=== PATIENT | male | born 1970 | race Two or more races ===

== ENCOUNTER 2024-08-23 12:02 | Inpatient (IN) | payer MEDICAID, OTHER ==
[2024-08-23] VITALS (9 sets, daily range): BP systolic 129–136; BP diastolic 58–64; PULSE 75–104; RESP 13–33; TEMP 97.9; O2SAT 91–100
[~2024-08-23] VITALS: Ht 177.8 cm; Wt 107.1 kg
[2024-08-23] MEDS: VANCOMYCIN 1GM/250ML KIT 250 ML IV SCH (00:15)
[2024-08-23] MEDS: InsuLIN REG 1unit/0.01ml Soln (100units/ml) SC SCH (00:15)
--- NOTE | 2024-08-23 12:29 | ED.PDOC ---
Musculoskeletal HPI Comments HPI: 53 year old male brought in by son presents to the ED with chief complaint of left foot wound. Patient reports that he has been experiencing left foot swelling, pain, redness for the past 2 days. Patient relays that he has been visiting his embedded systems designer every 3 days for wound checks as he had a callous shaved at the wound site performed by Dr. Saldana previously. Patient states when checked today by his Pleat Taper, the redness had been spreading up his leg and he was advised to come to the ED for further evaluation and treatment. Patient notes he has had some recent fever and has been taking antibiotics for the past 10 days. Patient currently has no feeling to his lower extremities due to byron betes. Patient reports that he has not taken his blood pressure medication this morning. Patient denies any N/V/D, dizziness, chills, chest pain, or SOB. Initial Vital Signs: Temp : 99.6F BP: 174/82 HR: 97 RR: 16 SpO2: 97% Past Medical History: DM, HTN, HLD Past Surgical History: Denies Social History: Denies smoking, ETOH, or drug use. Allergies: NKDA HPI: Poor Historian. REVIEW OF SYSTEMS: CONSTITUTIONAL: Denies acute: fever, diaphoresis, chills, generalized weakness. HEAD: Denies acute: headache, photophobia Eyes: Denies acute: Double vision, vision loss, eye pain, eye discharge. EARS: Denies acute: tinnitus, hearing loss, ear discharge, ear pain, THROAT: Denies acute: sore throat, swelling, difficulty swallowing , pain with swallo wing, change in voice. NECK: Denies acute: neck pain, neck swelling, stiff neck. HEART: Denies acute : chest pain, palpitations, LUNGS: Denies acute: SOB, wheezing, cough, hemoptysis ABDOMEN: Denies acute: abdominal pain, Nausea, Vomiting, diarrhea, melena , hematemesis, hematochezia SKIN: Denies acute: itchiness. EXTREMITIES: Denies acute: calf pain, numbness, tingling, weakness, denies pain in extremity. Denies acute: Low back pain. Neuro: Denies acute: focal neurological deficit, motor or sensory focal neurological deficit, tremors, seizure like activity, confusion, dizziness, change in mental status, loss of bowel or bladder function, cauda equina like symptoms. : Denies acute: dysuria, hematuria, flank pain, increase in urinary frequency. PSYCH: Denies acute: hallucination, suicidal ideation, homicidal ideation. PHYSICAL EXAM: General: no acute distress, awake and alert. Head: normocephalic, atraumatic. Neck: supple, trachea is midline, no swelling. Throat: Normal phonation. Eyes:, no erythema, no purulent discharge, no proptosis, no icterus. Heart: regular rate, regular rhythm, no significant murmur appreciated. Lungs: no apparent respiratory distress, Able to speak in full sentences. No wheezing, no rhonchi, no crackles. No stridors Clear to auscultation bilaterally. Abdomen: non tender to palpation, non distended, soft, no guarding, no rebound, + bowel sounds. Neuro: Awake, Alert, oriented to name, self, situation, follows commands GCS=15. Speech is normal. Skin: no petechia, no purpura, no cyanosis, non-pale, not jaundice. Lower extremities: no deformity, no focal swelling, no calf TTP. Evaluation of the leg complaint: Left lower extremity foot ulcer/wound at the lateral aspect of the foot with the associated puffiness of the foot and redness and generalized erythema that extends all the way to [id number]. Patient is neurovascularly intact in the affected extremity. Pedal pulses palpable. Motor and sensory are present. Makes eye contact. moves all four extremities. Face: no apparent facial droop. Ambulating in the ED independently. ED COURSE: Chief Complaint: Lower Extremity Time Seen by MD: 12:20 Reviewed Notes: Medications, Allergies Allergies: Coded Allergies: NO KNOWN ALLERGIES (Unverified , 08/23/24) Information Source: Patient, Relative Mode of Arrival: Wheelchair Was a procedure done? Was a procedure done?: No Differential Diagnosis EXT Differential Diagnosis: Cellulitis, Other (Ddx include but not limited to cellulitis, abscess, lymphadenitis, lymphangitis, trauma, DVT, venous insufficiency, trauma, r/o septic joint., r/o associated osteomylitis, flexor tensenovitis, deep tissue infection, neoplasm, necrotizing fascitits, hematoma, gout.) X-Ray, Labs, Meds, VS Vital Signs Date Time Temp Pulse Resp B/P (MAP) Pulse Ox O2 Delivery O2 Flow Rate FiO2 08/23/24 19:20 97.7 88 12 159/92 (114) 95 97.7 08/23/24 19:20 Room Air* 0 21 08/23/24 18:15 88 20 151/87 (108) 93 08/23/24 16:00 86 08/23/24 16:00 86 16 145/82 (103) 95 08/23/24 14:00 97.9 97 16 158/103 (121) 96 97.9 08/23/24 13:15 104 18 97 Room Air* 0 08/23/24 12:46 104 18 97 Room Air 08/23/24 12:46 98.9 104 18 160/75 (103) 97 98.9 08/23/24 12:16 99.6 97 16 174/82 (112) 97 99.6 Lab Test 08/23/24 19:01 08/23/24 14:46 08/23/24 12:57 08/23/24 12:37 Range/Units Prothrombin Time 14.1 H 9.3-11.8 sec Prothrombin Time INR 1.37 H 0.9-1.15 Activated Partial Thromboplast Time 38.4 H 24.5-34.5 SEC Lactic Acid Level 1.3 2.5 *H 0.4-2.0 mmol/L White Blood Count 21.9 H 4.4-10.8 10^3/uL Red Blood Count 4.57 4.5-5.90 10^6/uL Hemoglobin 12.8 L 13.5-17.5 g/dL Hematocrit 39.1 L 41.0-53.0 % Mean Corpuscular Volume 85.6 80.0-100.0 fL Mean Corpuscular Hemoglobin 28.1 28.0-32.0 pg Mean Corpuscular Hemoglobin Concent 32.8 32.0-36.0 g/dL Red Cell Distribution Width 14.6 H 11.8-14.3 % Platelet Count 474 H 140-450 10^3/uL Mean Platelet Volume 7.2 6.9-10.8 fL Neutrophils (%) (Auto) 91.9 H 37.0-80.0 % Lymphocytes (%) (Auto) 2.6 L 10.0-50.0 % Monocytes (%) (Auto) 5.2 0.0-12.0 % Eosinophils (%) (Auto) 0.2 0.0-7.0 % Basophils (%) (Auto) 0.1 0.0-2.0 % Neutrophils # (Auto) 20.2 H 1.6-8.6 10 ^3/uL Lymphocytes # (Auto) 0.6 0.4-5.4 10 ^3/uL Monocytes # (Auto) 1.1 0-1.3 10 ^3/uL Eosinophils # (Auto) 0 0-0.8 10 ^3/uL Basophils # (Auto) 0 0-0.2 10 ^3/uL Nucleated Red Blood Cells 0.0 % Erythrocyte Sedimentation Rate 76 H 0-20 mm/hr Sodium Level 124 L 136-145 mmol/L Potassium Level 5.4 H 3.5-5.1 mmol/L Chloride Level 95 L 98-107 mmol/L Carbon Dioxide Level 22 20-31 mmol/L Anion Gap 7 5-15 Blood Urea Nitrogen 22 9-23 mg/dL Creatinine 1.05 0.700-1.30 mg/dL Glomerular Filtration Rate Calc 84 >90 mL/min BUN/Creatinine Ratio 21.0 H 10.0-20.0 Serum Glucose 137 H 74-106 mg/dL Calcium Level 8.8 8.7-10.4 mg/dL Total Bilirubin 1.5 H 0.2-1.0 mg/dL Aspartate Amino Transferase (AST) 290 H 13-40 U/L Alanine Aminotransferase (ALT) 222 H 7-40 U/L Alkaline Phosphatase 212 H 46-116 U/L Troponin I High Sensitivity 10 </=54 ng/L C-Reactive Protein High Sensitivity > 20.00 H <1.0 mg/dL B-Type Natriuretic Peptide 368.21 0-100 pg/mL Total Protein 6.9 5.7-8.2 g/dL Albumin 3.5 3.2-4.8 g/dL Urine Color Yellow Yellow Urine Clarity Clear Clear Urine pH 5.0 5.0-9.0 Urine Specific [place] 1.019 1.001-1.035 Urine Protein 1+ H Negative Urine Ketones Trace Negative Urine Blood 1+ H Negative /uL Urine Nitrite Negative Negative Urine Bilirubin Negative Negative Urine Urobilinogen Normal Negative mg/dL Urine Leukocyte Esterase Negative Negative /uL Urine RBC 2 0 - 3 /hpf Urine Microscopic WBC 2 0-3 /HPF Urine Squamous Epithelial Cells None seen <5 /hpf Urine Bacteria None seen None Seen /hpf Urine Glucose 4+ H Normal mg/dL Test 08/23/24 12:13 Range/Units POC Glucose 141 H 70-106 mg/dl Current Medications Medications (Trade) Dose Ordered Sig/Rosana Route Start Time Stop Time Status Last Admin Sodium Chloride 1,000 ml @ 1,000 mls/hr Q1H ONCE IV 08/23/24 12:30 08/23/24 13:29 DC 08/23/24 13:37 Piperacillin Sod/ Tazobactam Sod 100 ml @ 100 mls/hr ONCE ONCE IV 08/23/24 12:30 08/23/24 13:29 DC 08/23/24 13:36 Vancomycin HCl 250 ml @ 250 mls/hr ONCE ONCE IV 08/23/24 12:30 08/23/24 13:29 DC 08/23/24 12:30 Metronidazole 100 ml @ 100 mls/hr ONCE ONCE IV 08/23/24 17:45 08/23/24 18:44 DC 08/23/24 18:06 Sodium Chloride 1,000 ml @ 1,000 mls/hr Q1H ONCE IV 08/23/24 17:45 08/23/24 18:44 DC 08/23/24 18:07 [place] [id number] Ph: [phone] DIAGNOSTIC IMAGING Diagnostic Imaging Report : [id number] Signed PATIENT: ADAM RIVAS AACCT: [id number] UNIT: [id number] : 1970 LOC: ER ROOM / BED: / AGE / SEX: 53 / M ADM STATUS: REG ER SERVICE 1242 ORDERING PHYSICIAN: KD DIOP DO PROCEDURE(s): LLDVT - LT Lower DVT REASON: redness swelling ORDER NUMBER(s): [id number], ACCESSION NUMBER(s): [id number] Left lower extremity venous duplex Clinical History: redness swelling Comparison: None Technique: Duplex Doppler evaluation of the deep venous system of the left lower extremity from the common femoral vein to the popliteal vein including color Doppler and spectral/pulsed waveform analysis was performed. Findings: The common femoral vein demonstrates appropriate compressibility and waveform variability. There is compressibility/patency of the great saphenous vein at the proximal thigh. The femoral vein demonstrates appropriate compressibility and waveform variability. The deep femoral vein demonstrates appropriate compressibility and waveform variability. The popliteal vein demonstrates appropriate compressibility and waveform variability. There is normal compressibility at the tibioperoneal trunk. Impression: No left femoropopliteal venous thrombosis. ATED BY: ALEX CHAVEZ MD DICTATED DATE/TIME: 08/23/24 135 SIGNED BY: ALEX CHAVEZ MD SIGNED DATE/TIME: 08/23/24 135 CC: [place] [address] Ph: [phone] DIAGNOSTIC IMAGING Diagnostic Imaging Report : [id number] Signed PATIENT: ADAM RIVAS AACCT: [id number] UNIT: [id number] : 1970 LOC: ER ROOM / BED: / AGE / SEX: 53 / M ADM STATUS: REG ER SERVICE 1226 ORDERING PHYSICIAN: KD DIOP DO PROCEDURE(s): LE1CR - LT LOWER EXTREMITY W CONTRAS REASON: foot wound infection ORDER NUMBER(s): [id number], ACCESSION NUMBER(s): [id number] Procedure: CT LT LOWER EXTREMITY W CONTRAS Reason for study/Clinical History: foot wound infection Comparison Study: None available at time of dictation. CT LEFT foot and ankle with IV contrast Radiation Dose Information: CT Dose: CTDI volume is 7.75 mGy. Dose-length product is 202.22 mGy*cm Omnipaque 300: 85 mL TECHNIQUE: Multiple CT images of the distal left tibia and fibula and left was performed on the [employer] multi slice CT scanner at [facility] . 3D postprocessing images were performed on a dedicated workstation and images were reviewed and interpreted for reporting. FINDINGS: Vascular: Opacified anterior tibial artery and dorsalis pedis and posterior tibial artery. Subcutaneous edema. Subcutaneous air over the dorsum plantar soft tissues of the foot. Small bubbles of air noted extending over the and between the tarsal bones and metatarsals and in the soft tissues extending along the distal tibia and fibula. IMPRESSION: 1. Subcutaneous edema around the ankle and foot. 2. Calcified dorsalis pedis and anterior tibial artery and posterior tibial artery. Calcifications are so dense that contrast is not definitively identified. 3. Scattered bubbles of air along the dorsum of the left tarsals metatarsal plantar surface of the left foot. 4. Subcutaneous air extending along the lateral surface of the distal tibia and medial talocalcaneal soft tissues. 5. Subcutaneous air soft tissues around the 1st and 2nd metatarsals and toes. 6. Subcutaneous air is noted in the soft tissues of the distal tibia and fibula consistent with gas producing infection. All CT scans at this medical facility are performed using dose modulation techniques as appropriate to a performed exam including the following: Automated exposure control was utilized; adjustment of the MA and/or KV according to patient size; and use of iterative reconstruction technique. ATED BY: LANA OROZCO Jr., DO DICTATED DATE/TIME: 08/23/24 151 SIGNED BY: LANA OROZCO Jr., SIGNED DATE/TIME: 08/23/24 1515 CC: Time of 1ST Reevaluation: 13:20 Reevaluation 1ST: Unchanged Time of 2ND Reevaluation: 17:41 (I have just evaluated the CT scan of the extremity. We have not received any critical reports from Radiology. Reports suggest gas-forming infection. I will add additional antibiotics.) Time of 3RD Reevaluation: 18:06 (Case discussed with general surgery on the phone at this time. They agreed to follow in consult Dr. Amaya.) Patient Education/Counseling: Diagnosis, Treatment Family Education/Counseling: Diagnosis, Treatment Departure 1 Departure Time of Disposition: 12:35 Impression: Primary Impression: Left leg cellulitis Additional Impressions: Diabetic foot ulcer Necrotizing fasciitis Sepsis Hyponatremia Disposition: ADMITTED INPATIENT Admit to: ICU Condition: Critical Discharged With: Self Critical Care Note Critical Care Time?: Yes (1 hr-critical care time only) I personally scribed for KD DIOP DO ([email or web address]) on 08/23/24 at 12:29. Electronically submitted by Bryson South ([email or web address]). I personally scribed for KD DIOP DO ([email or web address]) on 08/23/24 at 14:53. Electronically submitted by Bryson South ([email or web address]). I personally scribed for KD DIOP DO ([email or web address]) on 08/23/24 at 17:44. Electronically submitted by Bryson [place] ([email or web address]). KD DIOP DO Aug 23, 2024 12:29
[2024-08-23] MEDS: VANCOMYCIN 1GM/250ML KIT 250 ML IV ONE (12:30)
[2024-08-23 13:04] LABS: Urine Bacteria None Seen /hpf (None Seen)
[2024-08-23 13:11] LABS: Urine Blood 1+ /uL (Negative); Urine Clarity Clear (Clear); Urine Color Yellow (Yellow); Urine Protein, UAD 1+ (Negative); Urine Specific Gravity 1.019 (1.001-1.035); Urine Squamous Epithelial Cell None Seen /hpf (<5); Urine Urobilinogen Normal (Negative); Urine WBC 2 /HPF (0-3)
[2024-08-23 13:28] LABS: Basophils # (auto) 0 10 ^3/uL (0-0.2); Basophils % (auto) 0.1 % (0.0-2.0); Eosinophils # (auto) 0 10 ^3/uL (0-0.8); Hematocrit 39.1 % (41.0-53.0); Lymphocytes # (auto) 0.6 10 ^3/uL (0.4-5.4)
[2024-08-23 13:31] LABS: Eosinophils % (auto) 0.2 % (0.0-7.0); Hemoglobin 12.8 g/dL (13.5-17.5); Lymphocytes % (auto) 2.6 % (10.0-50.0); Mean Corpuscular Hemoglobin 28.1 pg (28.0-32.0); Mean Corpuscular Hgb Conc. 32.8 g/dL (32.0-36.0); Mean Corpuscular Volume 85.6 fL (80.0-100.0); Monocytes # (auto) 1.1 10 ^3/uL (0-1.3); Monocytes % (auto) 5.2 % (0.0-12.0); Neutrophils # (auto) 20.2 10 ^3/uL (1.6-8.6); Neutrophils % (auto) 91.9 % (37.0-80.0); Platelet Count (auto) 474 10^3/uL (140-450); Red Blood Cells 4.57 10^6/uL (4.5-5.90); Red Cell Distribution Width 14.6 % (11.8-14.3); White Blood Cell 21.9 10^3/uL (4.4-10.8)
[2024-08-23] MEDS: PIPERACILLIN-TAZOB 3.375GM 100 ML IV ONE (13:36)
[2024-08-23] MEDS: SODIUM CHLORIDE 0.9% 1,000 ML IV ONE ×2 (13:37→18:07)
[2024-08-23 13:51] LABS: Albumin 3.5 g/dL (3.2-4.8); Alkaline Phosphatase 212 U/L (46-116); Anion Gap 7 (5-15); Aspartate Aminotransferase 290 U/L (13-40); Blood Urea Nitrogen 22 mg/dL (9-23); Calcium 8.8 mg/dL (8.7-10.4); Carbon Dioxide 22 mmol/L (20-31); Chloride 95 mmol/L (98-107); Glucose 137 mg/dL (74-106); Potassium 5.4 mmol/L (3.5-5.1); Sodium 124 mmol/L (136-145); Total Protein 6.9 g/dL (5.7-8.2)
[2024-08-23 13:52] LABS: Alanine Aminotransferase 222 U/L (7-40); Bilirubin, Total 1.5 mg/dL (0.2-1.0)
--- NOTE | 2024-08-23 13:53 | DVH ---
Left lower extremity venous duplex Clinical History: redness swelling Comparison: None Technique: Duplex Doppler evaluation of the deep venous system of the left lower extremity from the common femor al vein to the popliteal vein including color Doppler and spectral/pulsed waveform analysis was perfo rmed. Findings: The common femoral vein demonstrates appropriate compressibility and waveform variability. There is compressibility/patency of the great saphenous vein at the proximal thigh. The femoral vein demonstrates appropriate compressibility and waveform variability. The deep femoral vein demonstrates appropriate compressibility and waveform variability. The popliteal vein demonstrates appropriate compressibility and waveform variability. There is normal compressibility at the tibioperoneal trunk. Impression: No left femoropopliteal venous thrombosis.
[2024-08-23 13:58] LABS: Lactic Acid w/Reflex 2.5 mmol/L (0.4-2.0)
[2024-08-23 14:00] LABS: CRP High Sensitivity > 20.00 mg/dL (<1.0)
[2024-08-23] MEDS: IOHEXOL 300 MG/ML 100ML BOTTLE IJ ONE (14:02)
[2024-08-23 14:03] LABS: Erythrocyte Sedimentation Rate 76 mm/hr (0-20)
--- NOTE | 2024-08-23 15:18 | DVH ---
Procedure: CT LT LOWER EXTREMITY W CONTRAS Reason for study/Clinical History: foot wound infection Comparison Study: None available at time of dictation. CT LEFT foot and ankle with IV contrast Radiation Dose Information: CT Dose: CTDI volume is 7.75 mGy. Dose-length product is 202.22 mGy*cm Omnipaque 300: 85 mL TECHNIQUE: Multiple CT images of the distal left tibia and fibula and left was performed on the [employer] multi slice CT scanner at [facility] . 3D postprocessing images were performed on a dedicated workstation and images were reviewed and inter preted for reporting. FINDINGS: Vascular: Opacified anterior tibial artery and dorsalis pedis and posterior tibial artery. Subcutaneous edema. Subcutaneous air over the dorsum plantar soft tissues of the foot. Small bubbles of air noted extend ing over the and between the tarsal bones and metatarsals and in the soft tissues extending along the distal tibia and fibula. IMPRESSION: 1. Subcutaneous edema around the ankle and foot. 2. Calcified dorsalis pedis and anterior tibial artery and posterior tibial artery. Calcifications ar e so dense that contrast is not definitively identified. 3. Scattered bubbles of air along the dorsum of the left tarsals metatarsal plantar surface of the le ft foot. 4. Subcutaneous air extending along the lateral surface of the distal tibia and medial talocalcaneal soft tissues. 5. Subcutaneous air soft tissues around the 1st and 2nd metatarsals and toes. 6. Subcutaneous air is noted in the soft tissues of the distal tibia and fibula consistent with gas p roducing infection. All CT scans at this medical facility are performed using dose modulation techniques as appropriate t o a performed exam including the following: Automated exposure control was utilized; adjustment of th e MA and/or KV according to patient size; and use of iterative reconstruction technique.
[2024-08-23] MEDS: metroNIDAZOLE 500MG/100ML 100 ML IV ONE (18:06)
[2024-08-23] MEDS ORDERED: LIDOCAINE HCL 2% TOP JELLY 5ML TOP ONE (19:13)
[2024-08-23] MEDS ORDERED: SODIUM CHLORIDE LOCK 10 ML ONE (19:13)
[2024-08-23] MEDS ORDERED: ROCURONIUM 10MG/ML 10ML VIAL IV ONE (19:13)
[2024-08-23] MEDS ORDERED: KETAMINE 50mg/ML 1ml syringe ONE (19:13)
[2024-08-23] MEDS ORDERED: PROPOFOL 10 MG/ML 20 ML IV ONE (19:13)
[2024-08-23] MEDS ORDERED: LIDOCAINE 1% INJ PF 5ML AMP ONE (19:13)
[2024-08-23] MEDS ORDERED: ONDANSETRON HCL 4 MG/2 ML VIAL ONE (19:13)
[2024-08-23] MEDS ORDERED: MIDAZOLAM HCL 2MG/2ML 2ml VIAL (1mg/ml) ONE (19:13)
[2024-08-23] MEDS ORDERED: fentaNYL CITRATE 100 MCG/2 ML VL ONE (19:13)
[2024-08-23] MEDS ORDERED: ONDANSETRON HCL 4 MG/2 ML VIAL IV PRN (19:15)
[2024-08-23] MEDS ORDERED: DOCUSATE SOD 100 MG CAP PO PRN (19:15)
[2024-08-23] MEDS ORDERED: DEXTROSE (50%) 50ML SYRG IV PRN (19:15)
[2024-08-23] MEDS ORDERED: hydrALAZINE HCL 20 MG/ML VL IV PRN (19:15)
[2024-08-23] MEDS ORDERED: MORPHINE SULFATE INJ 2 MG/ml SYRG IV PRN ×3 (19:15→19:45)
[2024-08-23] MEDS ORDERED: ACETAMINOPHEN 325 MG TAB PO PRN (19:15)
[2024-08-23] MEDS ORDERED: VANCOMYCIN PER PHARMACY 0 MG IV SCH (19:15)
[2024-08-23] MEDS ORDERED: MORPHINE SULFATE 4 MG/ML SYR/VIAL IV PRN (19:30)
[2024-08-23] MEDS ORDERED: HYDROmorphone HCL 2 MG/ML VL/or syr IV PRN ×2 (19:30)
[2024-08-23] MEDS ORDERED: fentaNYL CITRATE 100 MCG/2 ML VL IV PRN (19:30)
--- NOTE | 2024-08-23 19:34 | DVHINCON2 ---
Date of service: Aug 23, 2024 History of Present Illness 53-year-old diabetic male with a chronic left foot wound that has been treated by a motorcycle technician. According to the family patient developed redness that was worsening and was told by his motorcycle technician to come to the emergency room. Past Medical History Diabetes. Hypertension. Hyperlipidemia. Past Surgical History None Family History Noncontributory Social History No alcohol, tobacco, IV drug use Allergies: Coded Allergies: NO KNOWN ALLERGIES (Unverified , 08/23/24) Current Medications Current Medications Medications (Trade) Dose Ordered Sig/Rosana Route PRN Reason Start Time Stop Time Status Last Admin Piperacillin Sod/ Tazobactam Sod 100 ml @ 25 mls/hr Q8HR IV 08/23/24 22:00 UNV Vancomycin HCl 0 ml @ 0 mls/hr UD IV 08/23/24 19:15 UNV Amlodipine Besylate (Norvasc Tablet) 5 mg DAILY PO 08/24/24 10:00 UNV Hydralazine HCl (Apresoline Injection) 10 mg Q6HP PRN IV SBP>150 08/23/24 19:15 UNV Pantoprazole Sodium (Protonix) 40 mg DAILY IV 08/24/24 10:00 UNV Diagnostic Test (Pha) (Accu-Chek Comfort Curve T) 1 strip ACHS 08/23/24 22:00 UNV Insulin Human Regular (InsuLIN R) ACHS SC 08/23/24 22:00 UNV Dextrose 50 ml UD PRN IV Blood Sugar LESS THAN 60 08/23/24 19:15 UNV Sodium Chloride 1,000 ml @ 120 mls/hr Q8H20M IV 08/23/24 19:15 UNV Acetaminophen/ Hydrocodone Bitart ([place] 5/325MG Tab) 1 tab Q4HP PRN PO MODERATE PAIN (4-6 PAIN SCALE) 08/23/24 19:15 UNV Ondansetron HCl (Zofran) 4 mg Q4HP PRN IV NAUSEA / VOMITING 08/23/24 19:15 UNV Docusate Sodium (Colace Capsule) 100 mg BIDPRN PRN PO FOR CONSTIPATION 08/23/24 19:15 UNV Enoxaparin Sodium (Lovenox) 40 mg DAILY SC 08/24/24 10:00 UNV Acetaminophen (Tylenol Tablet) 650 mg Q6HP PRN PO PAIN SCALE 1-3 OR TEMP>100.4 08/23/24 19:15 UNV Morphine Sulfate 2 mg Q4HPRN PRN IV SEVERE PAIN (7-10 PAIN SCALE) 08/23/24 19:15 UNV Vital Signs Vital Signs Date Time Temp Pulse Resp B/P (MAP) Pulse Ox O2 Delivery O2 Flow Rate FiO2 08/23/24 18:15 88 20 151/87 (108) 93 08/23/24 14:00 97.9 97.9 08/23/24 13:15 Room Air* 0 21 Physical Exam GEN: Obese male in no acute distress. Alert. HEENT: Normocephalic atraumatic. Moist mucous membranes. Anicteric sclerae. CV: RRR Respiratory: Coarse breath sounds ABD: Obese abdomen. Soft. Nontender nondistended. Left lower extremity. There is a 8 x 5 cm open gangrenous wound the lateral aspect of his left foot with foul-smelling drainage. There was significant erythema and tissue edema extending up to his mid thigh with some blistering beginning to form of the dorsum of his foot. There is crepitus in the soft tissue extending up to the mid tibial region. There was no tenderness to palpation. Lower extremity CT: There is subcutaneous edema around the ankle and the foot with calcified dorsalis pedis and posterior tibial artery and posterior tibial artery. Calcifications that so dense that contrast is not visualized in the foot. There was scattered bubbles of air along the dorsum of the left tarsal metatarsal plantar surface of the left foot extending along the lateral surface of the distal tibia and medial talocalcaneal soft tissue and also around the metatarsals. There is subcutaneous air in the soft tissue of the distal tibia and fibula consistent with gas producing infection Labs/Diagnostic Data Labs Test 08/23/24 19:01 08/23/24 14:46 08/23/24 12:57 08/23/24 12:37 Range/Units Lactic Acid Level 1.3 0.4-2.0 mmol/L White Blood Count 21.9 H 4.4-10.8 10^3/uL Red Blood Count 4.57 4.5-5.90 10^6/uL Hemoglobin 12.8 L 13.5-17.5 g/dL Hematocrit 39.1 L 41.0-53.0 % Mean Corpuscular Volume 85.6 80.0-100.0 fL Mean Corpuscular Hemoglobin 28.1 28.0-32.0 pg Mean Corpuscular Hemoglobin Concent 32.8 32.0-36.0 g/dL Red Cell Distribution Width 14.6 H 11.8-14.3 % Platelet Count 474 H 140-450 10^3/uL Mean Platelet Volume 7.2 6.9-10.8 fL Neutrophils (%) (Auto) 91.9 H 37.0-80.0 % Lymphocytes (%) (Auto) 2.6 L 10.0-50.0 % Monocytes (%) (Auto) 5.2 0.0-12.0 % Eosinophils (%) (Auto) 0.2 0.0-7.0 % Basophils (%) (Auto) 0.1 0.0-2.0 % Neutrophils # (Auto) 20.2 H 1.6-8.6 10 ^3/uL Lymphocytes # (Auto) 0.6 0.4-5.4 10 ^3/uL Monocytes # (Auto) 1.1 0-1.3 10 ^3/uL Eosinophils # (Auto) 0 0-0.8 10 ^3/uL Basophils # (Auto) 0 0-0.2 10 ^3/uL Nucleated Red Blood Cells 0.0 % Erythrocyte Sedimentation Rate 76 H 0-20 mm/hr Sodium Level 124 L 136-145 mmol/L Potassium Level 5.4 H 3.5-5.1 mmol/L Chloride Level 95 L 98-107 mmol/L Carbon Dioxide Level 22 20-31 mmol/L Anion Gap 7 5-15 Blood Urea Nitrogen 22 9-23 mg/dL Creatinine 1.05 0.700-1.30 mg/dL Glomerular Filtration Rate Calc 84 >90 mL/min BUN/Creatinine Ratio 21.0 H 10.0-20.0 Serum Glucose 137 H 74-106 mg/dL Calcium Level 8.8 8.7-10.4 mg/dL Total Bilirubin 1.5 H 0.2-1.0 mg/dL Aspartate Amino Transferase (AST) 290 H 13-40 U/L Alanine Aminotransferase (ALT) 222 H 7-40 U/L Alkaline Phosphatase 212 H 46-116 U/L Troponin I High Sensitivity 10 </=54 ng/L C-Reactive Protein High Sensitivity > 20.00 H <1.0 mg/dL B-Type Natriuretic Peptide 368.21 0-100 pg/mL Total Protein 6.9 5.7-8.2 g/dL Albumin 3.5 3.2-4.8 g/dL Urine Color Yellow Yellow Urine Clarity Clear Clear Urine pH 5.0 5.0-9.0 Urine Specific [place] 1.019 1.001-1.035 Urine Protein 1+ H Negative Urine Ketones Trace Negative Urine Blood 1+ H Negative /uL Urine Nitrite Negative Negative Urine Bilirubin Negative Negative Urine Urobilinogen Normal Negative mg/dL Urine Leukocyte Esterase Negative Negative /uL Urine RBC 2 0 - 3 /hpf Urine Microscopic WBC 2 0-3 /HPF Urine Squamous Epithelial Cells None seen <5 /hpf Urine Bacteria None seen None Seen /hpf Urine Glucose 4+ H Normal mg/dL Test 08/23/24 12:13 Range/Units POC Glucose 141 H 70-106 mg/dl Assessment 1. Necrotic left foot wet gangrene with possible necrotizing soft tissue infection extending up to his mid thigh 2. Sepsis with leukocytosis 3. Electrolyte imbalance with hyperkalemia Plan/Recommendation 1. Emergency left [id number] guillotine amputation. Informed consent: The surgery and its risks including but not limited to infection, bleeding requiring possible blood transfusion with the risk of hepatitis or HIV infection, possible perioperative [place] or stroke, possibility of staying intubated after surgery in the ICU, additional surgery including BKA revision were explained to the patient and his family. All questions were answered to the satisfaction. Patient and the family expressed verbal understanding and wished to proceed with the surgery Plan discussed with: Patient, Spouse, Daughter, Son SEAMUS FERGUSON MD Aug 23, 2024 19:34
--- NOTE | 2024-08-23 19:37 | DVHHP2 ---
History of Present Illness Reason for Visit: Necrotizing fasciitis History of Present Illness The patient is a 53-year-old male with past medical history of DM, hypertension, and hyperlipidemia who presented to [facility] ED with complaint of left diabetic foot ulcer. Patient reports that he has been experiencing left foot swelling, pain, redness for the past 2 days. He has been visiting his rooter operator every 3 days for wound checks as he had a callous shaved at the wound site performed by Dr. Saldana previously. Patient states when checked today by his Town Marshal, the redness had been spreading up his leg and he was advised to come to the ED for further evaluation and treatment. Patient was seen and evaluated in the ED, laboratory data shows WBC 21.9, platelets 474, ESR 76, sodium 124, potassium 5.4, BUN 22, creatinine 1.05, glucose 137, hemoglobin A1c 7.8, GFR 84, lactic acid 2.5 trending down to 1.3, C-reactive protein > 20.00, total bilirubin 1.5, AST 290, ALT 222, troponin 10, BNP 368.21. Left foot CT revealing subcutaneous edema around the ankle and foot, scattered bubbles of along the dorsum of the left tarsals metatarsal plantar surface of the left foot, subcutaneous air extending along the lateral surface of the distal tibia and medial talocalcaneal soft tissues. Patient was started on IV antibiotic regimen Zosyn, please see medication orders section in the computer. On my assessment, patient denied chest pain, no headache, no dizziness, no shortness of breath, no nausea, no vomiting, no fever, no chills. Patient was admitted for further evaluation and medical management. Past Medical History DM, HTN, HLD Past Surgical History Denies all surgeries Family History Reviewed, noncontributory to the management of this case. Past Social History The patient lives at home, denies smoking, alcohol or illicit drugs abuse. Review of Systems Constitutional: Yes: Weakness; No: Fever, Chills, Sweats, Malaise, Other Eyes: No: Pain, Vision change, Conjunctivae inflammation, Eyelid inflammation, Other, Redness ENT: No: Ear pain, Ear discharge, Nose pain, Nose discharge, Nose congestion, Mouth pain, Mouth swelling, Throat pain, Throat swelling, Other Respiratory: No: Cough, Dry, Shortness of breath, SOB with excertion, Wheezing, Hemoptysis, Pleuritic Pain, Sputum, Wheezing, Other Cardiovascular: No: Chest Pain, Palpitations, Orthopnea, Paroxysmal Noc. Dysp faustino, Edema, Lt Headedness, Other Gastrointestinal: No: Nausea, Vomiting, Abdominal Pain, Diarrhea, Constipation, Melena, Hematochezia, Other Genitourinary: No Dysuria, No Frequency, No Incontinence, No Hematuria, No Retention, No Other Musculoskeletal: other (Left foot swelling/redness); No: neck pain, shoulder pain, arm pain, back pain, hand pain, leg pain, foot pain Skin: Other (Left foot diabetic ulcer); No: Rash, Lesions, Jaundice, Bruising Neurological: No: Weakness, Numbness, Incoordination, Change in speech, Confusion, Seizures, Other Allergies: Coded Allergies: NO KNOWN ALLERGIES (Unverified , 08/23/24) Medications Current Medications Medications Dose Ordered Sig/Rosana Route Start Time Stop Time Status Last Admin Dose Admin Piperacillin Sod/ Tazobactam Sod 100 ml @ 25 mls/hr Q8HR IV 08/23/24 22:00 UNV Vancomycin HCl 0 ml @ 0 mls/hr UD IV 08/23/24 19:15 UNV Amlodipine Besylate 5 mg DAILY PO 08/24/24 10:00 UNV Hydralazine HCl 10 mg Q6HP PRN IV 08/23/24 19:15 UNV Pantoprazole Sodium 40 mg DAILY IV 08/24/24 10:00 UNV Diagnostic Test (Pha) 1 strip ACHS 08/23/24 22:00 UNV Insulin Human Regular ACHS SC 08/23/24 22:00 UNV Dextrose 50 ml UD PRN IV 08/23/24 19:15 UNV Sodium Chloride 1,000 ml @ 120 mls/hr Q8H20M IV 08/23/24 19:15 UNV Acetaminophen/ Hydrocodone Bitart 1 tab Q4HP PRN PO 08/23/24 19:15 UNV Ondansetron HCl 4 mg Q4HP PRN IV 08/23/24 19:15 UNV Docusate Sodium 100 mg BIDPRN PRN PO 08/23/24 19:15 UNV Enoxaparin Sodium 40 mg DAILY SC 08/24/24 10:00 UNV Acetaminophen 650 mg Q6HP PRN PO 08/23/24 19:15 UNV Morphine Sulfate 2 mg Q4HPRN PRN IV 08/23/24 19:15 UNV Fentanyl Citrate 25 mcg Q1HP PRN IV 08/23/24 19:30 08/23/24 19:31 UNV Hydromorphone HCl 0.5 mg Q10M PRN IV 08/23/24 19:30 08/23/24 20:11 UNV Morphine Sulfate 2 mg Q4H PRN IV 08/23/24 19:30 08/23/24 23:31 UNV Hydromorphone HCl 0.25 mg Q10M PRN IV 08/23/24 19:30 08/23/24 20:01 UNV Morphine Sulfate 1 mg Q30M PRN IV 08/23/24 19:30 08/23/24 21:31 UNV Exam Vital Signs Vital Signs Date Time Temp Pulse Resp B/P (MAP) Pulse Ox O2 Delivery O2 Flow Rate FiO2 08/23/24 18:15 88 20 151/87 (108) 93 08/23/24 14:00 97.9 97.9 08/23/24 13:15 Room Air* 0 21 General Appearance: Alert, Oriented X3, Cooperative, No acute distress HEENT: Atraumatic, PERRLA, EOMI, Mucous membr. moist/pink Respiratory: Clear to auscultation, Normal air movement Cardiovascular: Regular rate, Normal S1, Normal S2, No murmurs Abdominal: Normal bowel sounds, Soft, No tenderness, No hepatospenomegaly, No masses Extremities: No clubbing, No cyanosis, Normal pulses, Other (Left foot edema, tenderness/swelling.) Skin: No rashes, No breakdown, No significant lesion Neuro: Normal speech, Normal tone, Sensation intact, Cranial nerves 3-12 NL, Reflexes 2+, Other (Generalized weakness) Psych/Mental Status: Mental status NL, Mood NL Labs/Xrays Labs Test 08/23/24 19:01 08/23/24 14:46 08/23/24 12:57 08/23/24 12:37 Range/Units Lactic Acid Level 1.3 0.4-2.0 mmol/L White Blood Count 21.9 H 4.4-10.8 10^3/uL Red Blood Count 4.57 4.5-5.90 10^6/uL Hemoglobin 12.8 L 13.5-17.5 g/dL Hematocrit 39.1 L 41.0-53.0 % Mean Corpuscular Volume 85.6 80.0-100.0 fL Mean Corpuscular Hemoglobin 28.1 28.0-32.0 pg Mean Corpuscular Hemoglobin Concent 32.8 32.0-36.0 g/dL Red Cell Distribution Width 14.6 H 11.8-14.3 % Platelet Count 474 H 140-450 10^3/uL Mean Platelet Volume 7.2 6.9-10.8 fL Neutrophils (%) (Auto) 91.9 H 37.0-80.0 % Lymphocytes (%) (Auto) 2.6 L 10.0-50.0 % Monocytes (%) (Auto) 5.2 0.0-12.0 % Eosinophils (%) (Auto) 0.2 0.0-7.0 % Basophils (%) (Auto) 0.1 0.0-2.0 % Neutrophils # (Auto) 20.2 H 1.6-8.6 10 ^3/uL Lymphocytes # (Auto) 0.6 0.4-5.4 10 ^3/uL Monocytes # (Auto) 1.1 0-1.3 10 ^3/uL Eosinophils # (Auto) 0 0-0.8 10 ^3/uL Basophils # (Auto) 0 0-0.2 10 ^3/uL Nucleated Red Blood Cells 0.0 % Erythrocyte Sedimentation Rate 76 H 0-20 mm/hr Sodium Level 124 L 136-145 mmol/L Potassium Level 5.4 H 3.5-5.1 mmol/L Chloride Level 95 L 98-107 mmol/L Carbon Dioxide Level 22 20-31 mmol/L Anion Gap 7 5-15 Blood Urea Nitrogen 22 9-23 mg/dL Creatinine 1.05 0.700-1.30 mg/dL Glomerular Filtration Rate Calc 84 >90 mL/min BUN/Creatinine Ratio 21.0 H 10.0-20.0 Serum Glucose 137 H 74-106 mg/dL Calcium Level 8.8 8.7-10.4 mg/dL Total Bilirubin 1.5 H 0.2-1.0 mg/dL Aspartate Amino Transferase (AST) 290 H 13-40 U/L Alanine Aminotransferase (ALT) 222 H 7-40 U/L Alkaline Phosphatase 212 H 46-116 U/L Troponin I High Sensitivity 10 </=54 ng/L C-Reactive Protein High Sensitivity > 20.00 H <1.0 mg/dL B-Type Natriuretic Peptide 368.21 0-100 pg/mL Total Protein 6.9 5.7-8.2 g/dL Albumin 3.5 3.2-4.8 g/dL Urine Color Yellow Yellow Urine Clarity Clear Clear Urine pH 5.0 5.0-9.0 Urine Specific Russell 1.019 1.001-1.035 Urine Protein 1+ H Negative Urine Ketones Trace Negative Urine Blood 1+ H Negative /uL Urine Nitrite Negative Negative Urine Bilirubin Negative Negative Urine Urobilinogen Normal Negative mg/dL Urine Leukocyte Esterase Negative Negative /uL Urine RBC 2 0 - 3 /hpf Urine Microscopic WBC 2 0-3 /HPF Urine Squamous Epithelial Cells None seen <5 /hpf Urine Bacteria None seen None Seen /hpf Urine Glucose 4+ H Normal mg/dL Test 08/23/24 12:13 Range/Units POC Glucose 141 H 70-106 mg/dl PATIENT: ADAM RIVAS AACCT: [id number] UNIT: [id number] : 1970 LOC: ER ROOM / BED: / AGE / SEX: 53 / M ADM STATUS: REG ER SERVICE 1226 ORDERING PHYSICIAN: KD DIOP DO PROCEDURE(s): LE1CR - LT LOWER EXTREMITY W CONTRAS REASON: foot wound infection ORDER NUMBER(s): [id number], ACCESSION NUMBER(s): [id number] Procedure: CT LT LOWER EXTREMITY W CONTRAS Reason for study/Clinical History: foot wound infection Comparison Study: None available at time of dictation. CT LEFT foot and ankle with IV contrast Radiation Dose Information: CT Dose: CTDI volume is 7.75 mGy. Dose-length product is 202.22 mGy*cm Omnipaque 300: 85 mL TECHNIQUE: Multiple CT images of the distal left tibia and fibula and left was performed on the [employer] multi slice CT scanner at [facility] . 3D postprocessing images were performed on a dedicated workstation and images were reviewed and interpreted for reporting. FINDINGS: Vascular: Opacified anterior tibial artery and dorsalis pedis and posterior tibial artery. Subcutaneous edema. Subcutaneous air over the dorsum plantar soft tissues of the foot. Small bubbles of air noted extending over the and between the tarsal bones and metatarsals and in the soft tissues extending along the distal tibia and fibula. IMPRESSION: 1. Subcutaneous edema around the ankle and foot. 2. Calcified dorsalis pedis and anterior tibial artery and posterior tibial artery. Calcifications are so dense that contrast is not definitively identified. 3. Scattered bubbles of air along the dorsum of the left tarsals metatarsal plantar surface of the left foot. 4. Subcutaneous air extending along the lateral surface of the distal tibia and medial talocalcaneal soft tissues. 5. Subcutaneous air soft tissues around the 1st and 2nd metatarsals and toes. 6. Subcutaneous air is noted in the soft tissues of the distal tibia and fibula consistent with gas producing infection. ORDERING PHYSICIAN: KD DIOP DO PROCEDURE(s): LLDVT - LT Lower DVT REASON: redness swelling ORDER NUMBER(s): [id number], ACCESSION NUMBER(s): [id number] Left lower extremity venous duplex Clinical History: redness swelling Comparison: None Technique: Duplex Doppler evaluation of the deep venous system of the left lower extremity from the common femoral vein to the popliteal vein including color Doppler and spectral/pulsed waveform analysis was performed. Findings: The common femoral vein demonstrates appropriate compressibility and waveform variability. There is compressibility/patency of the great saphenous vein at the proximal thigh. The femoral vein demonstrates appropriate compressibility and waveform variability. The deep femoral vein demonstrates appropriate compressibility and waveform variability. The popliteal vein demonstrates appropriate compressibility and waveform variability. There is normal compressibility at the tibioperoneal trunk. Impression: No left femoropopliteal venous thrombosis. Assessment/Plan Assessment/Plan Necrotizing fasciitis Sepsis, unspecified organisms Left leg cellulitis Hyponatremia Elevated liver enzymes Diabetic foot ulcer Diabetes mellitus with hyperglycemia Plan 1. Admit to intensive care unit 2. Breathing treatment 3. Pain control management 4. IV antibiotic management 5. Management of fluids and electrolytes 6. Consultation for surgery 7. Diagnostic test left foot CT 8. DVT prophylaxis-on Lovenox 9. Repeat labs CBC, CMP in a.m. 10. Home medication reviewed and reconciled 11. Continue with current medical management 12. Treatment plan discussed with patient and RN. Patient verbalized understanding. Plan discussed with: Patient, Son (At bedside), Other (RN) My Orders Orders - ELDER DAMON DNP Procedure Category Date Status Time Piperacillin-Tazob PHA 08/23/24 Logged 3.375gm (Zosyn 3.375g 22:00 Vancomycin Per PHA 08/23/24 Logged Pharmacy 19:15 Amlodipine Tablet PHA 08/24/24 Logged (Norvasc Tablet) 10:00 Amlodipine Tablet PHA 08/23/24 Logged (Norvasc Tablet) 19:15 Hydralazine Injection PHA 08/23/24 Logged (Apresoline Inject 19:15 Consistent DIET 08/24/24 Transmitted Carb(Ccho)Diabetes Breakfast Pantoprazole PHA 08/24/24 Logged (Protonix) 10:00 Glucose Blood PHA 08/23/24 Logged (Accu-Chek Comfort 22:00 Insulin R (Human) PHA 08/23/24 Logged (Insulin R) 22:00 Dextrose 50% Syringe PHA 08/23/24 Logged 19:15 Allergies MARIA 08/23/24 In Process 19:04 Code Status CODE 08/23/24 Transmitted 19:04 Sodium Chloride 0.9% PHA 08/23/24 Logged 19:15 Oxygen Per Hour RT 08/23/24 Transmitted 19:04 Hydrocodone-Acet PHA 08/23/24 Logged 5/325mg Tab (Natrona 19:15 Ondansetron Hcl PHA 08/23/24 Logged (Zofran) 19:15 Docusate Sodium PHA 08/23/24 Logged Capsule (Colace 19:15 Enoxaparin Sodium PHA 08/24/24 Logged (Lovenox) 10:00 Complete Blood Count LAB 08/24/24 Verified 04:00 Comprehensive LAB 08/24/24 Verified Metabolic Panel 04:00 Condition: Serious MARIA 08/23/24 In Process 19:04 Acetaminophen Tablet PHA 08/23/24 Logged (Tylenol Tablet) 19:15 Bedrest With Bathroom MARIA 08/23/24 In Process Privileg 19:04 Morphine Sulfate PHA 08/23/24 Logged Injection 19:15 Sodium Zirconium PHA 08/23/24 Logged Cyclosilicate 19:15 Problem List: (1) Necrotizing fasciitis (2) Sepsis, unspecified organism (3) Left leg cellulitis (4) Diabetic foot ulcer (5) Elevated liver enzymes (6) Hyponatremia (7) Diabetes mellitus with hyperglycemia Date of Service: Aug 23, 2024 Billing Provider: ELDER DAMON DNP Common Visit Codes: [id number] INP/OBS CARE (HIGH) ELDER DAMON DNP Aug 23, 2024 19:37
[2024-08-23] MEDS ORDERED: NITROGLYCERIN 0.4 MG SL TAB SL PRN (19:45)
[2024-08-23] MEDS ORDERED: IBUPROFEN 600 MG TAB PO PRN (20:00)
[2024-08-23 20:04] LABS: INR 1.37 (0.9-1.15); Partial Thromboplastin Time 38.4 SEC (24.5-34.5); Prothrombin Time 14.1 sec (9.3-11.8)
[2024-08-23] MEDS: PIPERACILLIN-TAZO 4.5GM 100 ML IV ONE (20:15)
--- NOTE | 2024-08-23 21:43 | DVHOP2 ---
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 Farmer Anesthesia: General Consent: The patient was informed of the risks and benefits of the procedure. These incl ude but are not limited to complications of anesthesia, postoperative infection, incomplete relief of symptoms, recurrence of symptoms, damage to blood vessels, nerves and tendons, deep venous thrombosis, pulmonary embolism and possible need for repeat surgery in the future. Complications: None Estimated Blood Loss: 100 mL Fluids: 700 mL Findings: Wet gangrene of the left foot with pus tracking along the left tibia proximally Name of Procedure Performed Left tceaq-gwe-duse guillotine amputation Procedure Details Procedure Details: After induction of general anesthesia, patient's left lower extremity was prepped and draped in standard surgical fashion. The left lower extremity was exsanguinated with an Esmarch and the tourniquet was turned on to 250 mL of mercury. Total tourniquet time was 32 minutes. A circular incision was made just above the ankle and extended into soft tissue. There was a large amount of soft tissue edema noted. The anterior compartment was then divided getting down to the tibia. The tibia was then divided using a Gigli saw in the anterior tibial arteries and veins as well as the posterior tibial artery is the Newman were all clamped and divided using 0 Vicryl sutures. Posterior compartment was then divided sharply and all the veins were either cauterized or sealed using energy device. The area was then well irrigated. There was moderate amount of pus that was drained along the left tibia and this was swabbed for Gram stain and culture. Surgical site was then well irrigated and hemostasis was achieved. Surgical site was cleaned and dried and dressing was applied. Sponge, needle, instrument count at the end of the case were reported to be correct by the nursing staff. The patient tolerated procedure well and was awakened, extubated and transferred to recovery in stable condition. Specimen: Left foot Condition Stable Disposition Still a Patient SEAMUS AMAYA MD Aug 23, 2024 21:43
[2024-08-23] MEDS ORDERED: PIPERACILLIN-TAZOB 3.375GM 100 ML IV SCH (22:00)
[2024-08-23] MEDS: SODIUM CHLORIDE 0.9% 1,000 ML IV SCH (22:30)
[2024-08-23] MEDS: ACCU-CHEK COMFORT CURVE STRIP VI SCH (22:30)
[2024-08-23] MEDS: METOCLOPRAMIDE HCL 5MG/ml INJ 2ml VIAL IV ONE (22:33)
[2024-08-23] MEDS: KETOROLAC TROMETH 30 MG/ML 1ML VIAL IV ONE (22:33)
[2024-08-23 23:26] LABS: Basophils # (auto) 0.1 10 ^3/uL (0-0.2); Basophils % (auto) 0.5 % (0.0-2.0); Eosinophils # (auto) 0 10 ^3/uL (0-0.8); Hematocrit 30.5 % (41.0-53.0); Hemoglobin 10.4 g/dL (13.5-17.5); Lymphocytes # (auto) 0.3 10 ^3/uL (0.4-5.4); Lymphocytes % (auto) 1.6 % (10.0-50.0); Mean Corpuscular Hemoglobin 28.7 pg (28.0-32.0); Mean Corpuscular Hgb Conc. 33.9 g/dL (32.0-36.0); Mean Corpuscular Volume 84.6 fL (80.0-100.0); Monocytes # (auto) 0.7 10 ^3/uL (0-1.3); Monocytes % (auto) 3.2 % (0.0-12.0); Neutrophils # (auto) 20.1 10 ^3/uL (1.6-8.6); Neutrophils % (auto) 94.7 % (37.0-80.0); Platelet Count (auto) 391 10^3/uL (140-450); Red Blood Cells 3.61 10^6/uL (4.5-5.90); Red Cell Distribution Width 14.6 % (11.8-14.3); White Blood Cell 21.2 10^3/uL (4.4-10.8)
[2024-08-23 23:48] LABS: Anion Gap 7 (5-15); BUN/Creatinine Ratio 17.9 (10.0-20.0); Blood Urea Nitrogen 20 mg/dL (9-23); Chloride 103 mmol/L (98-107); Potassium 4.7 mmol/L (3.5-5.1)
[2024-08-23 23:57] LABS: Carbon Dioxide 18 mmol/L (20-31); Glucose 154 mg/dL (74-106); Sodium 128 mmol/L (136-145)
[2024-08-23 23:58] LABS: Alanine Aminotransferase 187 U/L (7-40); Albumin 2.9 g/dL (3.2-4.8); Alkaline Phosphatase 172 U/L (46-116); Aspartate Aminotransferase 267 U/L (13-40); Bilirubin, Total 1.2 mg/dL (0.2-1.0); Calcium 8.3 mg/dL (8.7-10.4)
[2024-08-24] VITALS (73 sets, daily range): BP systolic 105–148; BP diastolic 55–99; PULSE 63–89; RESP 11–30; TEMP 97–97.5; O2SAT 74–99
[2024-08-24] MEDS: SODIUM ZIRCONIUM CYCL 10 GM PAK PO ONE (00:14)
[2024-08-24] MEDS: amLODIPine BESYLATE 5 MG TAB PO ONE (00:14)
[2024-08-24] MEDS: VANCOMYCIN 1GM/250ML KIT 250 ML IV ONE (02:53)
[2024-08-24 03:56] LABS: Basophils # (auto) 0 10 ^3/uL (0-0.2); Basophils % (auto) 0.2 % (0.0-2.0); Eosinophils # (auto) 0.1 10 ^3/uL (0-0.8); Eosinophils % (auto) 0.3 % (0.0-7.0); Hematocrit 30.9 % (41.0-53.0); Hemoglobin 10.3 g/dL (13.5-17.5); Lymphocytes # (auto) 0.5 10 ^3/uL (0.4-5.4); Lymphocytes % (auto) 2.4 % (10.0-50.0); Mean Corpuscular Hemoglobin 29.7 pg (28.0-32.0); Mean Corpuscular Hgb Conc. 33.4 g/dL (32.0-36.0); Mean Corpuscular Volume 88.9 fL (80.0-100.0); Monocytes # (auto) 0.3 10 ^3/uL (0-1.3); Monocytes % (auto) 1.6 % (0.0-12.0); Neutrophils # (auto) 18.2 10 ^3/uL (1.6-8.6); Neutrophils % (auto) 95.5 % (37.0-80.0); Platelet Count (auto) 362 10^3/uL (140-450); Red Blood Cells 3.48 10^6/uL (4.5-5.90); Red Cell Distribution Width 15.2 % (11.8-14.3); White Blood Cell 19.1 10^3/uL (4.4-10.8)
[2024-08-24 04:05] LABS: Anion Gap 8 (5-15); BUN/Creatinine Ratio 16.3 (10.0-20.0); Bilirubin, Total 0.8 mg/dL (0.2-1.0); Blood Urea Nitrogen 17 mg/dL (9-23); Chloride 107 mmol/L (98-107); Potassium 4.8 mmol/L (3.5-5.1); Total Protein 5.7 g/dL (5.7-8.2)
[2024-08-24 04:12] LABS: Alanine Aminotransferase 166 U/L (7-40); Albumin 2.7 g/dL (3.2-4.8); Alkaline Phosphatase 159 U/L (46-116); Aspartate Aminotransferase 207 U/L (13-40); Calcium 8.3 mg/dL (8.7-10.4); Carbon Dioxide 14 mmol/L (20-31); Glucose 168 mg/dL (74-106); Sodium 129 mmol/L (136-145)
[2024-08-24] MEDS: PIPERACILLIN-TAZO 4.5GM 100 ML IV SCH (08:00)
[2024-08-24] MEDS: PANTOPRAZOLE 40 MG/10 ML VIAL INJ IV SCH (09:49)
[2024-08-24] MEDS: ENOXAPARIN SOD 40 MG/0.4 ML SYRINGE SC SCH (09:49)
[2024-08-24] MEDS: amLODIPine BESYLATE 5 MG TAB PO SCH (09:49)
[2024-08-24 10:27] LABS: Hematocrit 33.1 % (41.0-53.0); Hemoglobin 10.7 g/dL (13.5-17.5)
[2024-08-24 10:44] LABS: INR 1.54 (0.9-1.15); Partial Thromboplastin Time 37.7 SEC (24.5-34.5); Prothrombin Time 15.6 sec (9.3-11.8)
[2024-08-24] MEDS ORDERED: PANT40TA2 PO (10:48)
[2024-08-24] MEDS ORDERED: EMPA1TAB3 PO (10:48)
[2024-08-24] MEDS ORDERED: ERGO2000 PO (10:48)
[2024-08-24] MEDS ORDERED: AUG875T PO (10:48)
[2024-08-24] MEDS ORDERED: SACU1TAB PO (10:48)
[2024-08-24] MEDS ORDERED: APIX5TAB PO (10:48)
[2024-08-24] MEDS ORDERED: ASPI-543 PO (10:48)
[2024-08-24] MEDS ORDERED: AML5T PO (10:48)
[2024-08-24] MEDS ORDERED: GLIP5TAB21 PO (10:48)
[2024-08-24] MEDS ORDERED: ATOR20TA50 PO (10:48)
[2024-08-24] MEDS ORDERED: ACET250T20 PO (10:48)
[2024-08-24] MEDS ORDERED: CARV3.1240 PO (10:48)
[2024-08-24] MEDS ORDERED: SPIR25TA8 PO (10:48)
[2024-08-24 12:08] LABS: White Blood Cell 13.7 10^3/uL (4.4-10.8)
[2024-08-24] MEDS: VANCOMYCIN 1GM/250ML KIT 250 ML IV SCH (12:16)
--- NOTE | 2024-08-24 13:24 | DVHPN2 ---
Progress Note - Dictate Date Seen: Aug 24, 2024 Medical Necessity Reason Pt with a Central, PICC or Fol: No Subjective E: bleeding from left stump o/n. no complaints. denies pain. vital signs Vital Sign Date Time Temp Pulse Resp B/P (MAP) Pulse Ox O2 Delivery O2 Flow Rate FiO2 08/24/24 12:00 97.4 70 20 126/68 (87) 96 97.4 08/24/24 12:00 Room Air* 0 21 Total Intake and Output 08/23/24 08/23/24 08/24/24 15:00 23:00 07:00 Intake Total 120 ml 1450 ml Output Total 75 ml Balance 120 ml 1375 ml medications Current Medications Medications Dose Ordered Sig/Rosana Route Start Time Stop Time Status Last Admin Dose Admin Vancomycin HCl 0 ml @ 0 mls/hr UD IV 08/23/24 19:15 Amlodipine Besylate 5 mg DAILY PO 08/24/24 10:00 Hydralazine HCl 10 mg Q6HP PRN IV 08/23/24 19:15 Pantoprazole Sodium 40 mg DAILY IV 08/24/24 10:00 08/24/24 09:49 40 MG Diagnostic Test (Pha) 1 strip ACHS 08/23/24 22:00 08/24/24 11:31 1 STRIP Insulin Human Regular ACHS SC 08/23/24 22:00 08/24/24 11:33 3 UNITS Dextrose 50 ml UD PRN IV 08/23/24 19:15 Sodium Chloride 1,000 ml @ 120 mls/hr Q8H20M IV 08/23/24 19:15 08/24/24 12:08 120 MLS/HR Acetaminophen/ Hydrocodone Bitart 1 tab Q4HP PRN PO 08/23/24 19:15 Ondansetron HCl 4 mg Q4HP PRN IV 08/23/24 19:15 Docusate Sodium 100 mg BIDPRN PRN PO 08/23/24 19:15 Enoxaparin Sodium 40 mg DAILY SC 08/24/24 10:00 Morphine Sulfate 2 mg Q4HPRN PRN IV 08/23/24 19:15 Nitroglycerin 0.4 mg Q5MINP PRN SL 08/23/24 19:45 Morphine Sulfate 2 mg Q30M PRN IV 08/23/24 19:45 Piperacillin Sod/ Tazobactam Sod 100 ml @ 25 mls/hr Q8HR IV 08/24/24 06:00 08/24/24 08:00 25 MLS/HR Ibuprofen 600 mg Q6HP PRN PO 08/23/24 20:00 Vancomycin HCl 250 ml @ 200 mls/hr Q8H IV 08/24/24 12:00 08/24/24 12:16 200 MLS/HR objective GEN: NAD. alert. LEFT LOWER LEG: bandages stained with blood but no dripping or active bleeding. laboratory and microbiology Laboratory Tests 08/24/24 10:07 08/24/24 03:11 Test 08/24/24 03:11 Range/Units Serum Glucose 168 H 74-106 mg/dL Assessment/Plan A: 1. s/p left below knee guillotine amputation with postop bleeding but curr stable. P: 1. redress bandages tomorrow. 2. plan for definitive closure (BKA) in a few days after infection is resolved. Plan discussed with: Patient SEAMUS FERGUSON MD Aug 24, 2024 13:24
--- NOTE | 2024-08-24 13:51 | DVHPN2 ---
Assessment/Plan Assessment/Plan ICU note 53 yo M with IDDM admitted for nec fasc Seen by me today, s/p guilotine R BKA POD1 Physical exam Alert oriented x3 clear breath sounds s1 s2 rrr abdomen soft s/p L BKA Labs EKG imaging reviewed cultures pending Assessment and plan necrotizing fasciitis s/p L BKA septic shock hyperK transaminitis c/w vanc and zosyn resume home meds pain management iv ressucitation follow echo keep glucose between 150-200 keep K 4, Ph 3, Mg 2 lines castro diet cardiac dvt ppx lovenox gi ppx protonix code status full code goals of care curative critical care time 60 minutes Plan discussed with: Patient Date of Service: Aug 24, 2024 Billing Provider: BELLE VANEGAS MD Common Visit Codes: [id number] CARE 30-74 MIN BELLE VANEGAS MD Aug 24, 2024 13:51
[2024-08-24] MEDS: ACETAMINOPHEN 325 MG TAB PO SCH (14:00)
[2024-08-24] MEDS: IBUPROFEN 400 MG TAB PO SCH (14:00)
[2024-08-24] MEDS ORDERED: MORPHINE SULFATE 4 MG/ML SYR/VIAL IV PRN (14:00)
--- NOTE | 2024-08-24 15:39 | DVHSR ---
APPROVED REPORT EXAM: Two-dimensional and M-mode echocardiogram with Doppler and color Doppler. Blood Pressure: 134/67 mmHg INDICATION Elevated BNP RISK FACTORS Obesity: Height: 5' 10", Weight: 263 DIMENSIONS LVDd4.6 (3.8-5.7cm)LA (2D)4.6 (1.9-4.0cm)Aortic Root3.6 (2.0-3.7cm) LVDs3.5 (2.5-4.0cm)LA (MM) (1.9-4.0cm)Aortic Cusp Exc1.8 (1.5-2.0cm) EF (%) 45.0 (55-70%)Rt. Atrium4.2 (1.9-4.0cm)Asc. Aorta cm IVSd1.1 (0.7-1.1cm)RV (D) (1.8-2.4cm) PWd1.1 (0.7-1.1cm) Mitral Valve MitralMitral Stenosis E wave1.00m/sMV Mean GR.mmHg A wave0.90m/sMV Peak GR.mmHg E/A ratio1.12D MVAcm2 Aortic Valve Aortic ValveAortic Stenosis V10.80m/Cherelle Mean GR.4mmHg V21.30m/Cherelle Peak GR.7mmHg LVOT Diameter2.5 (1.8-2.4cm)Doppler AVA3.02cm2 Pulmonic Valve V20.90m/s Conclusion Technically good study. Sinus rhythm. Biatrial enlargement. Mild aortic root enlargement. Valves appear to be structurally normal. EF of 40% with mild anterior hypokinesis. RV Function is normal. Dopplers unremarkable. No PE masses or vegetations.
--- NOTE | 2024-08-24 20:02 | DVHINCON2 ---
Date of service: Aug 24, 2024 Referring Physician Qasim Alcala NP Reason for Consultation Septic shock History of Present Illness A 53-year-old man with past medical history of DM, hypertension, and hyperlipidemia who presented to ED on 08/23/24 with complaint of left diabetic foot ulcer. Patient reported experiencing left foot swelling, pain, redness for the past 2 days. He has been visiting his sales enablement specialist every 3 days for wound checks as he had a callous shaved at the wound site performed by Dr. Saldana previously. When checked today by sales enablement specialist, the redness had been spreading up his leg and he was advised to come to the ED for further evaluation and treatment. ED workup showed WBC 21.9, platelets 474, ESR 76, sodium 124, potassium 5.4, BUN 22, creatinine 1.05, glucose 137, hemoglobin A1c 7.8, GFR 84, lactic acid 2.5 trending down to 1.3, C-reactive protein > 20.00, total bilirubin 1.5, AST 290, ALT 222, troponin 10, BNP 368.21. Patient was admitted for further care with findings of necrotizing fasciitis. Pulmonary consultation is requested for evaluation and management due to the above findings. Review of Systems: 14-point review of systems negative unless otherwise noted above. Past Medical History: DM, hypertension, and hyperlipidemia Past Surgical History: None Medications: Reviewed. Allergies: No known drug allergies. Family History: No family history of premature CAD. No family history of lung disorders. Social History: Nonsmoker. No alcohol or illicit drug use. Allergies: Coded Allergies: NO KNOWN ALLERGIES (Unverified , 08/23/24) Home Meds Reported Medications Ergocalciferol (VITAMIN D2) 2,000 Unit Tab, 41729 UNIT PO Weekly, TAB 08/24/24 Acetazolamide (Acetazolamide) 250 Mg Tab, 500 MG PO Q6HPRN for 30 Days, MG 0 Refills 08/24/24 Empagliflozin (Jardiance) 25 Mg Tab, 25 MG PO DAILY, TAB 08/24/24 Apixaban Base (ELIQUIS) 5 Mg Tab, 5 MG PO BID, TAB 08/24/24 Atorvastatin Calcium (ATORVASTATIN CALCIUM) 20 Mg Tab, 1 TAB PO DAILY, #30 TAB 5 Refills 08/24/24 Spironolactone (Spironolactone) 25 Mg Tab, 1 TAB PO DAILY, #90 TAB 1 Refill 08/24/24 Amoxicillin & Pot Clavulanate (AUGMENTIN TABLET) 875 Mg Tb, 1000 MG PO Q12HR, TAB 08/24/24 Carvedilol (Carvedilol) 3.125 Mg Tab, 3.125 MG PO BID for 30 Days, MG 08/24/24 Pantoprazole Sodium Sesquihydr (Protonix) 40 Mg Tab, 40 MG PO DAILY, #30 TAB 08/24/24 Glipizide (Glipizide) 5 Mg Tab, 5 MG PO QAM for 30 Days, MG 08/24/24 Aspirin (Aspir-Low) 81 Mg Tab, 81 MG PO DAILY for 30 Days, MG 08/24/24 Sacubitril-Valsartan (Entresto 24-26 mg) 1 Tab Tab, 1 TAB PO BID, TAB 08/24/24 Amlodipine Besylate (NORVASC TABLET) 5 Mg Tb, 1 TAB PO DAILY, #30 TAB 5 Refills 08/24/24 Current Medications Current Medications Medications (Trade) Dose Ordered Sig/Rosana Route PRN Reason Start Time Stop Time Status Last Admin Piperacillin Sod/ Tazobactam Sod 100 ml @ 25 mls/hr Q8HR IV 08/23/24 22:00 08/23/24 19:50 DC Amlodipine Besylate (Norvasc Tablet) 5 mg DAILY PO 08/24/24 10:00 Pantoprazole Sodium (Protonix) 40 mg DAILY IV 08/24/24 10:00 08/24/24 13:51 DC 08/24/24 09:49 Diagnostic Test (Pha) (Accu-Chek Comfort Curve T) 1 strip ACHS 08/23/24 22:00 08/24/24 17:06 Insulin Human Regular (InsuLIN R) ACHS SC 08/23/24 22:00 08/24/24 17:05 Enoxaparin Sodium (Lovenox) 40 mg DAILY SC 08/24/24 10:00 Piperacillin Sod/ Tazobactam Sod 100 ml @ 25 mls/hr Q8HR IV 08/24/24 06:00 08/24/24 14:14 Ibuprofen (Motrin Tablet) 600 mg Q6HP PRN PO PAIN SCALE 1-3 OR TEMP>100.4 08/23/24 20:00 08/24/24 13:51 DC Vancomycin HCl 250 ml @ 250 mls/hr Q1H IV 08/23/24 21:45 08/23/24 23:44 DC 08/24/24 02:00 Vancomycin HCl 250 ml @ 200 mls/hr Q8H IV 08/24/24 12:00 08/24/24 12:16 Acetaminophen (Tylenol Tablet) 650 mg Q8HR PO 08/24/24 14:00 Ibuprofen (Motrin Tablet) 400 mg Q8HR PO 08/24/24 14:00 Morphine Sulfate 4 mg Q6HPRN PRN IV SEVERE PAIN (7-10 PAIN SCALE) 08/24/24 14:00 Pantoprazole Sodium (Protonix Tablet) 40 mg DAILY@0600 PO 08/25/24 06:00 Vital Signs Vital Signs Date Time Temp Pulse Resp B/P (MAP) Pulse Ox O2 Delivery O2 Flow Rate FiO2 08/24/24 19:00 76 24 128/62 (84) 98 08/24/24 18:00 Room Air* 0 21 08/24/24 16:00 97.5 97.5 Physical Exam Gen.: Patient lying in bed in no apparent distress. Breathing on room air. Head: Normocephalic, atraumatic. Eyes: EOMI/PERRLA. Ears: Normal hearing. Normal anatomy. Neck/trachea: Trachea midline, supple. Nose: Normal external anatomy. Mouth: Moist mucous membranes. Chest: Decreased air entry bilaterally. No wheezing or rhonchi. Cardiovascular: Positive S1, positive S2. Regular rate and rhythm. Abdomen: Positive bowel sounds in all 4 quadrants. Soft, non-tender, non-diste nded. : Deferred. Rectal: Deferred. Skin: Warm, dry. Intact. Extremities: 2+ radial pulses bilaterally. No lower extremity edema. S/p left BKA. Neuro: Awake, alert, oriented x3. No gross motor or sensory deficits. Cranial nerves II through XII intact. Gait not assessed. Labs/Diagnostic Data Labs Test 08/24/24 16:59 08/24/24 10:07 08/24/24 03:11 08/23/24 23:11 Range/Units POC Glucose 264 H 70-106 mg/dl White Blood Count 13.7 H 4.4-10.8 10^3/uL Hemoglobin 10.7 L 13.5-17.5 g/dL Hematocrit 33.1 L 41.0-53.0 % Platelet Count 403 140-450 10^3/uL Prothrombin Time 15.6 H 9.3-11.8 sec Prothrombin Time INR 1.54 H 0.9-1.15 Activated Partial Thromboplast Time 37.7 H 24.5-34.5 SEC Red Blood Count 3.48 L 4.5-5.90 10^6/uL Mean Corpuscular Volume 88.9 # 80.0-100.0 fL Mean Corpuscular Hemoglobin 29.7 28.0-32.0 pg Mean Corpuscular Hemoglobin Concent 33.4 32.0-36.0 g/dL Red Cell Distribution Width 15.2 H 11.8-14.3 % Mean Platelet Volume 7.1 6.9-10.8 fL Neutrophils (%) (Auto) 95.5 H 37.0-80.0 % Lymphocytes (%) (Auto) 2.4 L 10.0-50.0 % Monocytes (%) (Auto) 1.6 0.0-12.0 % Eosinophils (%) (Auto) 0.3 0.0-7.0 % Basophils (%) (Auto) 0.2 0.0-2.0 % Neutrophils # (Auto) 18.2 H 1.6-8.6 10 ^3/uL Lymphocytes # (Auto) 0.5 0.4-5.4 10 ^3/uL Monocytes # (Auto) 0.3 0-1.3 10 ^3/uL Eosinophils # (Auto) 0.1 0-0.8 10 ^3/uL Basophils # (Auto) 0 0-0.2 10 ^3/uL Nucleated Red Blood Cells 0.0 % Sodium Level 129 L 136-145 mmol/L Potassium Level 4.8 3.5-5.1 mmol/L Chloride Level 107 98-107 mmol/L Carbon Dioxide Level 14 L 20-31 mmol/L Anion Gap 8 5-15 Blood Urea Nitrogen 17 9-23 mg/dL Creatinine 1.04 0.700-1.30 mg/dL Glomerular Filtration Rate Calc 85 >90 mL/min BUN/Creatinine Ratio 16.3 10.0-20.0 Serum Glucose 168 H 74-106 mg/dL Calcium Level 8.3 L 8.7-10.4 mg/dL Total Bilirubin 0.8 0.2-1.0 mg/dL Aspartate Amino Transferase (AST) 207 H 13-40 U/L Alanine Aminotransferase (ALT) 166 H 7-40 U/L Alkaline Phosphatase 159 H 46-116 U/L Lactate Dehydrogenase 264 H 120-246 U/L Total Protein 5.7 5.7-8.2 g/dL Albumin 2.7 L 3.2-4.8 g/dL Hemoglobin A1c 7.8 H <5.7 % A1C Test 08/23/24 14:46 08/23/24 12:57 08/23/24 12:37 Range/Units Lactic Acid Level 1.3 0.4-2.0 mmol/L Erythrocyte Sedimentation Rate 76 H 0-20 mm/hr Troponin I High Sensitivity 10 </=54 ng/L C-Reactive Protein High Sensitivity > 20.00 H <1.0 mg/dL B-Type Natriuretic Peptide 368.21 0-100 pg/mL Urine Color Yellow Yellow Urine Clarity Clear Clear Urine pH 5.0 5.0-9.0 Urine Specific [place] 1.019 1.001-1.035 Urine Protein 1+ H Negative Urine Ketones Trace Negative Urine Blood 1+ H Negative /uL Urine Nitrite Negative Negative Urine Bilirubin Negative Negative Urine Urobilinogen Normal Negative mg/dL Urine Leukocyte Esterase Negative Negative /uL Urine RBC 2 0 - 3 /hpf Urine Microscopic WBC 2 0-3 /HPF Urine Squamous Epithelial Cells None seen <5 /hpf Urine Bacteria None seen None Seen /hpf Urine Glucose 4+ H Normal mg/dL Microbiology Date/Time Source Procedure Growth Status 08/23/24 22:30 Nose MRSA Screen - Final Complete 08/23/24 13:06 Blood Blood Culture - Preliminary Resulted Assessment Impression: Necrotizing fasciitis Obesity, BMI 37.5 Leukocytosis Anemia Hyponatremia DM type II S/p left below-knee amputation Septic shock Plan: Supplemental oxygen PRN Titrate to keep O2 sats above 92%. Continue antibiotics Pain control Avoid oversedation Accu-Cheks, ISS. Monitor hemoglobin Monitor WBC Monitor renal function. Monitor electrolytes. Supplement as necessary. Monitor sodium d/t hyponatremia Monitor ins and outs. Diet and lifestyle modifications for weight reduction Obesity - complicates all care DVT prophylaxis - Lovenox GI prophylaxis - Protonix Prognosis: Poor given patient's multiple co-morbidities. Rest of plan per hospitalist and other consultants. Thank you, FABIANA Alcala, for allowing me to participate in this patient's care. Further recommendations will depend on the patient's clinical course. Please do not hesitate to contact me if you have any questions or concerns. This medical document was created using an electronic medical record system with [employer] dictation system. Although these documentations are being carefully reviewed, there may still be some phonetic and typographical changes. The errors are purely typographical, due to imperfection on the software program, and do not reflect any compromise in the patient's medical care. Plan discussed with: Patient, Other (MOIZ Keane/FABIANA Alcala/) JAMILAH RODARTE MD Aug 24, 2024 20:02
[2024-08-25] VITALS (50 sets, daily range): BP systolic 113–153; BP diastolic 48–114; PULSE 69–90; RESP 14–28; TEMP 97.4–99.1; O2SAT 94–100
[2024-08-25 04:00] LABS: Basophils # (auto) 0 10 ^3/uL (0-0.2); Basophils % (auto) 0.1 % (0.0-2.0); Eosinophils # (auto) 0 10 ^3/uL (0-0.8); Hematocrit 30.5 % (41.0-53.0); Hemoglobin 10.2 g/dL (13.5-17.5); Lymphocytes # (auto) 0.7 10 ^3/uL (0.4-5.4); Lymphocytes % (auto) 3.9 % (10.0-50.0); Mean Corpuscular Hemoglobin 28.6 pg (28.0-32.0); Mean Corpuscular Hgb Conc. 33.4 g/dL (32.0-36.0); Mean Corpuscular Volume 85.6 fL (80.0-100.0); Monocytes # (auto) 0.7 10 ^3/uL (0-1.3); Monocytes % (auto) 4.2 % (0.0-12.0); Neutrophils # (auto) 15.6 10 ^3/uL (1.6-8.6); Neutrophils % (auto) 91.8 % (37.0-80.0); Platelet Count (auto) 445 10^3/uL (140-450); Red Blood Cells 3.56 10^6/uL (4.5-5.90); Red Cell Distribution Width 15.1 % (11.8-14.3)
[2024-08-25 04:20] LABS: Chloride 104 mmol/L (98-107); Potassium 4.6 mmol/L (3.5-5.1)
[2024-08-25 04:26] LABS: BUN/Creatinine Ratio 30.9 (10.0-20.0)
[2024-08-25 04:28] LABS: Phosphorus 3.9 mg/dL (2.4-5.1)
[2024-08-25 04:30] LABS: Blood Urea Nitrogen 34 mg/dL (9-23); Calcium 8.2 mg/dL (8.7-10.4); Glucose 290 mg/dL (74-106); Sodium 133 mmol/L (136-145)
[2024-08-25 04:36] LABS: Anion Gap 12 (5-15)
[2024-08-25 04:40] LABS: Carbon Dioxide 17 mmol/L (20-31)
[2024-08-25] MEDS: PANTOPRAZOLE 40 MG TAB PO SCH (06:12)
--- NOTE | 2024-08-25 09:23 | DVHPN2 ---
Assessment/Plan Assessment/Plan ICU note 53 yo M with IDDM admitted for nec fasc Seen by me today, s/p guilotine R BKA POD2. discussed with surgery will need revision in upcoming day. stable to transfer to [facility] Physical exam Alert oriented x3 clear breath sounds s1 s2 rrr abdomen soft s/p L BKA Labs EKG imaging reviewed cultures pending Assessment and plan necrotizing fasciitis s/p L BKA septic shock hyperK improved transaminitis c/w vanc and zosyn resume home meds pain management iv ressucitation follow echo pt when bleeding stops transfer to telemetry keep glucose between 150-200 keep K 4, Ph 3, Mg 2 lines castro diet cardiac dvt ppx hold gi ppx protonix code status full code goals of care curative Plan discussed with: Patient My Orders Orders - BELLE VANEGAS MD Procedure Category Date Status Time Acetaminophen Tablet PHA 08/24/24 In Process (Tylenol Tablet) 14:00 Ibuprofen Tablet PHA 08/24/24 In Process (Motrin Tablet) 14:00 Morphine Sulfate PHA 08/24/24 In Process Injection 14:00 Pantoprazole Tablet PHA 08/25/24 In Process (Protonix Tablet) 06:00 Date of Service: Aug 25, 2024 Billing Provider: BELLE VANEGAS MD Common Visit Codes: [id number] INP/OBS CARE(HIGH) BELLE VANEGAS MD Aug 25, 2024 09:23
[2024-08-25] MEDS: INSULIN LANTUS (GLARGINE) 1 /0.01ml (100units/ml) SC SCH (09:55)
--- NOTE | 2024-08-25 10:05 | DVHPN2 ---
Progress Note - Dictate Date Seen: Aug 25, 2024 Medical Necessity Reason Pt with a Central, PICC or Fol: No Subjective E: no major events o/n. no complaints. vital signs Vital Sign Date Time Temp Pulse Resp B/P (MAP) Pulse Ox O2 Delivery O2 Flow Rate FiO2 08/25/24 09:58 141/74 08/25/24 09:00 75 27 98 08/25/24 08:00 Room Air* 0 21 08/25/24 08:00 97.8 97.8 Total Intake and Output 08/24/24 08/24/24 08/25/24 15:00 23:00 07:00 Intake Total 1365 ml 1885 ml 2135 ml Output Total 1450 ml 1000 ml Balance 1365 ml 435 ml 1135 ml medications Current Medications Medications Dose Ordered Sig/Rosana Route Start Time Stop Time Status Last Admin Dose Admin Vancomycin HCl 0 ml @ 0 mls/hr UD IV 08/23/24 19:15 Amlodipine Besylate 5 mg DAILY PO 08/24/24 10:00 08/25/24 09:58 5 MG Diagnostic Test (Pha) 1 strip ACHS 08/23/24 22:00 08/25/24 06:57 1 STRIP Insulin Human Regular ACHS SC 08/23/24 22:00 08/25/24 07:03 4 UNITS Dextrose 50 ml UD PRN IV 08/23/24 19:15 Sodium Chloride 1,000 ml @ 120 mls/hr Q8H20M IV 08/23/24 19:15 08/24/24 12:08 120 MLS/HR Acetaminophen/ Hydrocodone Bitart 1 tab Q4HP PRN PO 08/23/24 19:15 Piperacillin Sod/ Tazobactam Sod 100 ml @ 25 mls/hr Q8HR IV 08/24/24 06:00 08/25/24 06:12 25 MLS/HR Vancomycin HCl 250 ml @ 200 mls/hr Q8H IV 08/24/24 12:00 08/25/24 04:18 200 MLS/HR Acetaminophen 650 mg Q8HR PO 08/24/24 14:00 Ibuprofen 400 mg Q8HR PO 08/24/24 14:00 Morphine Sulfate 4 mg Q6HPRN PRN IV 08/24/24 14:00 Pantoprazole Sodium 40 mg DAILY@0600 PO 08/25/24 06:00 08/25/24 06:12 40 MG Insulin Glargine 12 units DAILY@1000 SC 08/25/24 10:00 08/25/24 09:55 12 UNITS objective GEN: NAD. alert. LEFT LOWER LEG: open wound moist. min drainage. improved edema. laboratory and microbiology Laboratory Tests 08/25/24 03:32 Test 08/25/24 03:32 Range/Units Serum Glucose 290 #H 74-106 mg/dL Assessment/Plan A: 1. s/p left below knee guillotine amputation POD #2 P: 1. cont local wound care 2. BKA revision once infection clears Plan discussed with: Patient, Spouse, Son TEX FREGUSONGianfranco Wolf MD Aug 25, 2024 10:04
[2024-08-26] VITALS (7 sets, daily range): BP systolic 138–155; BP diastolic 72–84; PULSE 66–80; RESP 16–19; TEMP 97–98.2; O2SAT 96–99
[2024-08-26 07:30] LABS: Basophils # (auto) 0 10 ^3/uL (0-0.2); Basophils % (auto) 0.2 % (0.0-2.0); Eosinophils # (auto) 0 10 ^3/uL (0-0.8); Eosinophils % (auto) 0.5 % (0.0-7.0); Hematocrit 27.6 % (41.0-53.0); Hemoglobin 9.2 g/dL (13.5-17.5); Lymphocytes # (auto) 1.2 10 ^3/uL (0.4-5.4); Lymphocytes % (auto) 12.5 % (10.0-50.0); Mean Corpuscular Hemoglobin 28.1 pg (28.0-32.0); Mean Corpuscular Hgb Conc. 33.3 g/dL (32.0-36.0); Mean Corpuscular Volume 84.2 fL (80.0-100.0); Monocytes # (auto) 0.6 10 ^3/uL (0-1.3); Monocytes % (auto) 6.8 % (0.0-12.0); Neutrophils # (auto) 7.5 10 ^3/uL (1.6-8.6); Platelet Count (auto) 430 10^3/uL (140-450); Red Blood Cells 3.28 10^6/uL (4.5-5.90); White Blood Cell 9.3 10^3/uL (4.4-10.8)
[2024-08-26 07:36] LABS: Chloride 105 mmol/L (98-107); Potassium 4.7 mmol/L (3.5-5.1)
[2024-08-26 07:37] LABS: Anion Gap 9 (5-15); Carbon Dioxide 21 mmol/L (20-31)
[2024-08-26 07:39] LABS: Calcium 8.4 mg/dL (8.7-10.4); Sodium 135 mmol/L (136-145)
[2024-08-26 07:44] LABS: Blood Urea Nitrogen 24 mg/dL (9-23); Glucose 205 mg/dL (74-106)
--- NOTE | 2024-08-26 09:24 | DVHPN2 ---
Subjective Date Seen: Aug 26, 2024 Post op day Post op day: 2 Patient reports: No new complaints Nursing reports: No new complaints General: Normal HNT: Normal Cardiovascular: Normal Respiratory: Normal Gastrointestinal: Normal Genitourinary: Normal Musculoskeletal: Normal Neurological: Normal Objective Vitals Vital Sign Date Time Temp Pulse Resp B/P (MAP) Pulse Ox O2 Delivery O2 Flow Rate FiO2 08/26/24 05:00 97.6 78 18 153/84 (107) 98 97.6 08/25/24 20:00 Room Air* 0 21 Total Intake and Output 08/25/24 08/25/24 08/26/24 14:59 22:59 06:59 Intake Total 940 ml 1180 ml 400 ml Output Total 2300 ml 1000 ml Balance 940 ml -1120 ml -600 ml Medications Current Medications Medications Dose Ordered Sig/Rosana Route Start Time Stop Time Status Last Admin Dose Admin Vancomycin HCl 0 ml @ 0 mls/hr UD IV 08/23/24 19:15 Amlodipine Besylate 5 mg DAILY PO 08/24/24 10:00 08/25/24 09:58 5 MG Diagnostic Test (Pha) 1 strip ACHS 08/23/24 22:00 08/26/24 06:06 1 STRIP Insulin Human Regular ACHS SC 08/23/24 22:00 08/26/24 06:06 4 UNITS Dextrose 50 ml UD PRN IV 08/23/24 19:15 Sodium Chloride 1,000 ml @ 120 mls/hr Q8H20M IV 08/23/24 19:15 08/26/24 05:35 120 MLS/HR Acetaminophen/ Hydrocodone Bitart 1 tab Q4HP PRN PO 08/23/24 19:15 Piperacillin Sod/ Tazobactam Sod 100 ml @ 25 mls/hr Q8HR IV 08/24/24 06:00 08/26/24 05:45 25 MLS/HR Acetaminophen 650 mg Q8HR PO 08/24/24 14:00 08/26/24 05:36 650 MG Ibuprofen 400 mg Q8HR PO 08/24/24 14:00 08/26/24 05:35 400 MG Morphine Sulfate 4 mg Q6HPRN PRN IV 08/24/24 14:00 Pantoprazole Sodium 40 mg DAILY@0600 PO 08/25/24 06:00 08/26/24 05:35 40 MG Insulin Glargine 12 units DAILY@1000 SC 08/25/24 10:00 08/25/24 09:55 12 UNITS General: Normal, Well developed Head/Eyes: Normal Neck: Normal Cardiovascular: Normal Abdominal: Normal, Soft Musculoskeletal: Normal Extremities: Other (L BKA) Neurological: Normal Labs and Microbiology Laboratory Tests 08/26/24 06:40 Test 08/26/24 06:40 Range/Units Serum Glucose 205 H 74-106 mg/dL Ass/Plan Problems(with codes): (1) Left leg cellulitis Assessment/Plan 1. s/p left below knee guillotine amputation POD #3 P: 1. continue with wound care to Left leg 2. BKA revision once infection clears Prognosis: Good Plan discussed with patiuent, patient family bedside, Dr. Foreman Visit Coding Surgery Date of Service if different f: Aug 26, 2024 Billing Provider: NILE FOREMAN MD Surgery Visit Codes: [id number] INP/OBS CARE(HIGH) ESTEBAN [facility]GUIN [facility] Aug 26, 2024 09:24
--- NOTE | 2024-08-26 10:38 | DVHPN2 ---
Assessment/Plan Assessment/Plan ICU note 53 yo M with IDDM, HFrEF 40%, admitted for nec fasc, seen by surgery, s/p R tawana ESPINOZA 08/23. Also had sepsis on admission, on vanc and zosyn. Seen by me today, s/p guilotine R BKA POD3, will need revision once infection improved. tighter glucose control. resuming home meds. Physical exam Alert oriented x3 clear breath sounds s1 s2 rrr abdomen soft s/p L BKA Labs EKG imaging reviewed cultures pending Assessment and plan necrotizing fasciitis s/p L BKA septic shock hyperK improved transaminitis IDDM chronic systolic heart failure HFrEF 40% c/w vanc and zosyn resume home meds pain management iv ressucitation follow echo pt when bleeding stops transfer to telemetry resume GDMT basal bolus insulin + ISS lines castro diet cardiac dvt ppx hold code status full code goals of care curative Plan discussed with: Patient My Orders Orders - BELLE VANEGAS MD Procedure Category Date Status Time Carvedilol Tablet PHA 08/26/24 Transmitted (Coreg Tablet) 22:00 Carvedilol Tablet PHA 08/26/24 Transmitted (Coreg Tablet) 10:45 Sacubitril-Valsartan PHA 08/26/24 Transmitted (Entresto 24-26 Mg 22:00 Empagliflozin PHA 08/27/24 Transmitted (Jardiance) 10:00 Insulin Lantus PHA 08/27/24 Transmitted (Glargine) (Lantus) 10:00 Insulin Lispro PHA 08/26/24 Transmitted (Human) (Humalog) 11:30 Date of Service: Aug 26, 2024 Billing Provider: BELLE VANEGAS MD Common Visit Codes: [id number] INP/OBS CARE(HIGH) BELLE VANEGAS MD Aug 26, 2024 10:38
--- NOTE | 2024-08-26 11:21 | DVH ---
CHEST RADIOGRAPH Indication: crackles Technique: Single frontal view of the chest was obtained COMPARISON: None FINDINGS: Lines and Tubes: None Lungs: Increased interstitial prominence Pleura: No effusion. No pneumothorax. Cardiomediastinal contours: Cardiomegaly Bones: Unremarkable IMPRESSION: Pulmonary vascular congestion
[2024-08-26] MEDS: SACUBITRIL-VALSARTAN 24mg/26mg TAB PO SCH (11:33)
[2024-08-26] MEDS: CARVEDILOL 3.125 MG TAB PO ONE (11:33)
[2024-08-26] MEDS: EMPAGLIFLOZIN 10 MG TAB PO SCH (11:34)
[2024-08-26] MEDS: INSULIN LISPRO (HUMAN) 100 UNITS/ML ML SC SCH (12:09)
[2024-08-26] MEDS: VANCOMYCIN 1GM/250ML KIT 250 ML IV SCH (20:57)
[2024-08-26] MEDS: CARVEDILOL 3.125 MG TAB PO SCH (22:04)
[2024-08-27] VITALS (8 sets, daily range): BP systolic 140–168; BP diastolic 72–87; PULSE 61–72; RESP 16–19; TEMP 97.5–98.2; O2SAT 98–99
[2024-08-27 07:09] LABS: Basophils # (auto) 0 10 ^3/uL (0-0.2); Basophils % (auto) 0.2 % (0.0-2.0); Eosinophils # (auto) 0.2 10 ^3/uL (0-0.8); Eosinophils % (auto) 2.2 % (0.0-7.0); Hematocrit 29.9 % (41.0-53.0); Hemoglobin 9.9 g/dL (13.5-17.5); Lymphocytes # (auto) 1.6 10 ^3/uL (0.4-5.4); Lymphocytes % (auto) 22.5 % (10.0-50.0); Mean Corpuscular Hgb Conc. 33.1 g/dL (32.0-36.0); Mean Corpuscular Volume 84.8 fL (80.0-100.0); Monocytes # (auto) 0.6 10 ^3/uL (0-1.3); Neutrophils # (auto) 4.8 10 ^3/uL (1.6-8.6); Neutrophils % (auto) 67.1 % (37.0-80.0); Platelet Count (auto) 447 10^3/uL (140-450); Red Blood Cells 3.53 10^6/uL (4.5-5.90); Red Cell Distribution Width 14.8 % (11.8-14.3); White Blood Cell 7.1 10^3/uL (4.4-10.8)
[2024-08-27 07:15] LABS: Calcium 8.8 mg/dL (8.7-10.4); Chloride 103 mmol/L (98-107); Potassium 4.8 mmol/L (3.5-5.1)
[2024-08-27 07:16] LABS: Anion Gap 9 (5-15); Carbon Dioxide 21 mmol/L (20-31)
[2024-08-27 07:19] LABS: Sodium 133 mmol/L (136-145)
[2024-08-27 07:22] LABS: BUN/Creatinine Ratio 20.8 (10.0-20.0); Blood Urea Nitrogen 16 mg/dL (9-23)
[2024-08-27 07:23] LABS: Glucose 148 mg/dL (74-106)
--- NOTE | 2024-08-27 09:25 | DVHPN2 ---
Assessment/Plan Assessment/Plan Progress note 53 yo M with IDDM, HFrEF 40%, admitted for nec fasc, seen by surgery, s/p R tawana BKA 08/23. Also had sepsis on admission, on vanc and zosyn. Seen by me today, s/p guilotine R BKA POD4, will need revision once infection improved. tighter glucose control. Physical exam Alert oriented x3 clear breath sounds s1 s2 rrr abdomen soft s/p L BKA Labs EKG imaging reviewed cultures ecoli on bcx and wound, pending anaerobes Assessment and plan necrotizing fasciitis s/p L BKA septic shock resolved hyperK resolved transaminitis IDDM chronic systolic heart failure HFrEF 40% HTN ecoli bacteremia c/w zosyn, if culture finalized, can switch to ceftriaxone d/c vanc resume home meds pain management iv resuscitation follow echo pt when bleeding stops transfer to telemetry resume GDMT basal bolus insulin + ISS restart AC if surgery okays lines castro diet cardiac dvt ppx hold code status full code goals of care curative Plan discussed with: Patient, Son My Orders Orders - BELLE VANEGAS MD Procedure Category Date Status Time Sacubitril-Valsartan PHA 08/26/24 In Process (Entresto 24-26 Mg 10:53 Insulin Lantus PHA 08/27/24 In Process (Glargine) (Lantus) 10:00 Insulin Lispro PHA 08/26/24 In Process (Human) (Humalog) 11:30 Chest Portable XY 08/26/24 Resulted 10:35 Empagliflozin PHA 08/26/24 In Process (Jardiance) 10:53 Electrocardigram EKG 08/26/24 Logged 15:20 Carvedilol Tablet PHA 08/27/24 Logged (Coreg Tablet) 10:00 Basic Metabolic Panel LAB 08/28/24 Verified 04:00 Complete Blood Count LAB 08/28/24 Verified 04:00 Electrocardigram EKG 08/27/24 Logged 09:18 Date of Service: Aug 27, 2024 Billing Provider: BELLE VANEGAS MD Common Visit Codes: [id number] INP/OBS CARE(HIGH) BELLE VANEGAS MD Aug 27, 2024 09:25
[2024-08-27] MEDS: CARVEDILOL 3.125 MG TAB PO SCH (10:31)
[2024-08-27] MEDS: INSULIN LANTUS (GLARGINE) 1 /0.01ml (100units/ml) SC SCH (10:48)
[2024-08-27] MEDS: ENOXAPARIN SOD 100 MG/1 ML SYRINGE SC ONE (12:24)
[2024-08-27] MEDS: PIPERACILLIN-TAZO 4.5GM 100 ML IV SCH (20:25)
[2024-08-27] MEDS: ENOXAPARIN SOD 100 MG/1 ML SYRINGE SC SCH (21:01)
[2024-08-28] VITALS (8 sets, daily range): BP systolic 125–158; BP diastolic 60–81; PULSE 60–76; RESP 17–19; TEMP 97.5–98; O2SAT 96–99
[2024-08-28] MEDS: PIPERACILLIN-TAZO 4.5GM 100 ML IV SCH (04:26)
[2024-08-28 07:16] LABS: Basophils # (auto) 0 10 ^3/uL (0-0.2); Basophils % (auto) 0.3 % (0.0-2.0); Eosinophils # (auto) 0.2 10 ^3/uL (0-0.8); Eosinophils % (auto) 3.1 % (0.0-7.0); Hematocrit 29.7 % (41.0-53.0); Hemoglobin 9.8 g/dL (13.5-17.5); Lymphocytes % (auto) 26.7 % (10.0-50.0); Mean Corpuscular Hgb Conc. 33.1 g/dL (32.0-36.0); Mean Corpuscular Volume 84.6 fL (80.0-100.0); Monocytes # (auto) 0.6 10 ^3/uL (0-1.3); Monocytes % (auto) 7.5 % (0.0-12.0); Neutrophils # (auto) 4.7 10 ^3/uL (1.6-8.6); Neutrophils % (auto) 62.4 % (37.0-80.0); Nucleated Red Blood Cells % 0.1 %; Platelet Count (auto) 434 10^3/uL (140-450); Red Blood Cells 3.52 10^6/uL (4.5-5.90); Red Cell Distribution Width 14.7 % (11.8-14.3); White Blood Cell 7.5 10^3/uL (4.4-10.8)
[2024-08-28 07:25] LABS: Anion Gap 9 (5-15); Carbon Dioxide 23 mmol/L (20-31); Chloride 102 mmol/L (98-107); Potassium 4.4 mmol/L (3.5-5.1)
[2024-08-28 07:26] LABS: Calcium 8.8 mg/dL (8.7-10.4)
[2024-08-28 07:35] LABS: Glucose 121 mg/dL (74-106); Sodium 134 mmol/L (136-145)
[2024-08-28 08:04] LABS: Blood Urea Nitrogen 17 mg/dL (9-23)
--- NOTE | 2024-08-28 14:03 | DVHPN2 ---
Subjective Date Seen: Aug 28, 2024 Post op day Post op day: 5 Patient reports: No new complaints Nursing reports: No new complaints General: Normal HNT: Normal Cardiovascular: Normal Respiratory: Normal Gastrointestinal: Normal Genitourinary: Normal Musculoskeletal: Normal Neurological: Normal Objective Vitals Vital Sign Date Time Temp Pulse Resp B/P (MAP) Pulse Ox O2 Delivery O2 Flow Rate FiO2 08/28/24 12:00 65 118/78 08/28/24 09:30 97.7 18 99 97.7 08/27/24 20:00 Room Air* 0 21 Total Intake and Output 08/27/24 08/27/24 08/28/24 15:00 23:00 07:00 Intake Total 820 ml 1300 ml 530 ml Output Total 1500 ml 900 ml Balance 820 ml -200 ml -370 ml Medications Current Medications Medications Dose Ordered Sig/Rosana Route Start Time Stop Time Status Last Admin Dose Admin Diagnostic Test (Pha) 1 strip ACHS 08/23/24 22:00 08/28/24 11:24 1 STRIP Insulin Human Regular ACHS SC 08/23/24 22:00 08/28/24 11:34 3 UNITS Dextrose 50 ml UD PRN IV 08/23/24 19:15 Acetaminophen/ Hydrocodone Bitart 1 tab Q4HP PRN PO 08/23/24 19:15 Acetaminophen 650 mg Q8HR PO 08/24/24 14:00 08/28/24 05:19 650 MG Ibuprofen 400 mg Q8HR PO 08/24/24 14:00 08/28/24 05:19 400 MG Morphine Sulfate 4 mg Q6HPRN PRN IV 08/24/24 14:00 Pantoprazole Sodium 40 mg DAILY@0600 PO 08/25/24 06:00 08/28/24 05:19 40 MG Sacubitril/ Valsartan 1 tab BID PO 08/26/24 10:53 08/28/24 10:55 1 TAB Empaglifozin 10 mg DAILY PO 08/26/24 10:53 08/28/24 10:55 10 MG Insulin Glargine 15 units DAILY@1000 SC 08/27/24 10:00 08/28/24 11:22 15 UNITS Insulin Human Lispro 3 units AC SC 08/26/24 11:30 08/28/24 11:40 3 UNITS Carvedilol 6.25 mg Q12HR PO 08/27/24 10:00 08/28/24 10:55 6.25 MG Enoxaparin Sodium 120 mg Q12HR SC 08/27/24 22:00 08/28/24 10:00 120 MG Piperacillin Sod/ Tazobactam Sod 100 ml @ 200 mls/hr Q6H IV 08/28/24 04:30 08/28/24 10:59 200 MLS/HR General: Normal, Well developed Head/Eyes: Normal Neck: Normal Cardiovascular: Normal Abdominal: Normal, Soft, Normal inspection, Non tender Musculoskeletal: Normal Extremities: Other (Left below knee amputation) Neurological: Normal Labs and Microbiology Laboratory Tests 08/28/24 05:07 Test 08/28/24 05:07 Range/Units Serum Glucose 121 H 74-106 mg/dL Ass/Plan Labs and/or images reviewed: Labs reviewed by me Problems(with codes): (1) Below knee amputation (2) Necrotizing fasciitis (3) Left leg cellulitis Assessment/Plan 1. s/p left below knee guillotine amputation POD #3 P: 1. continue with wound care to Left leg 2. BKA revision once infection clears 08/28/2024 - s/p left below knee amputation POD#5 no complaints from patient resting comfortably in bed with family at bedside left leg stump necrotic tissue, no erythema , no drainage noted possible revision of left below the knee amputation with closure on monday Dr. Foreman will speak to patient and family tomorrow new dressings applied Prognosis: Good Plan discussed with patient, son , Dr. Foreman Visit Coding Surgery Date of Service if different f: Aug 28, 2024 Billing Provider: NILE FOREMAN MD Surgery Visit Codes: [id number] INP/OBS CARE(HIGH) ESTEBAN OLGUIN [facility] Aug 28, 2024 14:03
--- NOTE | 2024-08-28 20:49 | DVHPN2 ---
Assessment/Plan Assessment/Plan Progress note 53 yo M with IDDM, HFrEF 40%, admitted for nec fasc, seen by surgery, s/p R tawana ESPINOZA 08/23. Also had sepsis on admission, on vanc and zosyn. Seen by me today, s/p guilotine R BKA POD5, plan for revision monday Physical exam Alert oriented x3 clear breath sounds s1 s2 rrr abdomen soft s/p L BKA Labs EKG imaging reviewed cultures ecoli on bcx and wound new bcx NGTD Assessment and plan necrotizing fasciitis s/p L BKA septic shock resolved hyperK resolved transaminitis IDDM chronic systolic heart failure HFrEF 40% HTN ecoli bacteremia c/w ceftriaxone d/c vanc and zosyn resume home meds pain management iv resuscitation follow echo pt when bleeding stops transfer to telemetry resume GDMT basal bolus insulin + ISS full lovenox lines castro diet cardiac dvt ppx lovenox therapeutic code status full code goals of care curative Plan discussed with: Patient Date of Service: Aug 28, 2024 Billing Provider: BELLE VANEGAS MD Common Visit Codes: [id number] INP/OBS CARE(HIGH) BELLE VANEGAS MD Aug 28, 2024 20:49
[2024-08-28] MEDS: cefTRIAXone 1GM/50ML D5W 50 ML IV SCH (21:43)
[2024-08-29] VITALS (7 sets, daily range): BP systolic 139–155; BP diastolic 65–83; PULSE 63–75; RESP 15–19; TEMP 97.6–98.5; O2SAT 98–100
[2024-08-29 06:44] LABS: Chloride 106 mmol/L (98-107); Potassium 4.5 mmol/L (3.5-5.1)
[2024-08-29 06:45] LABS: Anion Gap 7 (5-15); Carbon Dioxide 21 mmol/L (20-31)
[2024-08-29 06:46] LABS: Calcium 8.6 mg/dL (8.7-10.4); Sodium 134 mmol/L (136-145)
[2024-08-29 06:51] LABS: Blood Urea Nitrogen 13 mg/dL (9-23)
[2024-08-29 06:55] LABS: Glucose 109 mg/dL (74-106)
[2024-08-29 06:57] LABS: Basophils # (auto) 0 10 ^3/uL (0-0.2); Basophils % (auto) 0.5 % (0.0-2.0); Eosinophils # (auto) 0.3 10 ^3/uL (0-0.8); Eosinophils % (auto) 2.6 % (0.0-7.0); Hematocrit 27.9 % (41.0-53.0); Hemoglobin 9.6 g/dL (13.5-17.5); Lymphocytes # (auto) 2.2 10 ^3/uL (0.4-5.4); Lymphocytes % (auto) 22.1 % (10.0-50.0); Mean Corpuscular Hemoglobin 29.7 pg (28.0-32.0); Mean Corpuscular Hgb Conc. 34.5 g/dL (32.0-36.0); Mean Corpuscular Volume 86.1 fL (80.0-100.0); Monocytes # (auto) 0.6 10 ^3/uL (0-1.3); Monocytes % (auto) 5.8 % (0.0-12.0); Neutrophils # (auto) 6.8 10 ^3/uL (1.6-8.6); Platelet Count (auto) 409 10^3/uL (140-450); Red Blood Cells 3.24 10^6/uL (4.5-5.90); Red Cell Distribution Width 14.6 % (11.8-14.3); White Blood Cell 9.8 10^3/uL (4.4-10.8)
--- NOTE | 2024-08-29 11:10 | DVHPN2 ---
Assessment/Plan Assessment/Plan Progress note 53 yo M with IDDM, HFrEF 40%, admitted for nec fasc, seen by surgery, s/p R tawana ESPINOZA 08/23. Also had sepsis on admission, on vanc and zosyn. Seen by me today, s/p guilotine R BKA POD6. hold AC for revision monday. NPO midnight, preop labs Physical exam Alert oriented x3 clear breath sounds s1 s2 rrr abdomen soft s/p L BKA Labs EKG imaging reviewed cultures ecoli on bcx and wound new bcx NGTD Assessment and plan necrotizing fasciitis s/p L BKA septic shock resolved hyperK resolved transaminitis IDDM chronic systolic heart failure HFrEF 40% HTN ecoli bacteremia hx of dvt on eliquis c/w ceftriaxone d/c vanc and zosyn resume home meds pain management iv resuscitation follow echo pt when bleeding stops transfer to telemetry resume GDMT basal bolus insulin + ISS full lovenox hold today lines castro diet cardiac dvt ppx lovenox therapeutic code status full code goals of care curative Plan discussed with: Patient My Orders Orders - BELLE VANEGAS MD Procedure Category Date Status Time Ceftriaxone 1gm/50ml PHA 08/28/24 In Process D5w (Rocephin) 20:52 Date of Service: Aug 29, 2024 Billing Provider: BELLE VANEGAS MD Common Visit Codes: [id number] INP/OBS CARE(HIGH) BELLE VANEGAS MD Aug 29, 2024 11:10
--- NOTE | 2024-08-29 12:29 | DVHPN2 ---
Progress Note Date Seen: Aug 29, 2024 Medical Necessity Reason Pt with a Central, PICC or Fol: No Objective vital signs Vital Sign Date Time Temp Pulse Resp B/P (MAP) Pulse Ox O2 Delivery O2 Flow Rate FiO2 08/29/24 12:14 98.1 64 19 139/65 (89) 99 98.1 08/28/24 20:00 Room Air* 0 21 Total Intake and Output 08/28/24 08/28/24 08/29/24 14:59 22:59 06:59 Intake Total 100 ml 550 ml Balance 100 ml 550 ml medications Current Medications Medications Dose Ordered Sig/Rosana Route Start Time Stop Time Status Last Admin Dose Admin Diagnostic Test (Pha) 1 strip ACHS 08/23/24 22:00 08/29/24 06:51 1 STRIP Insulin Human Regular ACHS SC 08/23/24 22:00 08/28/24 22:05 2 UNITS Dextrose 50 ml UD PRN IV 08/23/24 19:15 Acetaminophen/ Hydrocodone Bitart 1 tab Q4HP PRN PO 08/23/24 19:15 Acetaminophen 650 mg Q8HR PO 08/24/24 14:00 08/29/24 06:48 650 MG Ibuprofen 400 mg Q8HR PO 08/24/24 14:00 08/29/24 06:46 400 MG Morphine Sulfate 4 mg Q6HPRN PRN IV 08/24/24 14:00 Pantoprazole Sodium 40 mg DAILY@0600 PO 08/25/24 06:00 08/29/24 06:46 40 MG Sacubitril/ Valsartan 1 tab BID PO 08/26/24 10:53 08/29/24 09:58 1 TAB Empaglifozin 10 mg DAILY PO 08/26/24 10:53 08/29/24 09:57 10 MG Insulin Glargine 15 units DAILY@1000 SC 08/27/24 10:00 08/28/24 11:22 15 UNITS Insulin Human Lispro 3 units AC SC 08/26/24 11:30 08/28/24 17:49 3 UNITS Carvedilol 6.25 mg Q12HR PO 08/27/24 10:00 08/29/24 09:59 6.25 MG Ceftriaxone Sodium 50 ml @ 100 mls/hr DAILY@09 IV 08/28/24 20:52 08/29/24 09:57 100 MLS/HR laboratory and microbiology Laboratory Tests 08/29/24 06:10 Test 08/29/24 06:10 Range/Units Serum Glucose 109 H 74-106 mg/dL Problem List/Assessment/Plan Problem List/Assessment/Plan 08/29/24 wound without purulence,proximal lower leg non tender.explained attempt at revision BKA with fair chance for success, the stump may be too short for a prosthetic limb and if not healing will need to proceed with above the knee amputation, operation, risks and complications explained ,all questions answered Plan discussed with: Patient, Spouse, Son Dietary Evaluation Review Comments: 1. Suggest increasing CHO allotment to 75 gm/meal to meet higher caloric needs to support wound healing 2. Frequently monitor BG, insulin for correction; goal <180 mg/dl while inpatient 3. Continue to encourage good oral intake >75% of meals 4. Suggest addition of Ensure HP BID to support wound healing (provides 160 kcal, 16 gm pro, 19 gm CHO per carton) Expected Outcomes/Goals: Maintain skin integrity, support wound healing, weight maintenance. NILE AGUIAR MD Aug 29, 2024 12:29
[2024-08-29] MEDS: SOD CHL 0.45% 1,000 ML IV SCH (12:30)
[2024-08-29 14:00] LABS: INR 1.12 (0.9-1.15); Partial Thromboplastin Time 36.9 SEC (24.5-34.5); Prothrombin Time 11.7 sec (9.3-11.8)
[2024-08-30] VITALS (9 sets, daily range): BP systolic 137–177; BP diastolic 75–92; PULSE 65–78; RESP 16–18; TEMP 97.5–98; O2SAT 95–99
[2024-08-30] MEDS: hydrALAZINE HCL 20 MG/ML VL IV PRN (05:00)
[2024-08-30] MEDS ORDERED: HYDROmorphone HCL 2 MG/ML VL/or syr ONE (06:57)
[2024-08-30] MEDS ORDERED: PROPOFOL 10 MG/ML 20 ML IV ONE (06:57)
[2024-08-30] MEDS ORDERED: LIDOCAINE 1% INJ PF 5ML AMP ONE (06:57)
[2024-08-30] MEDS ORDERED: MIDAZOLAM HCL 2MG/2ML 2ml VIAL (1mg/ml) ONE (06:57)
[2024-08-30] MEDS ORDERED: ONDANSETRON HCL 4 MG/2 ML VIAL ONE (06:57)
[2024-08-30] MEDS ORDERED: fentaNYL CITRATE 100 MCG/2 ML VL ONE (06:57)
[2024-08-30] MEDS ORDERED: SODIUM CHLORIDE LOCK 10 ML ONE (06:57)
[2024-08-30] MEDS ORDERED: KETAMINE 50mg/ML 1ml syringe ONE (06:57)
[2024-08-30 07:01] LABS: Chloride 104 mmol/L (98-107); Potassium 4.2 mmol/L (3.5-5.1)
[2024-08-30 07:02] LABS: Anion Gap 8 (5-15); Carbon Dioxide 22 mmol/L (20-31)
[2024-08-30 07:03] LABS: Calcium 9.1 mg/dL (8.7-10.4); Sodium 134 mmol/L (136-145)
[2024-08-30 07:06] LABS: Basophils # (auto) 0 10 ^3/uL (0-0.2); Basophils % (auto) 0.4 % (0.0-2.0); Eosinophils # (auto) 0.2 10 ^3/uL (0-0.8); Eosinophils % (auto) 2.6 % (0.0-7.0); Hematocrit 31.4 % (41.0-53.0); Hemoglobin 10.5 g/dL (13.5-17.5); Lymphocytes # (auto) 1.4 10 ^3/uL (0.4-5.4); Mean Corpuscular Hgb Conc. 33.4 g/dL (32.0-36.0); Mean Corpuscular Volume 86.8 fL (80.0-100.0); Monocytes # (auto) 0.5 10 ^3/uL (0-1.3); Monocytes % (auto) 6.5 % (0.0-12.0); Neutrophils # (auto) 5.3 10 ^3/uL (1.6-8.6); Neutrophils % (auto) 71.5 % (37.0-80.0); Platelet Count (auto) 442 10^3/uL (140-450); Red Blood Cells 3.62 10^6/uL (4.5-5.90); Red Cell Distribution Width 14.7 % (11.8-14.3); White Blood Cell 7.4 10^3/uL (4.4-10.8)
[2024-08-30 07:07] LABS: INR 1.07 (0.9-1.15); Partial Thromboplastin Time 31.1 SEC (24.5-34.5); Prothrombin Time 11.3 sec (9.3-11.8)
[2024-08-30 07:08] LABS: BUN/Creatinine Ratio 21.7 (10.0-20.0); Blood Urea Nitrogen 15 mg/dL (9-23); Glucose 116 mg/dL (74-106); Magnesium 2.2 mg/dL (1.6-2.6)
[2024-08-30 07:10] LABS: Phosphorus 2.6 mg/dL (2.4-5.1)
[2024-08-30] MEDS ORDERED: fentaNYL CITRATE 100 MCG/2 ML VL IV PRN (07:30)
[2024-08-30] MEDS: METOCLOPRAMIDE HCL 5MG/ml INJ 2ml VIAL IV ONE (07:30)
[2024-08-30] MEDS ORDERED: HYDROmorphone HCL 2 MG/ML VL/or syr IV PRN (07:30)
[2024-08-30] MEDS ORDERED: MORPHINE SULFATE 4 MG/ML SYR/VIAL IV PRN (08:30)
[2024-08-30] MEDS ORDERED: MORPHINE SULFATE INJ 2 MG/ml SYRG IV PRN (08:30)
[2024-08-30] MEDS: ceFAZolin 2 GM/D5W100ml 100 ML IV ONE (09:15)
[2024-08-30] MEDS ORDERED: ceFAZolin 1GM VL ONE (09:27)
[2024-08-30] MEDS: HYDROmorphone HCL 2 MG/ML VL/or syr IV PRN (10:23)
[2024-08-30] MEDS: POVIDONE IODINE 10 % TOPICAL OINT 30GM TOP ONE (10:35)
--- NOTE | 2024-08-30 10:44 | DVHPN2 ---
Assessment/Plan Assessment/Plan Progress note 53 yo M with IDDM, HFrEF 40%, admitted for nec fasc, seen by surgery, s/p R guilotine BKA 08/23. Also had sepsis on admission, on vanc and zosyn. s/p guilotine R BKA POD7. revision today. restart full AC once OK by surgery. Physical exam Alert oriented x3 clear breath sounds s1 s2 rrr abdomen soft s/p L BKA Labs EKG imaging reviewed cultures ecoli on bcx and wound new bcx NGTD Assessment and plan necrotizing fasciitis s/p L BKA septic shock resolved hyperK resolved transaminitis IDDM chronic systolic heart failure HFrEF 40% HTN ecoli bacteremia hx of dvt on eliquis c/w ceftriaxone d/c vanc and zosyn resume home meds pain management iv resuscitation follow echo pt when bleeding stops transfer to telemetry resume GDMT basal bolus insulin + ISS full lovenox hold today lines castro diet cardiac dvt ppx lovenox therapeutic code status full code goals of care curative Plan discussed with: Patient My Orders Orders - BELLE VANEGAS MD Procedure Category Date Status Time Npo After Midnight ORDERS 08/29/24 Transmitted Npo (Nothing By DIET 08/30/24 Transmitted Mouth) Diet Breakfast Date of Service: Aug 30, 2024 Billing Provider: BELLE VANEGAS MD Common Visit Codes: [id number] INP/OBS CARE(HIGH) BELLE VANEGAS MD Aug 30, 2024 10:44
--- NOTE | 2024-08-30 10:58 | DVHOP ---
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 POSTOPERATIVE DIAGNOSIS: Revision of amputation. SURGEON: Gustavo Foreman MD. ANESTHESIA: General endotracheal. ANESTHESIOLOGIST: Dr. Haile. FRENCH BINDING FOLDER: Jarvis Healy. PROCEDURE: Revision of amputation of left lower extremity. INDICATIONS: The patient had a guillotine amputation performed by Dr. Amaya for septic foot, and following an expectant period of several days, the patient is now coming for revision and closure of the amputation. I explained to the patient and his family that the stump will result possibly in an inadequate stump for prosthesis and the family wishes to try, as they do not wish to have an haver-crn-rfws amputation. DESCRIPTION OF PROCEDURE: The patient was anesthetized to the stump of the left lower extremity with a protruding tibia and fibula. Leg was prepped and draped to upper thigh. Subsequently, a posteriorly-based flap was outlined with indelible ink pen and an incision was made following a timeout that was performed by the nursing personnel and surgical staff. The incision was deepened with electrocautery. The bones were dissected and transected with an oscillating saw. Vessels were individually ligated and divided. The popliteal nerve was placed on tension, severed by a scissor and allowed to retract. Following removal of the stump of the prior amputation from the field, the remaining left lower extremity was elevated and the operative site was irrigated with 1 liter of saline containing 2 grams of Ancef by pulse-lavage method. Following achievement of complete hemostasis, interrupted 0 Vicryl sutures were used for approximation of the fascia. Skin was approximated using metallic skin fady. The patient remained stable throughout the procedure, left the operating room following an accurate needle and sponge count. His son, Mukesh, was thoroughly informed in the waiting room. Gustavo Foreman MD PF/ARV TID: [id number] RECEIPT: [id number]
--- NOTE | 2024-08-30 11:27 | ECG ---
[facility] Test Date: 2024-08-30 Test Time: 00:49:18 Pat Name: ADAM LERNER GRIDER Department: Respiratoy Room: 0249 B Gender: M Folding Machine Operator: CHELA ROCKWELL : 1970 Requested By: BELLE VANEGAS Order Number: [id number] Reading MD: Raghu Atkinson Measurements Intervals [place] Rate: 72 P: 15 CT: 180 QRS: -24 QRSD: 174 T: 114 QT: 455 QTc: 499 Interpretive Statements Sinus rhythm Left bundle branch block Electronically Signed On 08-30-2024 11:55:10 PDT by Raghu Atkinson Please click the below link to view image of tracing.
[2024-08-30] MEDS: HYDROcodone-ACET 5/325MG TAB PO PRN (17:00)
[2024-08-31] VITALS (7 sets, daily range): BP systolic 143–176; BP diastolic 67–90; PULSE 68–87; RESP 17–19; TEMP 97.7–98; O2SAT 96–99
--- NOTE | 2024-08-31 11:02 | DVHPN2 ---
Progress Note Date Seen: Aug 31, 2024 Medical Necessity Reason Pt with a Central, PICC or Fol: No Objective vital signs Vital Sign Date Time Temp Pulse Resp B/P (MAP) Pulse Ox O2 Delivery O2 Flow Rate FiO2 08/31/24 09:10 75 176/90 08/31/24 08:30 Room Air* 0 21 08/31/24 07:03 98.2 08/31/24 05:00 17 97 Total Intake and Output 08/30/24 08/30/24 08/31/24 14:59 22:59 06:59 Intake Total 200 ml 400 ml 1000 ml Balance 200 ml 400 ml 1000 ml medications Current Medications Medications Dose Ordered Sig/Rosana Route Start Time Stop Time Status Last Admin Dose Admin Diagnostic Test (Pha) 1 strip ACHS 08/23/24 22:00 08/31/24 06:07 1 STRIP Insulin Human Regular ACHS SC 08/23/24 22:00 08/30/24 21:45 4 UNITS Dextrose 50 ml UD PRN IV 08/23/24 19:15 Acetaminophen/ Hydrocodone Bitart 1 tab Q4HP PRN PO 08/23/24 19:15 08/30/24 17:00 1 TAB Acetaminophen 650 mg Q8HR PO 08/24/24 14:00 08/31/24 06:03 650 MG Ibuprofen 400 mg Q8HR PO 08/24/24 14:00 08/31/24 06:02 400 MG Morphine Sulfate 4 mg Q6HPRN PRN IV 08/24/24 14:00 Pantoprazole Sodium 40 mg DAILY@0600 PO 08/25/24 06:00 08/31/24 06:03 40 MG Sacubitril/ Valsartan 1 tab BID PO 08/26/24 10:53 08/31/24 09:10 1 TAB Empaglifozin 10 mg DAILY PO 08/26/24 10:53 08/31/24 09:09 10 MG Insulin Glargine 15 units DAILY@1000 SC 08/27/24 10:00 08/31/24 09:10 15 UNITS Insulin Human Lispro 3 units AC SC 08/26/24 11:30 08/30/24 17:00 3 UNITS Carvedilol 6.25 mg Q12HR PO 08/27/24 10:00 08/31/24 09:10 6.25 MG Ceftriaxone Sodium 50 ml @ 100 mls/hr DAILY@09 IV 08/28/24 20:52 08/31/24 09:10 100 MLS/HR Sodium Chloride 1,000 ml @ 50 mls/hr Q20H IV 08/29/24 12:30 08/31/24 04:59 50 MLS/HR laboratory and microbiology Laboratory Tests 08/30/24 05:57 Test 08/30/24 05:57 Range/Units Serum Glucose 116 H 74-106 mg/dL Problem List/Assessment/Plan Problem List/Assessment/Plan 08/29/24 wound without purulence,proximal lower leg non tender.explained attempt at revision BKA with fair chance for success, the stump may be too short for a prosthetic limb and if not healing will need to proceed with above the knee amputation, operation, risks and complications explained ,all questions answered 08/31/24 dressing dry, good ROM left knee, instructed on active rom exercises. questions answered Plan discussed with: Patient, Spouse, Son, Other Dietary Evaluation Review Comments: 1. Suggest increasing CHO allotment to 75 gm/meal to meet higher caloric needs to support wound healing 2. Frequently monitor BG, insulin for correction; goal <180 mg/dl while inpatient 3. Continue to encourage good oral intake >75% of meals 4. Suggest addition of Ensure HP BID to support wound healing (provides 160 kcal, 16 gm pro, 19 gm CHO per carton) Expected Outcomes/Goals: Maintain skin integrity, support wound healing, weight maintenance. NILE AGUIAR MD Aug 31, 2024 11:02
--- NOTE | 2024-08-31 18:12 | DVHPN2 ---
Subjective 08/31 patient is postop day 1 revision, initial surgery on 08/23. Patient had left BKA for necrotizing fasciitis. Patient is appearing well, pain controlled with p.r.n. analgesia. Surgery following and wants to hold off full-dose anticoagulation which is needed for history of DVTs. We will continue PT evaluations. Reviewed: H&P Changes from previous H/P or p: No Changes General: Per HPI Eyes: No Pain, No Vision change, No Conjunctivae inflammation, No Eyelid inflammation, No Other, No Redness ENT: No Ear pain, No Ear discharge, No Nose pain, No Nose discharge, No Nose congestion, No Mouth pain, No Mouth swelling, No Throat pain, No Throat swelling, No Other Cardiovascular: No Chest Pain, No Palpitations, No Orthopnea, No Paroxysmal Noc. Dyspnea, No Edema, No Lt Headedness, No Other Respiratory: No Cough, No Dry, No Shortness of breath, No SOB with excertion, No Wheezing, No Hemoptysis, No Pleuritic Pain, No Sputum, No Other Gastrointestinal: No Nausea, No Vomiting, No Abdominal Pain, No Diarrhea, No Constipation, No Melena, No Hematochezia, No Other Genitourinary: No Dysuria, No Frequency, No Incontinence, No Hematuria, No Retention, No Other Musculoskeletal: other (Left foot swelling/redness); No neck pain, No shoulder pain, No arm pain, No back pain, No hand pain, No leg pain, No foot pain Skin: No Rash, No Lesions, No Jaundice, No Bruising; Other (Left foot diabetic ulcer) Objective Vitals Vital Signs Date Time Temp Pulse Resp B/P (MAP) Pulse Ox O2 Delivery O2 Flow Rate FiO2 08/31/24 17:00 97.9 71 18 143/70 (94) 98 97.9 08/31/24 08:30 Room Air* 0 21 Intake/Output Intake and Output 08/31/24 07:00 Intake Total 1600 ml Balance 1600 ml Intake Oral 400 ml IV Total 1200 ml # Voids 3 Exam Alert oriented x3 clear breath sounds s1 s2 rrr abdomen soft s/p L BKA Medications Current Medications Medications Dose Ordered Sig/Rosana Route Start Time Stop Time Status Last Admin Dose Admin Diagnostic Test (Pha) 1 strip ACHS 08/23/24 22:00 08/31/24 17:10 1 STRIP Insulin Human Regular ACHS SC 08/23/24 22:00 08/31/24 17:09 4 UNITS Dextrose 50 ml UD PRN IV 08/23/24 19:15 Acetaminophen/ Hydrocodone Bitart 1 tab Q4HP PRN PO 08/23/24 19:15 08/30/24 17:00 1 TAB Acetaminophen 650 mg Q8HR PO 08/24/24 14:00 08/31/24 13:38 650 MG Ibuprofen 400 mg Q8HR PO 08/24/24 14:00 08/31/24 13:38 400 MG Morphine Sulfate 4 mg Q6HPRN PRN IV 08/24/24 14:00 Pantoprazole Sodium 40 mg DAILY@0600 PO 08/25/24 06:00 08/31/24 06:03 40 MG Sacubitril/ Valsartan 1 tab BID PO 08/26/24 10:53 08/31/24 09:10 1 TAB Empaglifozin 10 mg DAILY PO 08/26/24 10:53 08/31/24 09:09 10 MG Insulin Glargine 15 units DAILY@1000 SC 08/27/24 10:00 08/31/24 09:10 15 UNITS Insulin Human Lispro 3 units AC SC 08/26/24 11:30 08/31/24 17:09 3 UNITS Carvedilol 6.25 mg Q12HR PO 08/27/24 10:00 08/31/24 09:10 6.25 MG Ceftriaxone Sodium 50 ml @ 100 mls/hr DAILY@09 IV 08/28/24 20:52 08/31/24 09:10 100 MLS/HR Sodium Chloride 1,000 ml @ 50 mls/hr Q20H IV 08/29/24 12:30 08/31/24 04:59 50 MLS/HR Laboratory Results Laboratory Tests 08/30/24 05:57 Urinalysis Test 08/23/24 12:37 Urine Color Yellow (Yellow) Urine Clarity Clear (Clear) Urine pH 5.0 (5.0-9.0) Urine Specific [place] 1.019 (1.001-1.035) Urine Protein 1+ (Negative) H Urine Ketones Trace (Negative) Urine Blood 1+ /uL (Negative) H Urine Nitrite Negative (Negative) Urine Bilirubin Negative (Negative) Urine Urobilinogen Normal mg/dL (Negative) Urine Leukocyte Esterase Negative /uL (Negative) Urine RBC 2 /hpf (0 - 3) Urine Microscopic WBC 2 /HPF (0-3) Urine Squamous Epithelial Cells None seen /hpf (<5) Urine Bacteria None seen /hpf (None Seen) Urine Glucose 4+ mg/dL (Normal) H Microbiology Microbiology Date/Time Source Procedure Growth Status 08/27/24 13:11 Blood Blood Culture - Preliminary NO GROWTH AFTER 72 HOURS OF INCUBATION. Resulted 08/23/24 22:30 Nose MRSA Screen - Final Complete Labs and/or images reviewed: Labs reviewed by me, Image(s) reviewed by me Assessment/Plan Assessment/Plan 08/31 patient is postop day 1 revision, initial surgery on 08/23. Patient had left BKA for necrotizing fasciitis. Patient is appearing well, pain controlled with p.r.n. analgesia. Surgery following and wants to hold off full-dose anticoagulation which is needed for history of DVTs. We will continue PT evaluations. necrotizing fasciitis s/p L BKA septic shock resolved hyperK resolved transaminitis IDDM chronic systolic heart failure HFrEF 40% HTN ecoli bacteremia hx of dvt on eliquis c/w ceftriaxone d/c vanc and zosyn resume home meds pain management iv resuscitation follow echo pt when bleeding stops transfer to telemetry resume GDMT basal bolus insulin + ISS full lovenox hold , we will continue prophylactic dose only PT eval lines castro diet cardiac dvt ppx lovenox therapeutic code status full code goals of care curative Plan discussed with: Patient My Orders Orders - MATILDE VILLEDA MD Procedure Category Date Status Time Pt Request For Service PT 08/31/24 Logged 13:24 Date of Service: Aug 31, 2024 Billing Provider: MATILDE VILLEDA MD Common Visit Codes: [id number] INP/OBS CARE(HIGH) MATILDE VILLEDA MD Aug 31, 2024 18:12
[2024-09-01] VITALS (7 sets, daily range): BP systolic 119–184; BP diastolic 56–93; PULSE 60–99; RESP 17–18; TEMP 97.7–98.1; O2SAT 94–99
[2024-09-01] MEDS: hydrALAZINE HCL 20 MG/ML VL IV ONE (05:45)
[2024-09-01] MEDS ORDERED: hydrALAZINE HCL 20 MG/ML VL IV PRN (11:45)
--- NOTE | 2024-09-01 11:49 | DVHPN2 ---
Subjective Date Seen: Sep 01, 2024 Post op day Post op day: 2 Patient reports: No new complaints Nursing reports: No new complaints General: Normal HNT: Normal Cardiovascular: Normal Respiratory: Normal Gastrointestinal: Normal Genitourinary: Normal Musculoskeletal: Normal Neurological: Normal Objective Vitals Vital Sign Date Time Temp Pulse Resp B/P (MAP) Pulse Ox O2 Delivery O2 Flow Rate FiO2 09/01/24 10:59 72 164/85 09/01/24 09:07 97.7 18 99 97.7 08/31/24 20:00 Room Air* 0 21 Total Intake and Output 08/31/24 08/31/24 09/01/24 15:00 23:00 07:00 Intake Total 50 ml Balance 50 ml Medications Current Medications Medications Dose Ordered Sig/Rosana Route Start Time Stop Time Status Last Admin Dose Admin Diagnostic Test (Pha) 1 strip ACHS 08/23/24 22:00 09/01/24 11:31 1 STRIP Insulin Human Regular ACHS SC 08/23/24 22:00 09/01/24 11:30 3 UNITS Dextrose 50 ml UD PRN IV 08/23/24 19:15 Acetaminophen/ Hydrocodone Bitart 1 tab Q4HP PRN PO 08/23/24 19:15 08/30/24 17:00 1 TAB Acetaminophen 650 mg Q8HR PO 08/24/24 14:00 09/01/24 05:48 650 MG Ibuprofen 400 mg Q8HR PO 08/24/24 14:00 09/01/24 05:47 400 MG Morphine Sulfate 4 mg Q6HPRN PRN IV 08/24/24 14:00 Pantoprazole Sodium 40 mg DAILY@0600 PO 08/25/24 06:00 09/01/24 05:47 40 MG Sacubitril/ Valsartan 1 tab BID PO 08/26/24 10:53 09/01/24 10:59 1 TAB Empaglifozin 10 mg DAILY PO 08/26/24 10:53 09/01/24 10:53 10 MG Insulin Glargine 15 units DAILY@1000 SC 08/27/24 10:00 09/01/24 11:30 15 UNITS Insulin Human Lispro 3 units AC SC 08/26/24 11:30 08/31/24 17:09 3 UNITS Carvedilol 6.25 mg Q12HR PO 08/27/24 10:00 09/01/24 10:59 6.25 MG Ceftriaxone Sodium 50 ml @ 100 mls/hr DAILY@09 IV 08/28/24 20:52 09/01/24 11:00 100 MLS/HR Sodium Chloride 1,000 ml @ 50 mls/hr Q20H IV 08/29/24 12:30 09/01/24 05:51 50 MLS/HR General: Normal, Well developed Head/Eyes: Normal Neck: Normal Cardiovascular: Normal Abdominal: Normal, Soft, Normal inspection, Non tender Musculoskeletal: Normal Extremities: Other (Left below knee amputation) Neurological: Normal Labs and Microbiology Laboratory Tests 08/30/24 05:57 Test 08/30/24 05:57 Range/Units Serum Glucose 116 H 74-106 mg/dL Ass/Plan Labs and/or images reviewed: Labs reviewed by me, Image(s) reviewed by me Problem List 08/29/24 wound without purulence,proximal lower leg non tender.explained attempt at revision BKA with fair chance for success, the stump may be too short for a prosthetic limb and if not healing will need to proceed with above the knee amputation, operation, risks and complications explained ,all questions answered 08/31/24 dressing dry, good ROM left knee, instructed on active rom exercises. questions answered Assessment/Plan 1. s/p left below knee guillotine amputation POD #3 P: 1. continue with wound care to Left leg 2. BKA revision once infection clears 08/28/2024 - s/p left below knee amputation POD#5 no complaints from patient resting comfortably in bed with family at bedside left leg stump necrotic tissue, no erythema , no drainage noted possible revision of left below the knee amputation with closure on monday Dr. Foreman will speak to patient and family tomorrow new dressings applied 09/01/2024 s/p left revision below the knee amputation POD#2 no new complaints full rom of motion left knee , wound fady intact, no erythema, no drainage , Plan: wound dressing change continue current treatment Prognosis: Good Plan discussed with patient Visit Coding Surgery Date of Service if different f: Sep 01, 2024 Billing Provider: NILE FOREMAN MD Surgery Visit Codes: [id number] INP/OBS CARE(HIGH) ESTEBAN OLGUIN [facility] Sep 01, 2024 11:49
--- NOTE | 2024-09-01 15:23 | DVHPN2 ---
Subjective 08/31 patient is postop day 1 revision, initial surgery on 08/23. Patient had left BKA for necrotizing fasciitis. Patient is appearing well, pain controlled with p.r.n. analgesia. Surgery following and wants to hold off full-dose anticoagulation which is needed for history of DVTs. We will continue PT evaluations. 09/01 patient had tough time sleeping last night. We will add trazodone 50 HS prn. And we will continue to optimize pain control. Surgery following. Still on DVT prophylaxis dose has surgery recommends to hold off full-dose until wound heals properly. We will allow 1 more day to re-evaluate surgery Reviewed: H&P Changes from previous H/P or p: No Changes General: Per HPI Eyes: No Pain, No Vision change, No Conjunctivae inflammation, No Eyelid inflammation, No Other, No Redness ENT: No Ear pain, No Ear discharge, No Nose pain, No Nose discharge, No Nose congestion, No Mouth pain, No Mouth swelling, No Throat pain, No Throat swelling, No Other Cardiovascular: No Chest Pain, No Palpitations, No Orthopnea, No Paroxysmal Noc. Dyspnea, No Edema, No Lt Headedness, No Other Respiratory: No Cough, No Dry, No Shortness of breath, No SOB with excertion, No Wheezing, No Hemoptysis, No Pleuritic Pain, No Sputum, No Other Gastrointestinal: No Nausea, No Vomiting, No Abdominal Pain, No Diarrhea, No Constipation, No Melena, No Hematochezia, No Other Genitourinary: No Dysuria, No Frequency, No Incontinence, No Hematuria, No Retention, No Other Musculoskeletal: other (Left foot swelling/redness); No neck pain, No shoulder pain, No arm pain, No back pain, No hand pain, No leg pain, No foot pain Skin: No Rash, No Lesions, No Jaundice, No Bruising; Other (Left foot diabetic ulcer) Objective Vitals Vital Signs Date Time Temp Pulse Resp B/P (MAP) Pulse Ox O2 Delivery O2 Flow Rate FiO2 09/01/24 13:00 98.0 74 18 155/84 (107) 94 98.0 09/01/24 08:00 Room Air* 0 21 Intake/Output Intake and Output 09/01/24 07:00 Intake Total 50 ml Balance 50 ml IV Total 50 ml Exam Alert oriented x3 clear breath sounds s1 s2 rrr abdomen soft s/p L BKA Medications Current Medications Medications Dose Ordered Sig/Rosana Route Start Time Stop Time Status Last Admin Dose Admin Diagnostic Test (Pha) 1 strip ACHS 08/23/24 22:00 09/01/24 11:31 1 STRIP Insulin Human Regular ACHS SC 08/23/24 22:00 09/01/24 11:30 3 UNITS Dextrose 50 ml UD PRN IV 08/23/24 19:15 Acetaminophen/ Hydrocodone Bitart 1 tab Q4HP PRN PO 08/23/24 19:15 08/30/24 17:00 1 TAB Acetaminophen 650 mg Q8HR PO 08/24/24 14:00 09/01/24 14:57 650 MG Ibuprofen 400 mg Q8HR PO 08/24/24 14:00 09/01/24 14:56 400 MG Morphine Sulfate 4 mg Q6HPRN PRN IV 08/24/24 14:00 Pantoprazole Sodium 40 mg DAILY@0600 PO 08/25/24 06:00 09/01/24 05:47 40 MG Sacubitril/ Valsartan 1 tab BID PO 08/26/24 10:53 09/01/24 10:59 1 TAB Empaglifozin 10 mg DAILY PO 08/26/24 10:53 09/01/24 10:53 10 MG Insulin Glargine 15 units DAILY@1000 SC 08/27/24 10:00 09/01/24 11:30 15 UNITS Insulin Human Lispro 3 units AC SC 08/26/24 11:30 08/31/24 17:09 3 UNITS Carvedilol 6.25 mg Q12HR PO 08/27/24 10:00 09/01/24 10:59 6.25 MG Ceftriaxone Sodium 50 ml @ 100 mls/hr DAILY@09 IV 08/28/24 20:52 09/01/24 11:00 100 MLS/HR Sodium Chloride 1,000 ml @ 50 mls/hr Q20H IV 08/29/24 12:30 09/01/24 05:51 50 MLS/HR Hydralazine HCl 10 mg Q6HP PRN IV 09/01/24 11:45 Trazodone HCl 50 mg HS PO 09/01/24 22:00 Laboratory Results Laboratory Tests 08/30/24 05:57 Urinalysis Test 08/23/24 12:37 Urine Color Yellow (Yellow) Urine Clarity Clear (Clear) Urine pH 5.0 (5.0-9.0) Urine Specific [place] 1.019 (1.001-1.035) Urine Protein 1+ (Negative) H Urine Ketones Trace (Negative) Urine Blood 1+ /uL (Negative) H Urine Nitrite Negative (Negative) Urine Bilirubin Negative (Negative) Urine Urobilinogen Normal mg/dL (Negative) Urine Leukocyte Esterase Negative /uL (Negative) Urine RBC 2 /hpf (0 - 3) Urine Microscopic WBC 2 /HPF (0-3) Urine Squamous Epithelial Cells None seen /hpf (<5) Urine Bacteria None seen /hpf (None Seen) Urine Glucose 4+ mg/dL (Normal) H Microbiology Microbiology Date/Time Source Procedure Growth Status 08/27/24 13:11 Blood Blood Culture - Final NO GROWTH AFTER 5 DAYS OF INCUBATION. Complete 08/23/24 22:30 Nose MRSA Screen - Final Complete Labs and/or images reviewed: Labs reviewed by me, Image(s) reviewed by me Assessment/Plan Assessment/Plan 09/01 patient had tough time sleeping last night. We will add trazodone 50 HS prn. And we will continue to optimize pain control. Surgery following. Still on DVT prophylaxis dose has surgery recommends to hold off full-dose until wound heals properly. We will allow 1 more day to re-evaluate surgery necrotizing fasciitis s/p L BKA septic shock resolved hyperK resolved transaminitis IDDM chronic systolic heart failure HFrEF 40% HTN ecoli bacteremia hx of dvt on eliquis c/w ceftriaxone d/c vanc and zosyn resume home meds pain management iv resuscitation follow echo pt when bleeding stops transfer to telemetry resume GDMT basal bolus insulin + ISS full lovenox hold , we will continue prophylactic dose only PT eval lines castro diet cardiac dvt ppx lovenox therapeutic code status full code goals of care curative Plan discussed with: Patient My Orders Orders - MATILDE VILLEDA MD Procedure Category Date Status Time Hydralazine Injection PHA 09/01/24 In Process (Apresoline Inject 11:45 Trazodone Hcl PHA 09/01/24 In Process (Desyrel) 22:00 Date of Service: Sep 01, 2024 Billing Provider: MATILDE VILLEDA MD Common Visit Codes: [id number] INP/OBS CARE(HIGH) MATILDE VILLEDA MD Sep 01, 2024 15:23
[2024-09-01] MEDS: traZODone HCL 50 MG TAB PO SCH (21:39)
[2024-09-02 01:00] VITALS: BP 165/75; PULSE 67; RESP 18; TEMP 98.1; O2SAT 99
[2024-09-02 05:00] VITALS: BP 158/78; PULSE 75; RESP 20; TEMP 98; O2SAT 98
[2024-09-02 05:59] LABS: Basophils # (auto) 0 10 ^3/uL (0-0.2); Basophils % (auto) 0.4 % (0.0-2.0); Hemoglobin 8.4 g/dL (13.5-17.5); Lymphocytes # (auto) 1.6 10 ^3/uL (0.4-5.4); Lymphocytes % (auto) 21.7 % (10.0-50.0)
[2024-09-02 06:00] LABS: Eosinophils # (auto) 0.2 10 ^3/uL (0-0.8); Eosinophils % (auto) 2.3 % (0.0-7.0); Hematocrit 24.8 % (41.0-53.0); Mean Corpuscular Hemoglobin 29.6 pg (28.0-32.0); Mean Corpuscular Hgb Conc. 33.9 g/dL (32.0-36.0); Mean Corpuscular Volume 87.3 fL (80.0-100.0); Monocytes # (auto) 0.7 10 ^3/uL (0-1.3); Monocytes % (auto) 9.1 % (0.0-12.0); Neutrophils # (auto) 4.8 10 ^3/uL (1.6-8.6); Neutrophils % (auto) 66.5 % (37.0-80.0); Platelet Count (auto) 323 10^3/uL (140-450); Red Blood Cells 2.84 10^6/uL (4.5-5.90); Red Cell Distribution Width 15.1 % (11.8-14.3); White Blood Cell 7.2 10^3/uL (4.4-10.8)
[2024-09-02 06:20] LABS: Albumin 3.3 g/dL (3.2-4.8); Alkaline Phosphatase 100 U/L (46-116); Anion Gap 8 (5-15); BUN/Creatinine Ratio 20.8 (10.0-20.0); Blood Urea Nitrogen 16 mg/dL (9-23); Calcium 8.9 mg/dL (8.7-10.4); Carbon Dioxide 22 mmol/L (20-31); Glucose 104 mg/dL (74-106); Sodium 138 mmol/L (136-145)
[2024-09-02 06:21] LABS: Alanine Aminotransferase 74 U/L (7-40); Aspartate Aminotransferase 47 U/L (13-40); Bilirubin, Total 0.4 mg/dL (0.2-1.0); Chloride 108 mmol/L (98-107)
[2024-09-02 09:00] VITALS: BP 144/66; PULSE 60; RESP 17; TEMP 98; O2SAT 99
[2024-09-02] MEDS: SACUBITRIL-VALSARTAN 24mg/26mg TAB PO SCH (10:09)
--- NOTE | 2024-09-02 10:29 | DVHPN2 ---
Subjective Date Seen: Sep 02, 2024 Post op day Post op day: 3 Patient reports: No new complaints Nursing reports: No new complaints General: Normal HNT: Normal Cardiovascular: Normal Respiratory: Normal Gastrointestinal: Normal Genitourinary: Normal Musculoskeletal: Normal Neurological: Normal Objective Vitals Vital Sign Date Time Temp Pulse Resp B/P (MAP) Pulse Ox O2 Delivery O2 Flow Rate FiO2 09/02/24 10:11 60 144/66 09/02/24 05:00 98.0 20 98 98.0 09/01/24 20:00 Room Air* 0 21 Total Intake and Output 09/01/24 09/01/24 09/02/24 15:00 23:00 07:00 Intake Total 50 ml 1205 ml 1380 ml Output Total 950 ml 600 ml Balance 50 ml 255 ml 780 ml Medications Current Medications Medications Dose Ordered Sig/Rosana Route Start Time Stop Time Status Last Admin Dose Admin Diagnostic Test (Pha) 1 strip ACHS 08/23/24 22:00 09/02/24 06:34 1 STRIP Insulin Human Regular ACHS SC 08/23/24 22:00 09/01/24 21:54 4 UNITS Dextrose 50 ml UD PRN IV 08/23/24 19:15 Acetaminophen 650 mg Q8HR PO 08/24/24 14:00 09/02/24 06:20 650 MG Ibuprofen 400 mg Q8HR PO 08/24/24 14:00 09/02/24 06:21 400 MG Morphine Sulfate 4 mg Q6HPRN PRN IV 08/24/24 14:00 Pantoprazole Sodium 40 mg DAILY@0600 PO 08/25/24 06:00 09/02/24 06:20 40 MG Empaglifozin 10 mg DAILY PO 08/26/24 10:53 09/02/24 10:11 10 MG Insulin Glargine 15 units DAILY@1000 SC 08/27/24 10:00 09/02/24 10:18 15 UNITS Insulin Human Lispro 3 units AC SC 08/26/24 11:30 09/02/24 06:32 3 UNITS Carvedilol 6.25 mg Q12HR PO 08/27/24 10:00 09/02/24 10:11 6.25 MG Ceftriaxone Sodium 50 ml @ 100 mls/hr DAILY@09 IV 08/28/24 20:52 09/02/24 10:10 100 MLS/HR Sodium Chloride 1,000 ml @ 50 mls/hr Q20H IV 08/29/24 12:30 09/02/24 02:31 50 MLS/HR Trazodone HCl 50 mg HS PO 09/01/24 22:00 09/01/24 21:39 50 MG Sacubitril/ Valsartan 2 tab BID PO 09/02/24 10:00 09/02/24 10:09 2 TAB General: Normal, Well developed Head/Eyes: Normal Neck: Normal Cardiovascular: Normal Abdominal: Normal, Soft, Normal inspection, Non tender Musculoskeletal: Normal Extremities: Other (Left below knee amputation) Neurological: Normal Labs and Microbiology Laboratory Tests 09/02/24 05:06 Test 09/02/24 05:06 Range/Units Serum Glucose 104 74-106 mg/dL Ass/Plan Labs and/or images reviewed: Labs reviewed by me, Image(s) reviewed by me Problem List 08/29/24 wound without purulence,proximal lower leg non tender.explained attempt at revision BKA with fair chance for success, the stump may be too short for a prosthetic limb and if not healing will need to proceed with above the knee amputation, operation, risks and complications explained ,all questions answered 08/31/24 dressing dry, good ROM left knee, instructed on active rom exercises. questions answered Assessment/Plan 1. s/p left below knee guillotine amputation POD #3 P: 1. continue with wound care to Left leg 2. BKA revision once infection clears 08/28/2024 - s/p left below knee amputation POD#5 no complaints from patient resting comfortably in bed with family at bedside left leg stump necrotic tissue, no erythema , no drainage noted possible revision of left below the knee amputation with closure on monday Dr. Foreman will speak to patient and family tomorrow new dressings applied 09/01/2024 s/p left revision below the knee amputation POD#2 no new complaints full rom of motion left knee , wound fady intact, no erythema, no drainage Plan: wound dressing change continue current treatment 09/02/24 s/p left revision below the knee amputation POD#2 full rom of motion left knee , wound fady intact, no erythema, no drainage Plan: please provide walker for patient in hospital use and for home dressing off continue PT Prognosis: Good Plan discussed with patient, family at bedside, Dr. Foreman Visit Coding Surgery Date of Service if different f: Sep 02, 2024 Billing Provider: NILE FOREMAN MD Surgery Visit Codes: [id number] INP/OBS CARE(HIGH) [facility] Sep 02, 2024 10:29
[2024-09-02 13:12] VITALS: BP 153/75; PULSE 64; RESP 16; TEMP 98; O2SAT 99
--- NOTE | 2024-09-02 13:49 | DVHPN2 ---
Assessment/Plan Assessment/Plan Progress note 53 yo M with IDDM, HFrEF 40%, admitted for nec fasc, seen by surgery, s/p R guilotine BKA 08/23. Also had sepsis on admission, on vanc and zosyn. s/p guilotine R BKA. revision POD3 restart full AC once OK by surgery. Physical exam Alert oriented x3 clear breath sounds s1 s2 rrr abdomen soft s/p L BKA Labs EKG imaging reviewed cultures ecoli on bcx and wound new bcx NGTD Assessment and plan necrotizing fasciitis s/p L BKA septic shock resolved hyperK resolved transaminitis IDDM chronic systolic heart failure HFrEF 40% HTN ecoli bacteremia hx of dvt on eliquis c/w ceftriaxone d/c vanc and zosyn resume home meds pain management iv resuscitation follow echo ss for home PT transfer to telemetry resume GDMT basal bolus insulin + ISS full lovenox hold, pending surg clearance patient received IV abx for 10 days, last culture clear, will dc with oral abx only to complete 2 weeks lines castro diet cardiac dvt ppx lovenox therapeutic on hold code status full code goals of care curative Plan discussed with: Patient My Orders Orders - BELLE VANEGAS MD Procedure Category Date Status Time * Compliance Examiner CONS 09/02/24 Transmitted Consult Sacubitril-Valsartan PHA 09/02/24 In Process (Entresto 24-26 Mg 10:00 Date of Service: Sep 02, 2024 Billing Provider: BELLE VANEGAS MD Common Visit Codes: [id number] INP/OBS CARE(HIGH) BELLE VANEGAS MD Sep 02, 2024 13:49
[2024-09-02 16:47] VITALS: BP 155/78; PULSE 64; RESP 17; TEMP 98.1; O2SAT 98
[2024-09-02 21:00] VITALS: BP 154/66; PULSE 77; RESP 18; TEMP 98.3; O2SAT 99
[2024-09-03 01:00] VITALS: BP 161/73; PULSE 82; RESP 18; TEMP 98.3; O2SAT 99
[2024-09-03 05:00] VITALS: BP 165/81; PULSE 77; RESP 18; TEMP 98.8; O2SAT 99
[2024-09-03 09:18] VITALS: BP 159/71; PULSE 73; RESP 18; TEMP 98.2; O2SAT 97
[2024-09-03] MEDS ORDERED: INSUINJ37 SC (09:18)
[2024-09-03] MEDS ORDERED: ATOR40TA52 PO (09:18)
[2024-09-03] MEDS ORDERED: EMPA1TAB3 PO (09:18)
[2024-09-03] MEDS ORDERED: APIX5TAB PO (09:18)
[2024-09-03] MEDS ORDERED: IBU600T PO (09:18)
[2024-09-03] MEDS ORDERED: SACU1TAB7 PO (09:18)
[2024-09-03] MEDS ORDERED: ACET-1079 PO (09:18)
[2024-09-03] MEDS ORDERED: INSU100I54 SC (09:18)
[2024-09-03] MEDS ORDERED: ASPI-543 PO (09:18)
[2024-09-03] MEDS ORDERED: CARV-216 PO (09:18)
[2024-09-03] MEDS: CARVEDILOL 12.5 MG TAB PO SCH (10:12)
--- NOTE | 2024-09-03 12:52 | DVHPN2 ---
Progress Note Date Seen: Sep 03, 2024 Medical Necessity Reason Pt with a Central, PICC or Fol: No Objective vital signs Vital Sign Date Time Temp Pulse Resp B/P (MAP) Pulse Ox O2 Delivery O2 Flow Rate FiO2 09/03/24 10:12 73 159/71 09/03/24 09:18 98.2 18 97 98.2 09/03/24 08:00 Room Air* 0 21 Total Intake and Output 09/02/24 09/02/24 09/03/24 15:00 23:00 07:00 Intake Total 600 ml 300 ml Balance 600 ml 300 ml medications Current Medications Medications Dose Ordered Sig/Rosana Route Start Time Stop Time Status Last Admin Dose Admin Diagnostic Test (Pha) 1 strip ACHS 08/23/24 22:00 09/03/24 06:07 1 STRIP Insulin Human Regular ACHS SC 08/23/24 22:00 09/02/24 22:09 3 UNITS Dextrose 50 ml UD PRN IV 08/23/24 19:15 Acetaminophen 650 mg Q8HR PO 08/24/24 14:00 09/03/24 06:07 650 MG Ibuprofen 400 mg Q8HR PO 08/24/24 14:00 09/03/24 06:07 400 MG Pantoprazole Sodium 40 mg DAILY@0600 PO 08/25/24 06:00 09/03/24 06:06 40 MG Empaglifozin 10 mg DAILY PO 08/26/24 10:53 09/03/24 09:34 10 MG Insulin Glargine 15 units DAILY@1000 SC 08/27/24 10:00 09/03/24 09:43 15 UNITS Insulin Human Lispro 3 units AC SC 08/26/24 11:30 09/02/24 16:47 3 UNITS Ceftriaxone Sodium 50 ml @ 100 mls/hr DAILY@09 IV 08/28/24 20:52 09/03/24 09:35 100 MLS/HR Sodium Chloride 1,000 ml @ 50 mls/hr Q20H IV 08/29/24 12:30 09/02/24 02:31 50 MLS/HR Trazodone HCl 50 mg HS PO 09/01/24 22:00 09/02/24 21:56 50 MG Sacubitril/ Valsartan 2 tab BID PO 09/02/24 10:00 09/03/24 09:34 2 TAB Carvedilol 12.5 mg Q12HR PO 09/03/24 10:00 09/03/24 10:12 12.5 MG laboratory and microbiology Laboratory Tests 09/02/24 05:06 Test 09/02/24 05:06 Range/Units Serum Glucose 104 74-106 mg/dL Problem List/Assessment/Plan Problem List/Assessment/Plan 08/29/24 wound without purulence,proximal lower leg non tender.explained attempt at revision BKA with fair chance for success, the stump may be too short for a prosthetic limb and if not healing will need to proceed with above the knee amputation, operation, risks and complications explained ,all questions answered 08/31/24 dressing dry, good ROM left knee, instructed on active rom exercises. questions answered 09/03/24 good spirits moderate pain,good ROM left knee, left BK amputation healing , no infection, given instructions for discharge Plan discussed with: Patient, Spouse, Son Dietary Evaluation Review Comments: 1. Suggest increasing CHO allotment to 75 gm/meal to meet higher caloric needs to support wound healing 2. Frequently monitor BG, insulin for correction; goal <180 mg/dl while inpatient 3. Continue to encourage good oral intake >75% of meals 4. Suggest addition of Ensure HP BID to support wound healing (provides 160 kcal, 16 gm pro, 19 gm CHO per carton) Expected Outcomes/Goals: Maintain skin integrity, support wound healing, weight maintenance. NILE AGUIAR MD Sep 03, 2024 12:52
[2024-09-03 13:24] VITALS: BP 150/81; PULSE 66; RESP 18; TEMP 98.3; O2SAT 99
[2024-09-03] MEDS ORDERED: LEVO500T91 PO (13:41)
--- NOTE | 2024-09-03 13:44 | DVHDS2 ---
Discharge Summary Date of Admission Aug 23, 2024 at 19:36 Date of Discharge: Sep 03, 2024 Labs/Diagnostic Data: Laboratory Results Test 09/03/24 11:34 09/02/24 05:06 08/30/24 05:57 08/27/24 19:04 POC Glucose 165 mg/dl (70-106) White Blood Count 7.2 10^3/uL (4.4-10.8) Red Blood Count 2.84 10^6/uL (4.5-5.90) Hemoglobin 8.4 g/dL (13.5-17.5) Hematocrit 24.8 % (41.0-53.0) Mean Corpuscular Volume 87.3 fL (80.0-100.0) Mean Corpuscular Hemoglobin 29.6 pg (28.0-32.0) Mean Corpuscular Hemoglobin Concent 33.9 g/dL (32.0-36.0) Red Cell Distribution Width 15.1 % (11.8-14.3) Platelet Count 323 10^3/uL (140-450) Mean Platelet Volume 6.7 fL (6.9-10.8) Neutrophils (%) (Auto) 66.5 % (37.0-80.0) Lymphocytes (%) (Auto) 21.7 % (10.0-50.0) Monocytes (%) (Auto) 9.1 % (0.0-12.0) Eosinophils (%) (Auto) 2.3 % (0.0-7.0) Basophils (%) (Auto) 0.4 % (0.0-2.0) Neutrophils # (Auto) 4.8 10 ^3/uL (1.6-8.6) Lymphocytes # (Auto) 1.6 10 ^3/uL (0.4-5.4) Monocytes # (Auto) 0.7 10 ^3/uL (0-1.3) Eosinophils # (Auto) 0.2 10 ^3/uL (0-0.8) Basophils # (Auto) 0 10 ^3/uL (0-0.2) Nucleated Red Blood Cells 0.0 % Sodium Level 138 mmol/L (136-145) Potassium Level 4.0 mmol/L (3.5-5.1) Chloride Level 108 mmol/L (98-107) Carbon Dioxide Level 22 mmol/L (20-31) Anion Gap 8 (5-15) Blood Urea Nitrogen 16 mg/dL (9-23) Creatinine 0.77 mg/dL (0.700-1.30) Glomerular Filtration Rate Calc 106 mL/min (>90) BUN/Creatinine Ratio 20.8 (10.0-20.0) Serum Glucose 104 mg/dL (74-106) Calcium Level 8.9 mg/dL (8.7-10.4) Total Bilirubin 0.4 mg/dL (0.2-1.0) Aspartate Amino Transferase (AST) 47 U/L (13-40) Alanine Aminotransferase (ALT) 74 U/L (7-40) Alkaline Phosphatase 100 U/L (46-116) Total Protein 6.0 g/dL (5.7-8.2) Albumin 3.3 g/dL (3.2-4.8) Prothrombin Time 11.3 sec (9.3-11.8) Prothrombin Time INR 1.07 (0.9-1.15) Activated Partial Thromboplast Time 31.1 SEC (24.5-34.5) Phosphorus Level 2.6 mg/dL (2.4-5.1) Magnesium Level 2.2 mg/dL (1.6-2.6) Vancomycin Level Trough 9.9 ug/mL (5-10) Test 08/26/24 06:40 08/24/24 03:11 08/23/24 23:11 08/23/24 14:46 Random Vancomycin Level 12.0 ug/mL (5-10) Lactate Dehydrogenase 264 U/L (120-246) Hemoglobin A1c 7.8 % A1C (<5.7) Lactic Acid Level 1.3 mmol/L (0.4-2.0) Test 08/23/24 12:57 08/23/24 12:37 Erythrocyte Sedimentation Rate 76 mm/hr (0-20) Troponin I High Sensitivity 10 ng/L (</=54) C-Reactive Protein High Sensitivity > 20.00 mg/dL (<1.0) B-Type Natriuretic Peptide 368.21 pg/mL (0-100) Urine Color Yellow (Yellow) Urine Clarity Clear (Clear) Urine pH 5.0 (5.0-9.0) Urine Specific [place] 1.019 (1.001-1.035) Urine Protein 1+ (Negative) Urine Ketones Trace (Negative) Urine Blood 1+ /uL (Negative) Urine Nitrite Negative (Negative) Urine Bilirubin Negative (Negative) Urine Urobilinogen Normal mg/dL (Negative) Urine Leukocyte Esterase Negative /uL (Negative) Urine RBC 2 /hpf (0 - 3) Urine Microscopic WBC 2 /HPF (0-3) Urine Squamous Epithelial Cells None seen /hpf (<5) Urine Bacteria None seen /hpf (None Seen) Urine Glucose 4+ mg/dL (Normal) Other Laboratory Tests 09/02/24 05:06 Brief Hx & Hospital Course: 53 yo M with IDDM, HFrEF 40%, admitted for nec fasc, seen by surgery, s/p R tawana ESPINOZA 08/23. Also had sepsis on admission, on vanc and zosyn. Uncontrolled diabetes and hypertension. started on insulin basal bolus titrated to glucose control, and GDMT uptitrated. Eliquis was held, started on therapeutic lovenox post surgery, and was on hold from 1 night prior to revision to today. will discharge to resume eliquis. meds sent to pharmacy, home health PT and wound care. Condition at Discharge: Stable Final Diagnosis/Problems List nec fasc s/p BKA Discharge Disposition: Home with Health Services Discharge Instruct/Medications Diet: Consistent carbohydrate, Cardiac 2g Na,low cholest Activity: No Restrictions, As Tolerated Follow Up/Referral: PCP surgery dc clinic Medications: eliquis entresto coreg jardiance ASA tylenol motrin lantus lispro Discharge Statement: "Patient was advised to return to the ER or call 911 if any headaches, dizziness, shortness of breath, chest pain, abdominal pain, bleeding, fevers, or worsening of medical condition. Patient was counseled about treatment plan, medications, possible side effects, patientverbalized understanding. All questions were answered to the best of my ability. This discharge took greater then 30 minutes in planning, reviewing documentation, counseling the patient, and discussing with other team members." DME: Diagnosis: left below knee amputation for use at home ASSESSMENT ASSESSMENT Assessment necrotizing fasciitis s/p L BKA septic shock resolved hyperK resolved transaminitis IDDM chronic systolic heart failure HFrEF 40% HTN ecoli bacteremia hx of dvt on eliquis Date of Service: Sep 03, 2024 Billing Provider: BELLE VANEGAS MD Common Visit Codes: [id number] DISCH DAY >30min BELLE VANEGAS MD Sep 03, 2024 13:44
[2024-09-03 14:52] VITALS: BP 150/81; PULSE 70; RESP 17; TEMP 36.8; O2SAT 99
== END 2024-09-03 15:45 | disposition home or self-care (01) | DRG 710 ==
LOC: ER 12:04 → OVERFLOW 19:36 → ICU WEST 22:30 → TELE-EAST 08-25 18:21 → EAST 08-26 00:14
PROVIDERS: ADMIT Student in an Organized Health Care Education/Training Program; ATTEND Student in an Organized Health Care Education/Training Program
PROC: 0Y6G0ZZ Detachment at Left Knee Region, Open Approach (ICD-10-PCS; principal; 2024-08-23 20:15)
PROC: 0Y6J0Z3 Detachment at Left Lower Leg, Low, Open Approach (ICD-10-PCS; 2024-08-30)
DX: A41.51 Sepsis due to Escherichia coli [E. coli] (principal); R65.21 Severe sepsis with septic shock; M72.6 Necrotizing fasciitis; L03.116 Cellulitis of left lower limb; L97.529 Non-pressure chronic ulcer of other part of left foot with unspecified severity; E11.52 Type 2 diabetes mellitus with diabetic peripheral angiopathy with gangrene; E11.621 Type 2 diabetes mellitus with foot ulcer; E66.9 Obesity, unspecified; I50.22 Chronic systolic (congestive) heart failure; E78.5 Hyperlipidemia, unspecified; R74.8 Abnormal levels of other serum enzymes; E11.65 Type 2 diabetes mellitus with hyperglycemia; I11.0 Hypertensive heart disease with heart failure; R74.01 Elevation of levels of liver transaminase levels; E87.5 Hyperkalemia; Z68.37 Body mass index [BMI] 37.0-37.9, adult; Z79.4 Long term (current) use of insulin; Z86.718 Personal history of other venous thrombosis and embolism; Z89.511 Acquired absence of right leg below knee
CPT/HCPCS: 36415; 71045; 73701; 80048; 80053; 80202; 81001; 82565; 82962; 83036; 83605; 83615; 83735; 83880; 84100; 84484; 85014; 85018; 85025; 85048; 85049; 85610; 85652; 85730; 86141; 86850; 86900; 86901; 87040; 87070; 87075; 87077; 87081; 87186; 87205; 93005; 93306; 93971; 96365; 96375; 97110; 97116; 97163; 97530; 99291; G0378; J0690; J1815; J2250; J2405; J2470; J2543; J2704; J3490

== ENCOUNTER 2024-09-26 18:39 | Inpatient (IN) | payer MEDICAID ==
[~2024-09-26] VITALS: Ht 175.3 cm; Wt 108.9 kg
[~2024-09-26 18:39] MED LIST: ACET-1079 PO; APIX5TAB PO; ASPI-543 PO; ATOR40TA52 PO; CARV-216 PO; EMPA1TAB3 PO; ERGO2000 PO; IBU600T PO; INSU100I54 SC; INSUINJ37 SC; LEVO500T91 PO; PANT40TA2 PO; SACU1TAB7 PO; SPIR25TA8 PO
--- NOTE | 2024-09-26 19:40 | ED.PDOC ---
Musculoskeletal HPI Comments 53-year-old male who came to ER for wound check. Patient was admitted here last month with a wet gangrene of the left foot with pus tracking along the left tibia proximally and he underwent last 08/23/2024 left doxtc-aix-hpat guillotine amputation, and revision of left BKA last 08/30. Patient had his stitches removed 2 days ago. Patient was at therapy earlier today, when he accidentally fell in the wound of the left BKA opened up. Patient denies any pain. No active bleeding at this time. No pus or discharge noted. Chief Complaint: Wound Check Time Seen by MD: 19:40 Primary Care Provider: unknown Reviewed Notes: Nurses Notes Allergies: Coded Allergies: NO KNOWN ALLERGIES (Unverified , 08/23/24) Home Meds Active Scripts Levofloxacin Hemihydrate (LEVOFLOXACIN) 500 Mg Tab, 1 TAB PO DAILY for 14 Days, #14 TAB Prov:BELLE VANEGAS MD 09/03/24 Ibuprofen Micronized (MOTRIN TABLET) 600 Mg Tb, 600 MG PO TID PRN for 20 Days, #60 TAB *Black box warning-NSAIDS can increase risk of NC & hypertension, GI irritation, ulceration, bleed, perferation. Do not use post cardiac surgery. Use short duration/lowest effective dose. Prov:BELLE VANEGAS MD 09/03/24 Acetaminophen (Tylenol) 325 Mg Tb, 650 MG PO Q8HR PRN for 30 Days, #180 TAB Prov:BELLE VANEGAS MD 09/03/24 Insulin Lispro (Insulin Lispro Kwikpen) 100 Unit/Ml Inj, 3 UNIT SC AC for 90 Days, #90 INJ 1 Refill if blood glucose <70 do not take if blood glucose 71-150 take 2 units if blood glucose 151-200 take 3 units if blood glucose 201-250 take 4 units if blood glucose 251-300 take 5 units Prov:BELLE VANEGAS MD 09/03/24 Insulin Glargine (Lantus Solostar) 100 Unit/Ml Inj, 15 UNIT SC HS for 90 Days, #90 INJ 1 Refill Prov:BELLE VANEGAS MD 09/03/24 Empagliflozin (Jardiance) 25 Mg Tab, 25 MG PO DAILY for 90 Days, #90 TAB 1 Refill Prov:BELLE VANEGAS MD 09/03/24 Apixaban Base (ELIQUIS) 5 Mg Tab, 5 MG PO BID for 90 Days, #180 TAB 1 Refill Prov:BELLE VANEGAS MD 09/03/24 Atorvastatin Calcium (ATORVASTATIN CALCIUM) 40 Mg Tab, 1 TAB PO DAILY, #90 TAB 1 Refill Prov:BELLE VANEGAS MD 09/03/24 Carvedilol (COREG) 12.5 Mg Tab, 12.5 MG PO BID for 90 Days, #180 TAB 1 Refill Prov:BELLE VANEGAS MD 09/03/24 Aspirin (Aspir-Low) 81 Mg Tab, 81 MG PO DAILY for 90 Days, #90 MG 1 Refill Prov:BELLE VANEGAS MD 09/03/24 Sacubitril-Valsartan (Entresto 49-51 mg) 1 Tab Tab, 1 TAB PO BID for 90 Days, #180 TAB 1 Refill Prov:BELLE VANEGAS MD 09/03/24 Reported Medications Ergocalciferol (VITAMIN D2) 2,000 Unit Tab, 70226 UNIT PO Weekly, TAB 08/24/24 Spironolactone (Spironolactone) 25 Mg Tab, 1 TAB PO DAILY, #90 TAB 1 Refill 08/24/24 Pantoprazole Sodium Sesquihydr (Protonix) 40 Mg Tab, 40 MG PO DAILY, #30 TAB 08/24/24 Information Source: Patient Mode of Arrival: Ambulatory Location: Left Extremity Location: Leg Timing: Hours Prehospital treatment: None Severity: Moderate Able to Move Extremity: Yes Bear Weight: Limited Pain: Moderate Hand Dominance: Right Mechanism: Blunt Trauma Circumstances: Fall Onset of Symptoms: After Trauma Past Medical History PAST MEDICAL HISTORY: DM Surgical History: BKA (left) Family History Family History: Reviewed,noncontributory to illness Social History Smoker: Non-Smoker Alcohol: Denies ETOH Use Drugs: Denies Drug Use Lives In: Home Constitutional: denies: chills, diaphoresis, fatigue, fever, malaise, sweats, weakness, others EENTM: denies: blurred vision, double vision, ear bleeding, ear discharge, ear drainage, ear pain, ear ringing, eye pain, eye redness, hearing loss, mouth pain, mouth swelling, nasal discharge, nose bleeding, nose congestion, nose pain, photophobia, tearing, throat pain, throat swelling, voice changes, others Respiratory: denies: cough, hemoptysis, orthopnea, SOB at rest, shortness of breath, SOB with excertion, stridor, wheezing, others Cardiovascular: denies: chest pain, dizzy spells, diaphoresis, Dyspnea on exertion, edema, irregular heart beat, left arm pain, lightheadedness, palpitations, PND, syncope, others Gastrointestinal: denies: abdomen distended, abdominal pain, blood streaked bowels, constipated, diarrhea, dysphagia, difficulty swallowing, hematemesis, melena, nausea, poor appetite, poor fluid intake, rectal bleeding, rectal pain, vomiting, others Genitourinary: denies: burning, dysuria, flank pain, frequency, hematuria, incontinence, penile discharge, penile sore, pain, testicle pain, testicle swelling, urgency, others Neurological: denies: dizziness, fainting, headache, left sided numbness, left sided weakness, numbness, paresthesia, pre-existing deficit, right sided numbness, right sided weakness, seizure, speech problems, tingling, tremors, weakness, others Musculoskeletal: denies: back pain, gout, joint pain, joint swelling, muscle pain, muscle stiffness, neck pain, others Integumetry: reports: wounds (wound dehiscence, left BKA); denies: bruises, change in color, change in hair/nails, dryness, laceration, lesions, lumps, rash, others Allergic/Immunocompromised: denies: Difficulty Healing, Frequent Infections, Hives, Itching, others Hematologic/Lymphatic: denies: anemia, blood clots, easy bleeding, easy bruising, swollen glands, others Endocrine: denies: excessive hunger, excessive sweating, excessive thirst, excessive urination, flushing, intolerance to cold, intolerance to heat, unexplained weight gain, unexplained weight loss, others Psychiatric: denies: anxiety, bipolar disorder, depression, hopeless, panic disorder, schizophrenia, sleepless, suicidal, others Physical Exam General Appearance: No Apparent Distress, Normal HEENT: Normal ENT Inspection, Pharynx Normal, TMs Normal Neck: Full Range of Motion, Non-Tender, Normal, Normal Inspection Respiratory: Chest Non-Tender, Lungs Clear, No Accessory Muscle Use, No Respiratory Distress, Normal Breath Sounds Cardiovascular: No Edema, No JVD, No Murmur, No Gallop, Normal Peripheral Pulses, Regular Rate/Rhythm Breast Exam: Deferred Gastrointestinal: No Organomegaly, Non Tender, No Pulsatile Mass, Normal Bowel Sounds, Soft Genitalia: Deferred Pelvic: Deferred Rectal: Deferred Extremities: No calf tenderness, Normal capillary refill, Normal range of motion, Non-tender, No pedal edema, Other (left BKA with wound dehiscence) Musculoskeletal : Apperance: Normal Neurologic: Alert, hvac field service technician II-XII nml as Tested, No Motor Deficits, Normal Affect, Normal Mood, No Sensory Deficits Cerebellar Function: Normal Reflexes: Normal Skin: Dry, Normal Color, Warm Lymphatic: No Adenopathy Was a procedure done? Was a procedure done?: No Differential Diagnosis EXT Differential Diagnosis: Cellulitis, Laceration, Contusion, Septic, Arthritis, Bursitis, Other (Left BKA) X-Ray, Labs, Meds, VS Vital Signs Date Time Temp Pulse Resp B/P (MAP) Pulse Ox O2 Delivery O2 Flow Rate FiO2 09/26/24 19:26 98.9 67 20 185/78 (113) 100 98.9 Lab Test 09/26/24 20:08 Range/Units White Blood Count 6.8 4.4-10.8 10^3/uL Red Blood Count 4.36 L 4.5-5.90 10^6/uL Hemoglobin 12.8 L 13.5-17.5 g/dL Hematocrit 38.3 L 41.0-53.0 % Mean Corpuscular Volume 87.8 80.0-100.0 fL Mean Corpuscular Hemoglobin 29.4 28.0-32.0 pg Mean Corpuscular Hemoglobin Concent 33.5 32.0-36.0 g/dL Red Cell Distribution Width 17.8 H 11.8-14.3 % Platelet Count 253 140-450 10^3/uL Mean Platelet Volume 7.8 6.9-10.8 fL Neutrophils (%) (Auto) 67.1 37.0-80.0 % Lymphocytes (%) (Auto) 21.2 10.0-50.0 % Monocytes (%) (Auto) 9.6 0.0-12.0 % Eosinophils (%) (Auto) 1.7 0.0-7.0 % Basophils (%) (Auto) 0.4 0.0-2.0 % Neutrophils # (Auto) 4.6 1.6-8.6 10 ^3/uL Lymphocytes # (Auto) 1.4 0.4-5.4 10 ^3/uL Monocytes # (Auto) 0.7 0-1.3 10 ^3/uL Eosinophils # (Auto) 0.1 0-0.8 10 ^3/uL Basophils # (Auto) 0 0-0.2 10 ^3/uL Nucleated Red Blood Cells 0.1 % Prothrombin Time 10.9 9.3-11.8 sec Prothrombin Time INR 1.03 0.9-1.15 Activated Partial Thromboplast Time 30.0 24.5-34.5 SEC Sodium Level 137 136-145 mmol/L Potassium Level 4.7 3.5-5.1 mmol/L Chloride Level 105 98-107 mmol/L Carbon Dioxide Level 22 20-31 mmol/L Anion Gap 10 5-15 Blood Urea Nitrogen 26 H 9-23 mg/dL Creatinine 1.11 0.700-1.30 mg/dL Glomerular Filtration Rate Calc 78 >90 mL/min BUN/Creatinine Ratio 23.4 H 10.0-20.0 Serum Glucose 174 H 74-106 mg/dL Calcium Level 9.6 8.7-10.4 mg/dL Total Bilirubin 0.6 0.2-1.0 mg/dL Aspartate Amino Transferase (AST) 20 13-40 U/L Alanine Aminotransferase (ALT) 19 7-40 U/L Alkaline Phosphatase 130 H 46-116 U/L Total Protein 7.2 5.7-8.2 g/dL Albumin 4.3 3.2-4.8 g/dL Time of 1ST Reevaluation: 19:35 Reevaluation 1ST: Unchanged Consultation: Surgery (Dr Foreman) Patient Education/Counseling: Diagnosis, Treatment Family Education/Counseling: No Family Present Departure 1 Departure Time of Disposition: 21:05 Impression: Primary Impression: Wound dehiscence, surgical Additional Impressions: Below knee amputation Diabetes mellitus with hyperglycemia Disposition: ADMITTED INPATIENT Condition: Guarded Comments Left BKA Wound Dehiscence Chief Complaint: Left below-knee amputation wound dehiscence History of Present Illness: 53-year-old male with history of type 2 diabetes who underwent left below-knee amputation (BKA) approximately one month ago presents with wound dehiscence. Patient had sutures removed from the BKA site yesterday. Today, while participating in physical therapy, the wound opened up. The patient was subs equently brought to the ED for evaluation. Of note, the patient had undergone a BKA revision by Dr. Foreman 1-2 weeks ago. Review of Systems: Limited review of systems due to focused evaluation. No fever or systemic symptoms reported. Medications: Not documented in booking agent Allergies: Not documented in booking agent Past Medical History: Type 2 Diabetes Mellitus Past Surgical History: Left below-knee amputation - 1 month ago Left BKA revision - approximately 1-2 weeks ago Physical Exam: LEFT LOWER EXTREMITY: - Complete wound dehiscence of left BKA site - Wound appears clean - No purulent discharge - No surrounding cellulitis Lab Results: WBC: Within normal limits Blood glucose: 174 mg/dL (elevated) Imaging and Other Relevant Results: Left BKA X-ray: No evidence of osteomyelitis Chest X-ray: Obtained as part of pre-op evaluation Medical Decision Making: Summary Statement: 53-year-old diabetic male with recent left BKA presents with wound dehiscence after suture removal, requiring surgical evaluation. Problem List: 1. Post-surgical wound dehiscence 2. Type 2 Diabetes Mellitus 3. Status post left BKA Differential Diagnosis: 1. Mechanical wound dehiscence 2. Surgical site infection 3. Poor wound healing due to diabetes ED Course: Patient evaluated in ED. Case discussed with Dr. Foreman from General Surgery. Decision made to admit for surgical management. Surgery will evaluate tomorrow for possible revision. Assessment and Plan: 1. Left BKA Wound Dehiscence - Admission to hospital service - General Surgery consultation with Dr. Foreman for evaluation tomorrow - Possible surgical revision needed 2. Type 2 Diabetes Mellitus - Blood sugar mildly elevated at 174 - Continue current diabetes management - Monitor glucose levels during admission Billing Information: ICD-10: T87.81 - Dehiscence of amputation stump ICD-10: E11.9 - Type 2 diabetes mellitus without complications ICD-10: Z89.511 - Acquired absence of left leg below knee Critical Care Note Critical Care Time?: Yes (35 min-critical care time only) Critical care comment: Total critical care time: Approximately 36 minutes Due to a high probability of clinically significant, life threatening deterioration, the patient required my highest level of preparedness to intervene emergently and I personally spent this critical care time directly and personally managing the patient. This critical care time included obtaining a history; examining the patient; pulse oximetry; ordering and review of studies; arranging urgent treatment with development of a management plan; evaluation of patient's response to treatment; frequent reassessment; and, discussions with other providers. This critical care time was performed to assess and manage the high probability of imminent, life-threatening deterioration that could result in multi-organ failure. It was exclusive of separately billable procedures and treating other patients. Stability Stability form required: No Heart Score Heart Score: Heart Score Response (Comments) Value History N/A 0 EKG N/A 0 Age N/A 0 Risk Factors N/A 0 Troponin N/A 0 Total 0 I personally scribed for ANA MARIA RICE MD ([email or web address]) on 09/26/24 at 19:40. Electronically submitted by Deon Woodward ([email or web address]). ANA MARIA RICE MD Sep 26, 2024 19:40
[2024-09-26 20:21] LABS: Basophils # (auto) 0 10 ^3/uL (0-0.2); Basophils % (auto) 0.4 % (0.0-2.0); Eosinophils # (auto) 0.1 10 ^3/uL (0-0.8); Hemoglobin 12.8 g/dL (13.5-17.5); Lymphocytes # (auto) 1.4 10 ^3/uL (0.4-5.4); Monocytes # (auto) 0.7 10 ^3/uL (0-1.3); Red Cell Distribution Width 17.8 % (11.8-14.3)
[2024-09-26 20:25] LABS: Eosinophils % (auto) 1.7 % (0.0-7.0); Hematocrit 38.3 % (41.0-53.0); Lymphocytes % (auto) 21.2 % (10.0-50.0); Mean Corpuscular Hemoglobin 29.4 pg (28.0-32.0); Mean Corpuscular Hgb Conc. 33.5 g/dL (32.0-36.0); Mean Corpuscular Volume 87.8 fL (80.0-100.0); Monocytes % (auto) 9.6 % (0.0-12.0); Neutrophils # (auto) 4.6 10 ^3/uL (1.6-8.6); Neutrophils % (auto) 67.1 % (37.0-80.0); Nucleated Red Blood Cells % 0.1 %; Platelet Count (auto) 253 10^3/uL (140-450); Red Blood Cells 4.36 10^6/uL (4.5-5.90); White Blood Cell 6.8 10^3/uL (4.4-10.8)
[2024-09-26 20:38] LABS: INR 1.03 (0.9-1.15); Prothrombin Time 10.9 sec (9.3-11.8)
[2024-09-26 20:42] LABS: Alanine Aminotransferase 19 U/L (7-40); Albumin 4.3 g/dL (3.2-4.8); Anion Gap 10 (5-15); Aspartate Aminotransferase 20 U/L (13-40); BUN/Creatinine Ratio 23.4 (10.0-20.0); Calcium 9.6 mg/dL (8.7-10.4); Carbon Dioxide 22 mmol/L (20-31); Chloride 105 mmol/L (98-107); Potassium 4.7 mmol/L (3.5-5.1); Sodium 137 mmol/L (136-145); Total Protein 7.2 g/dL (5.7-8.2)
[2024-09-26 20:43] LABS: Bilirubin, Total 0.6 mg/dL (0.2-1.0)
--- NOTE | 2024-09-26 20:50 | DVH ---
CHEST RADIOGRAPH Indication: pre-op wound dehiscence Technique: Single frontal view of the chest was obtained Comparison: XY CHEST PORTABLE on DOS: 08/26/24 FINDINGS: 1. Study is hypoventilatory. Heart size 2. is 3. within normal limits 4. Aorta 5. and pulmonary 6. arteries appear to be 7. slightly prominent but still within 8. normal limits 9. . Trachea 10. is midline chang is sharp 11. . 12. Pulmonary 13. vasculature in general are slightly 14. prominent 15. probably due 16. to patient's body habitus 17. . 18. IMPRESSION: 1. Hypoventilatory study with prominent pulmonary vessels likely due to patient's body habitus
--- NOTE | 2024-09-26 20:50 | DVH ---
CLINICAL INDICATION: s/p BKA, wound dehiscence TECHNIQUE: XY L KNEE 2V XRAY Comparison: None FINDINGS/IMPRESSION: : There is no evidence of acute fracture or dislocation. BKA. Soft-tissue edema and swelling, distally.
[2024-09-26 20:52] LABS: Alkaline Phosphatase 130 U/L (46-116); Blood Urea Nitrogen 26 mg/dL (9-23); Glucose 174 mg/dL (74-106)
[2024-09-26] MEDS ORDERED: DEXTROSE (50%) 50ML SYRG IV PRN (23:00)
[2024-09-26] MEDS ORDERED: ONDANSETRON HCL 4 MG/2 ML VIAL IV PRN (23:00)
[2024-09-26] MEDS ORDERED: ACETAMINOPHEN 325 MG TAB PO PRN ×2 (23:00)
--- NOTE | 2024-09-26 23:56 | DVHHPRES ---
History of Present Illness Resident Creating Document: COURTNEY PASTRANA RESIDENT History of Present Illness Patient is a 53-year-old male with past medical history of diabetes, heart failure with reduced ejection fraction 40%, necrotizing fasciitis and hypertension, who comes in due to wound dehiscence. Per patient, he underwent left BKA guillotine 1 month ago secondary to necrotizing fasciitis. On Monday09/24/2024 he had the stitches removed and was progressing with PT daily, however, today while undergoing PT he lost his balance and fell to his side which led to the opening of his wound. Denies any loss of consciousness, denies any head trauma, denies any other injuries. On physical examination of the wound patient is noted to have a well-approximated wound with clear margins and edges intact with dehiscence noted in the middle of the wound with a small necrotic focus, no purulence, no erythema. Knee x-ray showed soft tissue edema and swelling distally. Patient was admitted and started on IV levofloxacin, surgery was consulted. Past Medical History diabetes, heart failure with reduced ejection fraction 40%, necrotizing fasciitis and hypertension Past Surgical History L BKA guillotine 1 month ago Past Social History Smoking: Denies Alcohol: Occasionally, 1-2 drinks per month Drugs: Denies Allergy: Denies Review of Systems Constitutional: No: Fever, Chills, Sweats, Weakness, Malaise, Other Eyes: No: Pain, Vision change, Conjunctivae inflammation, Eyelid inflammation, Other, Redness ENT: No: Ear pain, Ear discharge, Nose pain, Nose discharge, Nose congestion, Mouth pain, Mouth swelling, Throat pain, Throat swelling, Other Respiratory: No: Cough, Dry, Shortness of breath, SOB with excertion, Wheezing, Hemoptysis, Pleuritic Pain, Sputum, Wheezing, Other Cardiovascular: No: Chest Pain, Palpitations, Orthopnea, Paroxysmal Noc. Dyspnea, Edema, Lt Headedness, Other Gastrointestinal: No: Nausea, Vomiting, Abdominal Pain, Diarrhea, Constipation, Melena, Hematochezia, Other Genitourinary: No Dysuria, No Frequency, No Incontinence, No Hematuria, No Retention, No Other Musculoskeletal: No: other, neck pain, shoulder pain, arm pain, back pain, hand pain, leg pain, foot pain Skin: No: Rash, Lesions, Jaundice, Bruising, Other Neurological: No: Weakness, Numbness, Incoordination, Change in speech, Confusion, Seizures, Other Allergies: Coded Allergies: NO KNOWN ALLERGIES (Unverified , 08/23/24) Medications Current Medications Medications Dose Ordered Sig/Rosana Route Start Time Stop Time Status Last Admin Dose Admin Acetaminophen 325 mg Q4HP PRN PO 09/26/24 23:00 UNV Ondansetron HCl 4 mg Q4HP PRN IV 09/26/24 23:00 Diagnostic Test (Pha) 1 strip Q6HR 09/27/24 00:00 Insulin Human Regular Q6HR SC 09/27/24 00:00 Dextrose 50 ml UD PRN IV 09/26/24 23:00 Acetaminophen 650 mg Q8HR PRN PO 09/26/24 23:00 Aspirin 81 mg DAILY PO 09/26/24 23:00 Carvedilol 12.5 mg BID PO 09/26/24 23:00 Atorvastatin Calcium 40 mg DAILY PO 09/27/24 10:00 Patient Own Medication 25 mg DAILY PO 09/26/24 23:00 UNV Exam Vital Signs Vital Signs Date Time Temp Pulse Resp B/P (MAP) Pulse Ox O2 Delivery O2 Flow Rate FiO2 09/26/24 19:26 98.9 67 20 185/78 (113) 100 98.9 General Appearance: Alert, Oriented X3, Cooperative, No acute distress HEENT: Atraumatic, PERRLA, EOMI, Mucous membr. moist/pink Respiratory: Clear to auscultation, Normal air movement Cardiovascular: Regular rate, Normal S1, Normal S2 Abdominal: Normal bowel sounds, Soft, No tenderness Extremities: Other (Trace lower extremity edema, cool bilateral lower extremities to touch) Neuro: Normal speech, Strength at 5/5 X4 ext, Sensation intact Psych/Mental Status: Mental status NL, Mood NL Labs/Xrays Labs Test 09/26/24 23:12 09/26/24 20:08 Range/Units Lactic Acid Level 1.5 0.4-2.0 mmol/L White Blood Count 6.8 4.4-10.8 10^3/uL Red Blood Count 4.36 L 4.5-5.90 10^6/uL Hemoglobin 12.8 L 13.5-17.5 g/dL Hematocrit 38.3 L 41.0-53.0 % Mean Corpuscular Volume 87.8 80.0-100.0 fL Mean Corpuscular Hemoglobin 29.4 28.0-32.0 pg Mean Corpuscular Hemoglobin Concent 33.5 32.0-36.0 g/dL Red Cell Distribution Width 17.8 H 11.8-14.3 % Platelet Count 253 140-450 10^3/uL Mean Platelet Volume 7.8 6.9-10.8 fL Neutrophils (%) (Auto) 67.1 37.0-80.0 % Lymphocytes (%) (Auto) 21.2 10.0-50.0 % Monocytes (%) (Auto) 9.6 0.0-12.0 % Eosinophils (%) (Auto) 1.7 0.0-7.0 % Basophils (%) (Auto) 0.4 0.0-2.0 % Neutrophils # (Auto) 4.6 1.6-8.6 10 ^3/uL Lymphocytes # (Auto) 1.4 0.4-5.4 10 ^3/uL Monocytes # (Auto) 0.7 0-1.3 10 ^3/uL Eosinophils # (Auto) 0.1 0-0.8 10 ^3/uL Basophils # (Auto) 0 0-0.2 10 ^3/uL Nucleated Red Blood Cells 0.1 % Prothrombin Time 10.9 9.3-11.8 sec Prothrombin Time INR 1.03 0.9-1.15 Activated Partial Thromboplast Time 30.0 24.5-34.5 SEC Sodium Level 137 136-145 mmol/L Potassium Level 4.7 3.5-5.1 mmol/L Chloride Level 105 98-107 mmol/L Carbon Dioxide Level 22 20-31 mmol/L Anion Gap 10 5-15 Blood Urea Nitrogen 26 H 9-23 mg/dL Creatinine 1.11 0.700-1.30 mg/dL Glomerular Filtration Rate Calc 78 >90 mL/min BUN/Creatinine Ratio 23.4 H 10.0-20.0 Serum Glucose 174 H 74-106 mg/dL Calcium Level 9.6 8.7-10.4 mg/dL Total Bilirubin 0.6 0.2-1.0 mg/dL Aspartate Amino Transferase (AST) 20 13-40 U/L Alanine Aminotransferase (ALT) 19 7-40 U/L Alkaline Phosphatase 130 H 46-116 U/L Total Protein 7.2 5.7-8.2 g/dL Albumin 4.3 3.2-4.8 g/dL Assessment/Plan Assessment/Plan S/p left BKA guillotine, wound dehiscence History of necrotizing fasciitis - CXR: Hypoventilatory study with prominent pulmonary vessels likely due to pat ient's body habitus - left knee x-ray: No evidence of acute fracture or dislocation. Soft tissue edema and swelling distally. - IV levofloxacin, IV vancomycin per pharmacy - consulted surgery - NPO after midnight - ordered blood cultures, wound cultures, MRSA nares and lactic acid Heart failure with reduced ejection fraction 40%, currently stable Hypertension - resumed home medication atorvastatin, aspirin, carvedilol, Entresto, spironolactone and Jardiance Type 2 diabetes, uncontrolled, insulin dependent - mild sliding scale insulin NPO History of DVT Hypercoagulable state secondary to above - currently holding home medication apixaban as patient likely to undergo possible I and D tomorrow - therapeutic Lovenox to be considered after procedure completed Goals of care: Full code, discussed for >16 minutes on 09/26/24 Plan discussed with patient Plan discussed with Dr. Cleaning Plan discussed with: Patient, Spouse, Son, Other (RN) My Orders Orders - COURTNEY PASTRANA RESIDENT Procedure Category Date Status Time Admit ADMIT 09/26/24 Transmitted 22:54 Allergies MARIA 09/26/24 In Process 22:54 Code Status CODE 09/26/24 Transmitted 22:54 Ondansetron Hcl PHA 09/26/24 In Process (Zofran) 23:00 Complete Blood Count LAB 09/27/24 Verified 04:00 Comprehensive LAB 09/27/24 Verified Metabolic Panel 04:00 Pt Request For Service PT 09/26/24 Logged 22:54 Condition: Unstable MARIA 09/26/24 In Process 22:54 Notify Md Of Changes MARIA 09/26/24 In Process From Base 22:54 Wound Culture W/ Gs JORDEN 09/26/24 Logged 22:54 Lactic Acid W/ Reflex LAB 09/26/24 In Process Order 22:54 Glucose Blood PHA 09/27/24 In Process (Accu-Chek Comfort 00:00 Insulin R (Human) PHA 09/27/24 In Process (Insulin R) 00:00 Dextrose 50% Syringe PHA 09/26/24 In Process 23:00 Electrocardigram EKG 09/26/24 Logged 22:54 Acetaminophen Tablet PHA 09/26/24 In Process (Tylenol Tablet) 23:00 Aspirin Enteric PHA 09/26/24 In Process Coated Tablet 23:00 Carvedilol Tablet PHA 09/26/24 In Process (Coreg Tablet) 23:00 (Nf) Empagliflozin PHA 09/26/24 Pending (Jardiance) 23:00 Atorvastatin (Lipitor) PHA 09/27/24 In Process 10:00 Date of Service: Sep 26, 2024 Billing Provider: TOLU CLEANING MD Common Visit Codes: [id number] INP/OBS CARE (HIGH) COURTNEY PASTRANA RESIDENT Sep 26, 2024 23:55 QUINTIN YANEZ RESIDENT Sep 27, 2024 00:21
[2024-09-27] VITALS (7 sets, daily range): BP systolic 148–156; BP diastolic 65–76; PULSE 61–65; RESP 16–18; TEMP 97.9–98; O2SAT 96–100
[2024-09-27] MEDS: ACCU-CHEK COMFORT CURVE STRIP VI SCH (00:36)
[2024-09-27] MEDS: CARVEDILOL 12.5 MG TAB PO SCH (00:45)
[2024-09-27] MEDS: levoFLOXacin 500MG 100 ML IV SCH (00:45)
[2024-09-27] MEDS: ASPirin-EC 81 mg tab PO SCH (00:45)
[2024-09-27] MEDS: InsuLIN REG 1unit/0.01ml Soln (100units/ml) SC SCH (00:45)
[2024-09-27 05:33] LABS: Urine Bacteria None Seen /hpf (None Seen)
[2024-09-27 05:52] LABS: Basophils # (auto) 0 10 ^3/uL (0-0.2); Basophils % (auto) 0.4 % (0.0-2.0); Eosinophils # (auto) 0.1 10 ^3/uL (0-0.8); Eosinophils % (auto) 1.6 % (0.0-7.0); Hematocrit 37.5 % (41.0-53.0); Hemoglobin 12.4 g/dL (13.5-17.5); Lymphocytes # (auto) 1.8 10 ^3/uL (0.4-5.4); Lymphocytes % (auto) 26.6 % (10.0-50.0); Mean Corpuscular Hemoglobin 29.2 pg (28.0-32.0); Mean Corpuscular Hgb Conc. 33.2 g/dL (32.0-36.0); Monocytes # (auto) 0.7 10 ^3/uL (0-1.3); Monocytes % (auto) 10.3 % (0.0-12.0); Neutrophils # (auto) 4.1 10 ^3/uL (1.6-8.6); Neutrophils % (auto) 61.1 % (37.0-80.0); Platelet Count (auto) 230 10^3/uL (140-450); Red Blood Cells 4.26 10^6/uL (4.5-5.90); Red Cell Distribution Width 17.9 % (11.8-14.3); White Blood Cell 6.8 10^3/uL (4.4-10.8)
[2024-09-27 06:01] LABS: Opiate Scree,Urine Neg (NEGATIVE); Phencyclidine Screen, Urine Neg (NEGATIVE)
[2024-09-27 06:04] LABS: Alanine Aminotransferase 18 U/L (7-40); Albumin 4.1 g/dL (3.2-4.8); Alkaline Phosphatase 107 U/L (46-116); Anion Gap 8 (5-15); Aspartate Aminotransferase 16 U/L (13-40); BUN/Creatinine Ratio 23.9 (10.0-20.0); Bilirubin, Total 0.7 mg/dL (0.2-1.0); Blood Urea Nitrogen 22 mg/dL (9-23); Calcium 9.6 mg/dL (8.7-10.4); Carbon Dioxide 24 mmol/L (20-31); Chloride 104 mmol/L (98-107); HDL Cholesterol 53 mg/dL (40-59); Magnesium 2.1 mg/dL (1.6-2.6); Phosphorus 3.9 mg/dL (2.4-5.1); Potassium 4.4 mmol/L (3.5-5.1); Sodium 136 mmol/L (136-145)
[2024-09-27 06:16] LABS: Cholesterol 204 mg/dL (< 200); Glucose 121 mg/dL (74-106); LDL Cholesterol 110 mg/dL (< 100); Triglycerides 211 mg/dL (< 150)
[2024-09-27 06:16] LABS: Amphetamine Screen, Urine Neg (NEGATIVE); Barbiturate Scree,Urine Neg (NEGATIVE); Benzodiazephine Screen, Urine Neg (NEGATIVE); Cannabinoid Screen, Urine Neg (NEGATIVE); Cocaine Screen, Urine Neg (NEGATIVE)
[2024-09-27 06:57] LABS: Urine Blood Negative /uL (Negative); Urine Clarity Clear (Clear); Urine Color Light-Yellow (Yellow); Urine Protein, UAD TRACE (Negative); Urine Specific Gravity 1.026 (1.001-1.035); Urine Squamous Epithelial Cell None Seen /hpf (<5); Urine Urobilinogen Normal (Negative); Urine WBC 1 /HPF (0-3)
[2024-09-27 07:33] LABS: Erythrocyte Sedimentation Rate 16 mm/hr (0-20)
[2024-09-27] MEDS ORDERED: VANCOMYCIN PER PHARMACY 0 MG IV SCH (08:00)
[2024-09-27] MEDS: VANCOMYCIN 1GM/200ML PM 250 ML IV SCH (09:01)
[2024-09-27] MEDS ORDERED: ATORVASTATIN 20 MG TAB PO SCH (10:00)
[2024-09-27] MEDS ORDERED: Sacubitril-Valsartan (Entresto 49-51 mg) TABLET PO SCH (10:00)
[2024-09-27] MEDS: SPIRONOLACTONE 25 MG TAB PO SCH (10:27)
[2024-09-27 11:06] LABS: Basophils # (auto) 0 10 ^3/uL (0-0.2); Basophils % (auto) 0.4 % (0.0-2.0); Eosinophils # (auto) 0.1 10 ^3/uL (0-0.8); Eosinophils % (auto) 1.4 % (0.0-7.0); Hematocrit 38.3 % (41.0-53.0); Hemoglobin 12.5 g/dL (13.5-17.5); Lymphocytes # (auto) 1.6 10 ^3/uL (0.4-5.4); Mean Corpuscular Hemoglobin 29.5 pg (28.0-32.0); Mean Corpuscular Hgb Conc. 32.7 g/dL (32.0-36.0); Mean Corpuscular Volume 90.1 fL (80.0-100.0); Monocytes # (auto) 0.8 10 ^3/uL (0-1.3); Monocytes % (auto) 11.2 % (0.0-12.0); Neutrophils # (auto) 4.7 10 ^3/uL (1.6-8.6); Nucleated Red Blood Cells % 0.2 %; Platelet Count (auto) 207 10^3/uL (140-450); Red Blood Cells 4.25 10^6/uL (4.5-5.90); Red Cell Distribution Width 17.7 % (11.8-14.3); White Blood Cell 7.2 10^3/uL (4.4-10.8)
[2024-09-27 11:09] LABS: Chloride 103 mmol/L (98-107); Potassium 4.4 mmol/L (3.5-5.1)
[2024-09-27 11:10] LABS: Anion Gap 8 (5-15); Calcium 9.7 mg/dL (8.7-10.4); Carbon Dioxide 23 mmol/L (20-31)
[2024-09-27 11:15] LABS: BUN/Creatinine Ratio 20.3 (10.0-20.0); Blood Urea Nitrogen 16 mg/dL (9-23)
[2024-09-27 11:16] LABS: Glucose 120 mg/dL (74-106); Sodium 134 mmol/L (136-145)
--- NOTE | 2024-09-27 16:32 | DVHPNRES ---
Progress Note Date Seen: Sep 27, 2024 Resident Creating Document: GURJIT HOOKS RESIDENT Medical Necessity Reason Pt with a Central, PICC or Fol: No Subjective Review of Systems Patient is a 53-year-old male with past medical history of diabetes, heart failure with reduced ejection fraction 40%, necrotizing fasciitis and hypertension, who comes in due to wound dehiscence. Per patient, he underwent left BKA guillotine 1 month ago secondary to necrotizing fasciitis. On Monday09/24/2024 he had the stitches removed and was progressing with PT daily, however, today while undergoing PT he lost his balance and fell to his side which led to the opening of his wound. Denies any loss of consciousness, denies any head trauma, denies any other injuries. On physical examination of the wound patient is noted to have a well-approximated wound with clear margins and edges intact with dehiscence noted in the middle of the wound with a small necrotic focus, no purulence, no erythema. Knee x-ray showed soft tissue edema and swelling distally. Patient was admitted and started on IV levofloxacin, surgery was consulted. Initial lab workup revealed HGB A1c 5.9, alkaline phosphatase 130, triglyceride 211, cholesterol 204, LDL 110. Past Medical History-diabetes, heart failure with reduced ejection fraction 40%, necrotizing fasciitis and hypertension Past Surgical History-L BKA guillotine 1 month ago Past Social History Smoking: Denies Alcohol: Occasionally, 1-2 drinks per month Drugs: Denies Allergy: Denies Patient was seen today at the bedside. Cardiovascular- deny acute chest pain or shortness of breath or cough or palpitation Respiratory denies cough or short of breath or wheezing Gastrointestinal- denies any rectal bleeding, nausea or vomiting Musculoskeletal-denies acute joint swelling or tenderness or redness Neurological- denies acute dysarthria, dysphagia, change in vision Psychiatry- denies depression or SI or HI Skin- denies acute rash or purpura Patient was seen today for clinical evaluation. Labs and chart reviewed. Patient with left below-knee amputation wound dehiscence. No acute discharge or bleeding. Patient was seen by surgery team. Recommended for wound VAC. Discontinued vancomycin. Objective vital signs Vital Sign Date Time Temp Pulse Resp B/P (MAP) Pulse Ox O2 Delivery O2 Flow Rate FiO2 09/27/24 13:00 98.0 65 16 156/76 (102) 98 98.0 09/27/24 12:34 Room Air* 0 21 Total Intake and Output 09/26/24 09/26/24 09/27/24 15:00 23:00 07:00 Intake Total 100 ml Balance 100 ml medications Current Medications Medications Dose Ordered Sig/Rosana Route Start Time Stop Time Status Last Admin Dose Admin Acetaminophen 325 mg Q4HP PRN PO 09/26/24 23:00 UNV Ondansetron HCl 4 mg Q4HP PRN IV 09/26/24 23:00 Diagnostic Test (Pha) 1 strip Q6HR 09/27/24 00:00 09/27/24 05:54 1 STRIP Insulin Human Regular Q6HR SC 09/27/24 00:00 09/27/24 00:45 4 UNITS Dextrose 50 ml UD PRN IV 09/26/24 23:00 Acetaminophen 650 mg Q8HR PRN PO 09/26/24 23:00 Aspirin 81 mg DAILY PO 09/26/24 23:00 09/27/24 10:27 81 MG Carvedilol 12.5 mg BID PO 09/26/24 23:00 09/27/24 00:45 12.5 MG Patient Own Medication 25 mg DAILY PO 09/26/24 23:00 Levofloxacin/ Dextrose 100 ml @ 100 mls/hr DAILY IV 09/27/24 00:00 09/27/24 00:45 100 MLS/HR Hydralazine HCl 10 mg Q6HP PRN IV 09/27/24 00:15 Spironolactone 25 mg DAILY PO 09/27/24 10:00 09/27/24 10:27 25 MG Atorvastatin Calcium 40 mg HS PO 09/27/24 22:00 Sacubitril/ Valsartan 2 tab BID PO 09/27/24 22:00 Apixaban 5 mg BID PO 09/27/24 22:00 Examination General examination- HEENT- PEERLA, no acute nasal discharge Cardiovascular- S1-S2 audible, rate and rhythm regular, no murmur Respiratory- CTAB, no wheeze or rhonchi Gastrointestinal-nontender, bowel sound+. Nondistended Musculoskeletal-no acute joint swelling or tenderness or redness Lower extremity- Neurological- cranial nerves intact, no acute dysarthria or dysphagia Psychiatry- denies depression or SI or HI Skin- no acute rash or purpura laboratory and microbiology Laboratory Tests 09/27/24 10:47 Test 09/27/24 10:47 Range/Units Serum Glucose 120 H 74-106 mg/dL Problem List/Assessment/Plan Problem List/Assessment/Plan Assessment and plan S/p left ALEXIS ivey, wound dehiscence History of necrotizing fasciitis - CXR: Hypoventilatory study with prominent pulmonary vessels likely due to patient's body habitus - left knee x-ray: No evidence of acute fracture or dislocation. Soft tissue edema and swelling distally. - IV levofloxacin as prescribed - consulted surgery -pending blood culture, wound culture, MRSA screening report. Heart failure with reduced ejection fraction 40%, currently stable Hypertension -continue aspirin 80 mg p.o. daily -continue carvedilol 12.5 mg p.o. b.i.d. -continue Entresto as prescribed -continue spironolactone 25 mg p.o. daily -continue atorvastatin 40 mg p.o. q.h.s. Type 2 diabetes, uncontrolled, insulin dependent - mild sliding scale insulin History of DVT Hypercoagulable state secondary to above - continue Eliquis 5 mg b.i.d. - Hyperlipidemia -continue atorvastatin 40 mg p.o. q.h.s. Vitamin-D deficiency Continue ergo cholecalciferol as prescribed Diabetic diet Goals of care, Code status ; discussed with >15 minutes PUD prophylaxis: Pantoprazole DVT prophylaxis: Eliquis Plan discussed with Dr. Gleason , nursing staff, Total time spent on patient evaluation, chart review, assessment and plan, discussion discussion >35 minutes Plan discussed with: Patient, Other (RN) My Orders My Orders Orders - GURJIT HOOKS Procedure Category Date Status Time Sacubitril-Valsartan PHA 09/27/24 In Process (Entresto 24-26 Mg 22:00 Apixaban (Eliquis) PHA 09/27/24 In Process 22:00 Consistent DIET 09/27/24 Transmitted Carb(Ccho)Diabetes Lunch Wound Vac MARIA 09/27/24 In Process 11:00 Wound Culture W/ Gs JORDEN 09/27/24 Logged 13:28 GURJIT HOOKS Sep 27, 2024 16:32
[2024-09-27] MEDS: ERGOCALCIFEROL 50,000 UNIT(1.25MG) CAP PO SCH (17:34)
[2024-09-27] MEDS: PANTOPRAZOLE 40 MG/10 ML VIAL INJ IV ONE (17:34)
[2024-09-27] MEDS: SACUBITRIL-VALSARTAN 24mg/26mg TAB PO ONE (17:34)
[2024-09-27] MEDS: SACUBITRIL-VALSARTAN 24mg/26mg TAB PO SCH (21:41)
[2024-09-27] MEDS: APIXABAN 5 MG TAB PO SCH (21:42)
[2024-09-27] MEDS: ATORVASTATIN 20 MG TAB PO SCH (21:42)
[2024-09-27] MEDS: hydrALAZINE HCL 20 MG/ML VL IV PRN (23:34)
[2024-09-28] VITALS (7 sets, daily range): BP systolic 130–162; BP diastolic 68–80; PULSE 60–74; RESP 16–21; TEMP 97.7–98.5; O2SAT 95–99
[2024-09-28 08:26] LABS: Chloride 105 mmol/L (98-107); Sodium 137 mmol/L (136-145)
[2024-09-28 08:27] LABS: Anion Gap 10 (5-15); Calcium 9.9 mg/dL (8.7-10.4); Carbon Dioxide 22 mmol/L (20-31)
[2024-09-28 08:32] LABS: BUN/Creatinine Ratio 19.3 (10.0-20.0); Blood Urea Nitrogen 17 mg/dL (9-23)
[2024-09-28 08:39] LABS: Glucose 122 mg/dL (74-106)
--- NOTE | 2024-09-28 10:07 | DVHDSRES ---
Discharge Summary Date of Admission Resident Creating Document: GURJIT HOOKS RESIDENT Sep 26, 2024 at 22:54 Date of Discharge: Sep 28, 2024 Admitting Diagnosis Status post fall, wound dehiscence Labs/Diagnostic Data: Laboratory Results Test 09/28/24 07:26 09/28/24 05:22 09/27/24 10:47 09/27/24 05:31 Sodium Level 137 mmol/L (136-145) Potassium Level 4.0 mmol/L (3.5-5.1) Chloride Level 105 mmol/L (98-107) Carbon Dioxide Level 22 mmol/L (20-31) Anion Gap 10 (5-15) Blood Urea Nitrogen 17 mg/dL (9-23) Creatinine 0.88 mg/dL (0.700-1.30) Glomerular Filtration Rate Calc 102 mL/min (>90) BUN/Creatinine Ratio 19.3 (10.0-20.0) Serum Glucose 122 mg/dL (74-106) Calcium Level 9.9 mg/dL (8.7-10.4) POC Glucose 140 mg/dl (70-106) White Blood Count 7.2 10^3/uL (4.4-10.8) Red Blood Count 4.25 10^6/uL (4.5-5.90) Hemoglobin 12.5 g/dL (13.5-17.5) Hematocrit 38.3 % (41.0-53.0) Mean Corpuscular Volume 90.1 fL (80.0-100.0) Mean Corpuscular Hemoglobin 29.5 pg (28.0-32.0) Mean Corpuscular Hemoglobin Concent 32.7 g/dL (32.0-36.0) Red Cell Distribution Width 17.7 % (11.8-14.3) Platelet Count 207 10^3/uL (140-450) Mean Platelet Volume 7.5 fL (6.9-10.8) Neutrophils (%) (Auto) 65.0 % (37.0-80.0) Lymphocytes (%) (Auto) 22.0 % (10.0-50.0) Monocytes (%) (Auto) 11.2 % (0.0-12.0) Eosinophils (%) (Auto) 1.4 % (0.0-7.0) Basophils (%) (Auto) 0.4 % (0.0-2.0) Neutrophils # (Auto) 4.7 10 ^3/uL (1.6-8.6) Lymphocytes # (Auto) 1.6 10 ^3/uL (0.4-5.4) Monocytes # (Auto) 0.8 10 ^3/uL (0-1.3) Eosinophils # (Auto) 0.1 10 ^3/uL (0-0.8) Basophils # (Auto) 0 10 ^3/uL (0-0.2) Nucleated Red Blood Cells 0.2 % Urine Color Light-yellow (Yellow) Urine Clarity Clear (Clear) Urine pH 5.0 (5.0-9.0) Urine Specific [place] 1.026 (1.001-1.035) Urine Protein Trace (Negative) Urine Ketones Negative (Negative) Urine Blood Negative /uL (Negative) Urine Nitrite Negative (Negative) Urine Bilirubin Negative (Negative) Urine Urobilinogen Normal mg/dL (Negative) Urine Leukocyte Esterase Negative /uL (Negative) Urine RBC None seen /hpf (0 - 3) Urine Microscopic WBC 1 /HPF (0-3) Urine Squamous Epithelial Cells None seen /hpf (<5) Urine Bacteria None seen /hpf (None Seen) Urine Glucose 4+ mg/dL (Normal) Urine Opiates Screen Neg (NEGATIVE) Urine Fentanyl Screen Neg (NEGATIVE) Urine Barbiturates Screen Neg (NEGATIVE) Urine Phencyclidine Screen Neg (NEGATIVE) Urine Amphetamines Screen Neg (NEGATIVE) Urine Benzodiazepines Screen Neg (NEGATIVE) Urine Cocaine Screen Neg (NEGATIVE) Urine Cannabinoids Screen Neg (NEGATIVE) Test 09/27/24 05:05 09/26/24 23:12 09/26/24 20:08 Erythrocyte Sedimentation Rate 16 mm/hr (0-20) Hemoglobin A1c 5.9 % A1C (<5.7) Phosphorus Level 3.9 mg/dL (2.4-5.1) Magnesium Level 2.1 mg/dL (1.6-2.6) Total Bilirubin 0.7 mg/dL (0.2-1.0) Aspartate Amino Transferase (AST) 16 U/L (13-40) Alanine Aminotransferase (ALT) 18 U/L (7-40) Alkaline Phosphatase 107 U/L (46-116) C-Reactive Protein High Sensitivity 0.10 mg/dL (<1.0) Total Protein 7.0 g/dL (5.7-8.2) Albumin 4.1 g/dL (3.2-4.8) Triglycerides Level 211 mg/dL (< 150) Cholesterol Level 204 mg/dL (< 200) LDL Cholesterol 110 mg/dL (< 100) HDL Cholesterol 53 mg/dL (40-59) Vitamin B12 Level 355 pg/mL (211-911) Vitamin D 25-Hydroxy 27.6 ng/mL (30.0-100) Thyroid Stimulating Hormone (TSH) 0.80 uIU/mL (0.55-4.78) Lactic Acid Level 1.5 mmol/L (0.4-2.0) Prothrombin Time 10.9 sec (9.3-11.8) Prothrombin Time INR 1.03 (0.9-1.15) Activated Partial Thromboplast Time 30.0 SEC (24.5-34.5) Other Laboratory Tests 09/28/24 07:26 09/27/24 10:47 Brief Hx & Hospital Course: Patient is a 53-year-old male with past medical history of diabetes, heart failure with reduced ejection fraction 40%, necrotizing fasciitis and hypertension, who comes in due to wound dehiscence. Per patient, he underwent left BKA guillotine 1 month ago secondary to necrotizing fasciitis. On Monday09/24/2024 he had the stitches removed and was progressing with PT daily, however, today while undergoing PT he lost his balance and fell to his side which led to the opening of his wound. Denies any loss of consciousness, denies any head trauma, denies any other injuries. On physical examination of the wound patient is noted to have a well-approximated wound with clear margins and edges intact with dehiscence noted in the middle of the wound with a small necrotic focus, no purulence, no erythema. Knee x-ray showed soft tissue edema and swelling distally. Patient was admitted and started on IV levofloxacin, surgery was consulted. Initial lab workup revealed HGB A1c 5.9, alkaline phosphatase 130, triglyceride 211, cholesterol 204, LDL 110. Hospital course-Patient is a 53-year-old male with past medical history of diabetes, heart failure with reduced ejection fraction 40%, necrotizing fasciitis and hypertension, who comes in due to wound dehiscence. Per patient, he underwent left BKA guillotine 1 month ago secondary to necrotizing fasciitis. On Monday09/24/2024 he had the stitches removed and was progressing with PT daily, however, today while undergoing PT he lost his balance and fell to his side which led to the opening of his wound. Denies any loss of consciousness, denies any head trauma, denies any other injuries. On physical examination of the wound patient is noted to have a well-approximated wound with clear margins and edges intact with dehiscence noted in the middle of the wound with a small necrotic focus, no purulence, no erythema. Knee x-ray showed soft tissue edema and swelling distally. Patient was admitted and started on IV levofloxacin, surgery was consulted. Initial lab workup revealed HGB A1c 5.9, alkaline phosphatase 130, triglyceride 211, cholesterol 204, LDL 110. Patient was seen by surgery, recommended for placement of wound VAC. Patient was cleared by surgery to be discharge with the wound VAC. Patient was scheduled to be follow up with the surgery outpatient. Patient was hemodynamically stable on discharge. Assessment S/p left BKA guillotine, wound dehiscence Status post fall, no acute head injury or bleeding History of necrotizing fasciitis Heart failure with reduced ejection fraction 40%, currently stable Hypertension Type 2 diabetes, uncontrolled, insulin dependent History of DVT Hypercoagulable state secondary to above - Hyperlipidemia Vitamin-D deficiency Discharge plan Continue with the wound VAC as recommended Please resume home medications Please follow up with your surgeon in 1-2 weeks as per surgery recommendation Operations or Procedures [place] [address] Ph: [phone] DIAGNOSTIC IMAGING Diagnostic Imaging Report : [id number] Signed PATIENT: ADAM RIVAS AACCT: [id number] UNIT: [id number] : 1970 LOC: ER ROOM / BED: / AGE / SEX: 53 / M ADM STATUS: REG ER SERVICE 99 ORDERING PHYSICIAN: ANA MARIA RICE MD PROCEDURE(s): LKNE2 - L KNEE 2V XRAY REASON: s/p BKA, wound dehiscence ORDER NUMBER(s): [id number], ACCESSION NUMBER(s): [id number] CLINICAL INDICATION: s/p BKA, wound dehiscence TECHNIQUE: XY L KNEE 2V XRAY Comparison: None FINDINGS/IMPRESSION: : There is no evidence of acute fracture or dislocation. BKA. Soft-tissue edema and swelling, distally. ATED BY: ALEX CHAVEZ MD DICTATED DATE/TIME: 09/26/242047 SIGNED BY: ALEX CHAVEZ MD SIGNED DATE/TIME: 09/26/242047 CC: [place] [address] Ph: [phone] DIAGNOSTIC IMAGING Diagnostic Imaging Report : [id number] Signed PATIENT: ADAM RIVAS AACCT: [id number] UNIT: [id number] : 1970 LOC: ER ROOM / BED: / AGE / SEX: 53 / M ADM STATUS: REG ER SERVICE 99 ORDERING PHYSICIAN: ANA MARIA RICE MD PROCEDURE(s): CXR1 - CHEST XRAY 1 VIEW REASON: pre-op wound dehiscence ORDER NUMBER(s): [id number], ACCESSION NUMBER(s): [id number] CHEST RADIOGRAPH Indication: pre-op wound dehiscence Technique: Single frontal view of the chest was obtained Comparison: XY CHEST PORTABLE on DOS: 08/26/24 FINDINGS: 1. Study is hypoventilatory. Heart size 2. is 3. within normal limits 4. Aorta 5. and pulmonary 6. arteries appear to be 7. slightly prominent but still within 8. normal limits 9. . Trachea 10. is midline chang is sharp 11. . 12. Pulmonary 13. vasculature in general are slightly 14. prominent 15. probably due 16. to patient's body habitus 17. . 18. IMPRESSION: 1. Hypoventilatory study with prominent pulmonary vessels likely due to patient's body habitus ATED BY: RENNY LE MD DICTATED DATE/TIME: 09/26/242047 SIGNED BY: RENNY LE MD SIGNED DATE/TIME: 09/26/242047 CC: Condition at Discharge: Stable Final Diagnosis/Problems List S/p left BKA guillotine, wound dehiscence Status post fall, no acute head injury or bleeding History of necrotizing fasciitis Heart failure with reduced ejection fraction 40%, currently stable Hypertension Type 2 diabetes, uncontrolled, insulin dependent History of DVT Hypercoagulable state secondary to above - Hyperlipidemia Vitamin-D deficiency Discharge Disposition: Home Discharge Instruct/Medications Diet: Consistent carbohydrate, Cardiac 2g Na,low cholest Follow Up/Referral: Continue with the wound VAC as recommended Please resume home medications Please follow up with your surgeon in 1-2 weeks as per surgery recommendation Medications: Continue with the wound VAC as recommended Please resume home medications Please follow up with your surgeon in 1-2 weeks as per surgery recommendation Discharge Statement: "Patient was advised to return to the ER or call 911 if any headaches, dizziness, shortness of breath, chest pain, abdominal pain, bleeding, fevers, or worsening of medical condition. Patient was counseled about treatment plan, medications, possible side effects, patientverbalized understanding. All questions were answered to the best of my ability. This discharge took greater then 30 minutes in planning, reviewing documentation, counseling the patient, and discussing with other team members." ASSESSMENT ASSESSMENT Assessment GURJIT HOOKS RESIDENT Sep 28, 2024 10:07
[2024-09-28] MEDS: PANTOPRAZOLE 40 MG/10 ML VIAL INJ IV SCH (10:15)
--- NOTE | 2024-09-28 12:16 | DVHINCON2 ---
Date of service: Sep 27, 2024 Reason for Consultation left bka wound dehiscence History of Present Illness HPI A 53-year-old male patient underwent a left below-knee amputation (BKA) one month ago due to necrotizing fasciitis. He was seen on September 24, 2024, for the removal of fady. During a recent physical therapy appointment, the patient lost his balance and fell, resulting in an injury to his stump and the opening of his surgical wound. An examination revealed intact wound with dehiscence in the middle of the wound, but there was no purulent drainage or erythema present. The patient will be admitted for application of a wound vacuum. Home Meds Active Scripts Levofloxacin Hemihydrate (LEVOFLOXACIN) 500 Mg Tab, 1 TAB PO DAILY for 14 Days, #14 TAB Prov:BELLE VANEGAS MD 09/03/24 Ibuprofen Micronized (MOTRIN TABLET) 600 Mg Tb, 600 MG PO TID PRN for 20 Days, #60 TAB *Black box warning-NSAIDS can increase risk of [place] & hypertension, GI irritation, ulceration, bleed, perferation. Do not use post cardiac surgery. Use short duration/lowest effective dose. Prov:BELLE VANEGAS MD 09/03/24 Acetaminophen (Tylenol) 325 Mg Tb, 650 MG PO Q8HR PRN for 30 Days, #180 TAB Prov:BELLE VANEGAS MD 09/03/24 Insulin Lispro (Insulin Lispro Kwikpen) 100 Unit/Ml Inj, 3 UNIT SC AC for 90 Days, #90 INJ 1 Refill if blood glucose <70 do not take if blood glucose 71-150 take 2 units if blood glucose 151-200 take 3 units if blood glucose 201-250 take 4 units if blood glucose 251-300 take 5 units Prov:BELLE VANEGAS MD 09/03/24 Insulin Glargine (Lantus Solostar) 100 Unit/Ml Inj, 15 UNIT SC HS for 90 Days, #90 INJ 1 Refill Prov:BELLE VANEGAS MD 09/03/24 Empagliflozin (Jardiance) 25 Mg Tab, 25 MG PO DAILY for 90 Days, #90 TAB 1 Refill Prov:BELLE VANEGAS MD 09/03/24 Apixaban Base (ELIQUIS) 5 Mg Tab, 5 MG PO BID for 90 Days, #180 TAB 1 Refill Prov:BELLE VANEGAS MD 09/03/24 Atorvastatin Calcium (ATORVASTATIN CALCIUM) 40 Mg Tab, 1 TAB PO DAILY, #90 TAB 1 Refill Prov:BELLE VANEGAS MD 09/03/24 Carvedilol (COREG) 12.5 Mg Tab, 12.5 MG PO BID for 90 Days, #180 TAB 1 Refill Prov:BELLE VANEGAS MD 09/03/24 Aspirin (Aspir-Low) 81 Mg Tab, 81 MG PO DAILY for 90 Days, #90 MG 1 Refill Prov:BELLE VANEGAS MD 09/03/24 Sacubitril-Valsartan (Entresto 49-51 mg) 1 Tab Tab, 1 TAB PO BID for 90 Days, #180 TAB 1 Refill Prov:BELLE VANEGAS MD 09/03/24 Reported Medications Ergocalciferol (VITAMIN D2) 2,000 Unit Tab, [address] UNIT PO Weekly, TAB 08/24/24 Spironolactone (Spironolactone) 25 Mg Tab, 1 TAB PO DAILY, #90 TAB 1 Refill 08/24/24 Pantoprazole Sodium Sesquihydr (Protonix) 40 Mg Tab, 40 MG PO DAILY, #30 TAB 08/24/24 Past Medical History Cardiac: CHF, HTN Pulmonary: No pertinent Hx Central Nervous System: No pertinent Hx GI: No pertinent Hx Hemotology/Oncology: No pertinent Hx Hepatobiliary: No pertinent Hx Psychiatric: No pertinent Hx Musculoskeletal: No pertinent Hx Rheumotologic: No pertinent Hx Infectious Disease: No peritnent Hx ENT: No pertinent Hx Renal/: No pertinent Hx Endocrine: IDDM Dermatology: No pertinent Hx Past Surgical History: Other Others left BKA Patient Family History: Patient reports no known family medical history. Smoker: No Hx (Negative) Alocohol: Occassional Drugs: None Lives with: With family Review of Systems Constitutional: No symptom reported Ears, Nose, & Throat: No symptom reported Eyes: No symptom reported Pulmonary/Respiratory: No symptom reported Cardiovascular: No symptom reported Gastrointestinal: No symptom reported Genitourinary: No symptom reported Musculoskeletal: No symptom reported Skin: No symptom reported Psychiatric: No symptom reported Endocrine: No symptom reported Hemotologic/Lymphatic: No symptom reported H&P Exam Vital Signs Vital Signs Date Time Temp Pulse Resp B/P (MAP) Pulse Ox O2 Delivery O2 Flow Rate FiO2 09/28/24 10:17 97 122/63 09/28/24 09:13 98.2 20 97 98.2 09/28/24 08:00 Room Air* 0 21 General Appeara: Well developed, Well nourished, Normal Appearance Head Exam: Normal inspection Neck Exam: Normal inspection Pulmonary/Respiratory: Normal inspection, Normal breath sounds Cardiovascular/Chest: Normal inspection, Regular rate Abdominal Exam: Normal bowel sounds, Soft Legs: left leg other (left BKA) Neuro/Mental St: Alert, Oriented Eye contact/ Speech: Cooperative, Good eye contact Thoughts/Psych: Normal thought pattern Wounds left bka wound dehiscence, no erythema, no purulent drainage Labs/Xrays Labs Test 09/28/24 07:26 09/28/24 05:22 09/27/24 10:47 09/27/24 05:31 Range/Units Sodium Level 137 136-145 mmol/L Potassium Level 4.0 3.5-5.1 mmol/L Chloride Level 105 98-107 mmol/L Carbon Dioxide Level 22 20-31 mmol/L Anion Gap 10 5-15 Blood Urea Nitrogen 17 9-23 mg/dL Creatinine 0.88 0.700-1.30 mg/dL Glomerular Filtration Rate Calc 102 >90 mL/min BUN/Creatinine Ratio 19.3 10.0-20.0 Serum Glucose 122 H 74-106 mg/dL Calcium Level 9.9 8.7-10.4 mg/dL POC Glucose 140 H 70-106 mg/dl White Blood Count 7.2 4.4-10.8 10^3/uL Red Blood Count 4.25 L 4.5-5.90 10^6/uL Hemoglobin 12.5 L 13.5-17.5 g/dL Hematocrit 38.3 L 41.0-53.0 % Mean Corpuscular Volume 90.1 80.0-100.0 fL Mean Corpuscular Hemoglobin 29.5 28.0-32.0 pg Mean Corpuscular Hemoglobin Concent 32.7 32.0-36.0 g/dL Red Cell Distribution Width 17.7 H 11.8-14.3 % Platelet Count 207 140-450 10^3/uL Mean Platelet Volume 7.5 6.9-10.8 fL Neutrophils (%) (Auto) 65.0 37.0-80.0 % Lymphocytes (%) (Auto) 22.0 10.0-50.0 % Monocytes (%) (Auto) 11.2 0.0-12.0 % Eosinophils (%) (Auto) 1.4 0.0-7.0 % Basophils (%) (Auto) 0.4 0.0-2.0 % Neutrophils # (Auto) 4.7 1.6-8.6 10 ^3/uL Lymphocytes # (Auto) 1.6 0.4-5.4 10 ^3/uL Monocytes # (Auto) 0.8 0-1.3 10 ^3/uL Eosinophils # (Auto) 0.1 0-0.8 10 ^3/uL Basophils # (Auto) 0 0-0.2 10 ^3/uL Nucleated Red Blood Cells 0.2 % Urine Color Light-yellow Yellow Urine Clarity Clear Clear Urine pH 5.0 5.0-9.0 Urine Specific [place] 1.026 1.001-1.035 Urine Protein Trace H Negative Urine Ketones Negative Negative Urine Blood Negative Negative /uL Urine Nitrite Negative Negative Urine Bilirubin Negative Negative Urine Urobilinogen Normal Negative mg/dL Urine Leukocyte Esterase Negative Negative /uL Urine RBC None seen 0 - 3 /hpf Urine Microscopic WBC 1 0-3 /HPF Urine Squamous Epithelial Cells None seen <5 /hpf Urine Bacteria None seen None Seen /hpf Urine Glucose 4+ H Normal mg/dL Urine Opiates Screen Neg NEGATIVE Urine Fentanyl Screen Neg NEGATIVE Urine Barbiturates Screen Neg NEGATIVE Urine Phencyclidine Screen Neg NEGATIVE Urine Amphetamines Screen Neg NEGATIVE Urine Benzodiazepines Screen Neg NEGATIVE Urine Cocaine Screen Neg NEGATIVE Urine Cannabinoids Screen Neg NEGATIVE Test 09/27/24 05:05 09/26/24 23:12 09/26/24 20:08 Range/Units Erythrocyte Sedimentation Rate 16 0-20 mm/hr Hemoglobin A1c 5.9 H <5.7 % A1C Phosphorus Level 3.9 2.4-5.1 mg/dL Magnesium Level 2.1 1.6-2.6 mg/dL Total Bilirubin 0.7 0.2-1.0 mg/dL Aspartate Amino Transferase (AST) 16 13-40 U/L Alanine Aminotransferase (ALT) 18 7-40 U/L Alkaline Phosphatase 107 46-116 U/L C-Reactive Protein High Sensitivity 0.10 <1.0 mg/dL Total Protein 7.0 5.7-8.2 g/dL Albumin 4.1 3.2-4.8 g/dL Triglycerides Level 211 H < 150 mg/dL Cholesterol Level 204 H < 200 mg/dL LDL Cholesterol 110 H < 100 mg/dL HDL Cholesterol 53 40-59 mg/dL Vitamin B12 Level 355 211-911 pg/mL Vitamin D 25-Hydroxy 27.6 L 30.0-100 ng/mL Thyroid Stimulating Hormone (TSH) 0.80 0.55-4.78 uIU/mL Lactic Acid Level 1.5 0.4-2.0 mmol/L Prothrombin Time 10.9 9.3-11.8 sec Prothrombin Time INR 1.03 0.9-1.15 Activated Partial Thromboplast Time 30.0 24.5-34.5 SEC Microbiology Date/Time Source Procedure Growth Status 09/26/24 23:12 Blood Blood Culture - Preliminary NO GROWTH AFTER 24 HOURS OF INCUBATION. Resulted Assessment/Plan Primary Diagnosis left bka wound dehiscence, from injury Plan admit patient cleanse wound wound vac application discharge in 24 hours Plan discussed with: Patient, Other (Dr. Foreman ) Visit Coding Surgery Date of Service if different f: Sep 27, 2024 Billing Provider: NILE FOREMAN MD Surgery Visit Codes: 69813 - INP CONSULT <80 MIN ESTEBAN OLGUIN D[facility]LLER AND REAMER Sep 28, 2024 12:16
--- NOTE | 2024-09-28 12:27 | DVHPN2 ---
Subjective Date Seen: Sep 28, 2024 Post op day Post op day: 0 Patient reports: No new complaints, Feels better Nursing reports: No new complaints General: Normal HNT: Normal Cardiovascular: Normal Respiratory: Normal Gastrointestinal: Normal Genitourinary: Normal Musculoskeletal: Normal Neurological: Normal Objective Vitals Vital Sign Date Time Temp Pulse Resp B/P (MAP) Pulse Ox O2 Delivery O2 Flow Rate FiO2 09/28/24 10:17 97 122/63 09/28/24 09:13 98.2 20 97 98.2 09/28/24 08:00 Room Air* 0 21 Total Intake and Output 09/27/24 09/27/24 09/28/24 15:00 23:00 07:00 Intake Total 750 ml 800 ml Output Total 1025 ml Balance 750 ml -225 ml Medications Current Medications Medications Dose Ordered Sig/Rosana Route Start Time Stop Time Status Last Admin Dose Admin Acetaminophen 325 mg Q4HP PRN PO 09/26/24 23:00 UNV Ondansetron HCl 4 mg Q4HP PRN IV 09/26/24 23:00 Diagnostic Test (Pha) 1 strip Q6HR 09/27/24 00:00 09/28/24 05:28 1 STRIP Insulin Human Regular Q6HR SC 09/27/24 00:00 09/28/24 05:29 2 UNITS Dextrose 50 ml UD PRN IV 09/26/24 23:00 Acetaminophen 650 mg Q8HR PRN PO 09/26/24 23:00 Aspirin 81 mg DAILY PO 09/26/24 23:00 09/28/24 10:17 81 MG Carvedilol 12.5 mg BID PO 09/26/24 23:00 09/28/24 10:17 12.5 MG Patient Own Medication 25 mg DAILY PO 09/26/24 23:00 Levofloxacin/ Dextrose 100 ml @ 100 mls/hr DAILY IV 09/27/24 00:00 09/28/24 10:14 100 MLS/HR Hydralazine HCl 10 mg Q6HP PRN IV 09/27/24 00:15 09/27/24 23:34 10 MG Spironolactone 25 mg DAILY PO 09/27/24 10:00 09/28/24 10:17 25 MG Atorvastatin Calcium 40 mg HS PO 09/27/24 22:00 09/27/24 21:42 40 MG Sacubitril/ Valsartan 2 tab BID PO 09/27/24 22:00 09/28/24 10:17 2 TAB Apixaban 5 mg BID PO 09/27/24 22:00 09/28/24 10:17 5 MG Pantoprazole Sodium 40 mg DAILY IV 09/28/24 10:00 09/28/24 10:15 40 MG Ergocalciferol 50,000 unit Q7D PO 09/27/24 16:45 09/27/24 17:34 50,000 UNIT General: Normal, Well developed, Obese Head/Eyes: Normal, Atraumatic ENT: Normal, Normal ears Neck: Normal, Supple Lungs: Normal Cardiovascular: Normal, Regular rate and rhythm Abdominal: Normal, Soft, Normal inspection Skin: Normal Labs and Microbiology Laboratory Tests 09/28/24 07:26 09/27/24 10:47 Test 09/28/24 07:26 Range/Units Serum Glucose 122 H 74-106 mg/dL Ass/Plan Labs and/or images reviewed: Labs reviewed by me, Image(s) reviewed by me Problem List Assessment and plan S/p left BKA guillotine, wound dehiscence History of necrotizing fasciitis - CXR: Hypoventilatory study with prominent pulmonary vessels likely due to patient's body habitus - left knee x-ray: No evidence of acute fracture or dislocation. Soft tissue edema and swelling distally. - IV levofloxacin as prescribed - consulted surgery -pending blood culture, wound culture, MRSA screening report. Heart failure with reduced ejection fraction 40%, currently stable Hypertension -continue aspirin 80 mg p.o. daily -continue carvedilol 12.5 mg p.o. b.i.d. -continue Entresto as prescribed -continue spironolactone 25 mg p.o. daily -continue atorvastatin 40 mg p.o. q.h.s. Type 2 diabetes, uncontrolled, insulin dependent - mild sliding scale insulin History of DVT Hypercoagulable state secondary to above - continue Eliquis 5 mg b.i.d. - Hyperlipidemia -continue atorvastatin 40 mg p.o. q.h.s. Vitamin-D deficiency Continue ergo cholecalciferol as prescribed Diabetic diet Goals of care, Code status ; discussed with >15 minutes PUD prophylaxis: Pantoprazole DVT prophylaxis: Eliquis Plan discussed with Dr. Aziz , nursing staff, Total time spent on patient evaluation, chart review, assessment and plan, discussion discussion >35 minutes Problems(with codes): (1) Wound dehiscence, surgical Assessment/Plan no new complaints, full range of motion of the left knee wound vac applied by wound care patient ok to discharge per surgery point of view follow up with surgery clinic in one week Prognosis: Excellent Plan discussed with patient, patients son, Dr. Foreman Visit Coding Surgery Date of Service if different f: Sep 28, 2024 Billing Provider: NILE FOREMAN MD Surgery Visit Codes: [id number] INP/OBS CARE(HIGH) ESTEBAN OLGUIN NP Sep 28, 2024 12:27
== END 2024-09-28 18:32 | disposition home health service (06) | DRG 813 ==
LOC: ER 18:42 → OVERFLOW 22:54 → TELE-EAST 09-27 12:12 → EAST 09-27 20:32
PROVIDERS: ADMIT Student in an Organized Health Care Education/Training Program; ATTEND Emergency Medicine
DX: T81.31XA Disruption of external operation (surgical) wound, not elsewhere classified, initial encounter (principal); D68.69 Other thrombophilia; I50.22 Chronic systolic (congestive) heart failure; I11.0 Hypertensive heart disease with heart failure; E11.65 Type 2 diabetes mellitus with hyperglycemia; E78.5 Hyperlipidemia, unspecified; E55.9 Vitamin D deficiency, unspecified; Z89.512 Acquired absence of left leg below knee; Z79.01 Long term (current) use of anticoagulants; Z79.4 Long term (current) use of insulin; Z79.84 Long term (current) use of oral hypoglycemic drugs; Z79.899 Other long term (current) drug therapy; Z87.39 Personal history of other diseases of the musculoskeletal system and connective tissue; Z87.891 Personal history of nicotine dependence; Z86.718 Personal history of other venous thrombosis and embolism; Y83.5 Amputation of limb(s) as the cause of abnormal reaction of the patient, or of later complication, without mention of misadventure at the time of the procedure; Z79.82 Long term (current) use of aspirin
CPT/HCPCS: 36415; 71045; 73560; 80048; 80053; 80061; 80307; 81001; 82306; 82607; 82962; 83036; 83605; 83735; 84100; 84443; 85025; 85610; 85652; 85730; 86141; 87040; 87077; 87081; 87186; 87205; 96365; 97163; 99291; G0378; J1815; J1956; J2470